=== PATIENT | female | born 1960 | race Two or more races ===

== ENCOUNTER 2020-10-09 09:27 | Outpatient (REF) | payer OTHER, SELFPAY ==
--- NOTE | 2020-10-09 09:33 | MM_ITS ---
EXAMINATION: MM SCREENING DIGITAL BREAST TOMOSYNTHESIS, BILATERAL CLINICAL INFORMATION: Screening. Asymptomatic. The lifetime risk of breast cancer based on the Tyrer-Cuzick Model is 6%. COMPARISON: Mammography: 09/08/2019, 08/16/2018 TECHNIQUE: Digital breast tomosynthesis is performed in both the craniocaudal and mediolateral oblique views along with computer-aided detection (CAD). Synthesized 2D images are generated from the tomosynthesis. FINDINGS: There are scattered areas of fibroglandular density (ACR BI-RADS breast composition Category b). There is no developing density or interval mass or architectural abnormality. There are scattered bilateral benign round and rim calcifications. No suspicious calcifications. The axilla and skin contours are unremarkable. MM/MM tomosynthesis screening BI IMPRESSION: No mammographic evidence of malignancy. ASSESSMENT: BI-RADS 2: Benign RECOMMENDATION: Routine annual mammography screening. This patient's information was entered into a reminder system with a target due date for their next mammogram.
[2020-10-09 11:44] LABS: Estimated Average Glucose 186 mg/dL; Hemoglobin A1c % 8.1 %
[2020-10-09 12:02] LABS: Anion Gap 13 (12-20); Blood Urea Nitrogen 19 mg/dL (9-16); Calcium 10.3 mg/dL (8.4-10.2); Carbon Dioxide 31 mmol/L (22-29); Chloride 102 mmol/L (96-108); Estimated Glomerular Filt Rate > 60; Potassium 4.9 mmol/l (3.3-5.1); Sodium 141 mmol/L (135-145); Uric Acid 3.6 mg/dL (2.4-5.7)
[2020-10-09 12:05] LABS: Glucose Urine UA 500 MG/DL (NEG); Leukocyte Esterase Urine NEG (NEG); Nitrite Urine NEG (NEG); Urine Blood NEG (NEG); Urine Ketones NEG (NEG); Urine Protein NEG (NEG-TRACE)
[2020-10-09 12:08] LABS: Appearance Urine CLEAR; Color Urine YELLOW
[2020-10-09 12:25] LABS: Vitamin D 25-OH Total 26.8 ng/mL (>30)
[2020-10-09 12:32] LABS: Creatinine Urine 71.45 mg/dL; Protein/Creatinine Ratio, Ur 0.13 (<0.2); Total Protein Urine Random 9 mg/dL (<12)
[2020-10-09 12:57] LABS: Bacteria Urine TRACE /LPF; RBC Urine 0 /HPF (0); Squamous Epithelial Cell Urine 1+ /LPF; WBC Urine 0 /HPF (0-4)
[2020-10-09 12:58] LABS: Amorphous Sediment Urine 1+ /LPF
[2020-10-13 15:01] LABS: Renin 12.24 ng/mL/h (0.25-5.82)
== END 2020-10-09 09:28 | disposition home or self-care (01) ==
LOC: HO.MAMMO 09:27
PROVIDERS: Absent Provider Internal Medicine Nephrology; PCP Nurse Practitioner Family; Visit Provider Nurse Practitioner Family
DX: Z12.31 Encounter for screening mammogram for malignant neoplasm of breast (principal); E11.22 Type 2 diabetes mellitus with diabetic chronic kidney disease; N18.9 Chronic kidney disease, unspecified
CPT/HCPCS: 77063; 77067; 80051; 81001; 82088; 82306; 82310; 82565; 83036; 84156; 84244; 84520; 84550

== ENCOUNTER 2020-11-12 09:08 | Outpatient (REF) | payer OTHER, SELFPAY ==
[2020-11-15 11:18] LABS: HPV mRNA E6/E7 rflx Not Detected (Not Detected)
== END 2020-11-12 09:09 | disposition home or self-care (01) ==
LOC: HO.LAB 09:08
PROVIDERS: PCP Nurse Practitioner Family; Visit Provider Obstetrics & Gynecology
DX: Z12.4 Encounter for screening for malignant neoplasm of cervix (principal); R32 Unspecified urinary incontinence
CPT/HCPCS: 87624; 87625; 88142

== ENCOUNTER 2020-12-14 07:05 | Day surgery (SDC) | payer OTHER, SELFPAY ==
[2020-12-10 13:56] VITALS: BMI 28.9
--- NOTE | 2020-12-13 08:38 | HO.ANESPROP2 ---
Documented by User: Jemima Henderson 12/13/20 08:39 HPI - Anesthesia Eval Consult details Narrative: 60yo F for Colonoscopy PMFSH Past Medical History Medical History Arthritis Diabetes Dyslipidemia HTN (hypertension) Renal cyst Surgical History Surgical History H/O cervical polypectomy H/O colonoscopy History of bilateral tubal ligation History of History of carpal tunnel release History of esophagogastroduodenoscopy (EGD) Social History Social History Alcohol intake: never Smoking Status: Never smoker Second Hand Smoke Exposure: No Use of substances other than those prescribed or required for medical reasons: No Advance Directives: No Advance Directives Information Provided: No Advance Directives on File: No Sexual orientation: Straight/Heterosexual Gender identity: female Meds Allergies Allergy/AdvReac Type Severity Reaction Status Date / Time No Known Allergies Allergy Verified 12/14/20 07:13 Home Medications Medication Instructions Recorded Confirmed Type alcohol swabs pad TOPICAL BID 11/12/20 11/12/20 History blood sugar diagnostic #10 ea 11/12/20 11/12/20 History cetirizine 10 mg tablet 10 mg PO DAILY 11/12/20 11/12/20 History cholecalciferol (vitamin D3) 25 25 mcg PO QAM 11/12/20 12/10/20 History mcg (1,000 unit) tablet glipizide 5 mg tablet, extended 5 mg PO BID 11/12/20 12/10/20 History release 24 hr irbesartan 75 mg tablet 75 mg PO DAILY 11/12/20 12/10/20 History lancets 33 gauge #100 ea 11/12/20 11/12/20 History metformin 1,000 mg tablet 1,000 mg PO BID 11/12/20 12/10/20 History simvastatin 40 mg tablet 40 mg PO BEDTIME 11/12/20 12/10/20 History sitagliptin 100 mg tablet 100 mg PO DAILY 11/12/20 12/10/20 History sulindac 200 mg tablet mg PO 11/12/20 11/12/20 History venlafaxine 37.5 mg 37.5 mg PO QAM 11/12/20 12/10/20 History capsule,extended release 24 hr Exam Exam Date and Time: December 13, 2020 0838 Height,Weight and Vital Signs: Height 5 ft 1 in Weight 69.4 kg Pertinent Lab Results Pertinent Lab Results: Laboratory Tests 07/18/20 10/09/20 09:17 10:35 WBC 6.0 Hgb 12.0 Hct 38.5 Plt Count 162 Sodium 141 Potassium 4.9 Chloride 102 Carbon Dioxide 31 H BUN 19 H Creatinine 0.78 Assessment and Plan Assessment Anesthesia Assessment: Chart Reviewed Documented by User: Elsy García 12/14/20 07:48 PMFSH Past Medical History Medical History Arthritis Diabetes Dyslipidemia HTN (hypertension) Renal cyst Family History Family history of problems with anesthesia: No Surgical History Surgical History H/O cervical polypectomy H/O colonoscopy History of bilateral tubal ligation History of History of carpal tunnel release History of esophagogastroduodenoscopy (EGD) History of Problems with Anesthesia: No Social History Social History Alcohol intake: never Smoking Status: Never smoker Second Hand Smoke Exposure: No Use of substances other than those prescribed or required for medical reasons: No Advance Directives: No Advance Directives Information Provided: No Advance Directives on File: No Sexual orientation: Straight/Heterosexual Gender identity: female Meds Allergies Allergy/AdvReac Type Severity Reaction Status Date / Time No Known Allergies Allergy Verified 12/14/20 07:13 Home Medications Medication Instructions Recorded Confirmed Type alcohol swabs pad TOPICAL BID 11/12/20 11/12/20 History blood sugar diagnostic #10 ea 11/12/20 11/12/20 History cetirizine 10 mg tablet 10 mg PO DAILY 11/12/20 11/12/20 History cholecalciferol (vitamin D3) 25 25 mcg PO QAM 11/12/20 12/10/20 History mcg (1,000 unit) tablet glipizide 5 mg tablet, extended 5 mg PO BID 11/12/20 12/10/20 History release 24 hr irbesartan 75 mg tablet 75 mg PO DAILY 11/12/20 12/10/20 History lancets 33 gauge #100 ea 11/12/20 11/12/20 History metformin 1,000 mg tablet 1,000 mg PO BID 11/12/20 12/10/20 History simvastatin 40 mg tablet 40 mg PO BEDTIME 11/12/20 12/10/20 History sitagliptin 100 mg tablet 100 mg PO DAILY 11/12/20 12/10/20 History sulindac 200 mg tablet mg PO 11/12/20 11/12/20 History venlafaxine 37.5 mg 37.5 mg PO QAM 11/12/20 12/10/20 History capsule,extended release 24 hr Exam Height,Weight and Vital Signs: Vital Signs Temp Pulse Resp BP Pulse Ox 12/14/20 07:36 97.9 F 108 H 16 149/81 H 97 Pertinent Lab Results Pertinent Lab Results: POC 232mg/dl Airway Mallampati Class: II TM Dist: >3cm Neck ROM: Full Denture: Upper and Lower Heart: RRR Lungs: CTAB Assessment and Plan Assessment Anesthesia Assessment: Anesthesia Plan Discussed and Chart Reviewed Final Anesthetic Review NPO: Yes ASA Class: II Final Preanesthetic Review: No Changes in Pt Med Stat, Meds/Allgs Chart Reviewed, Consent Obtained/Reviewed and Anes Risks/Benef Reviewed Patient Risk: Low Procedure Risk: Low Assessment/Block/Sedation in SS: Assess/Block/Sedation-SS Anesthetic Plan Anesthetic Plan: MAC: Disposition: Standard PACU
[2020-12-14 07:36] VITALS: BP 149/81; PULSE 108; RESP 16; TEMP 36.6; O2SAT 97
[2020-12-14] MEDS: Lactated Ringers 1,000 ML 100 ML IVCONT (07:44)
[2020-12-14 07:50] LABS: Glucose, Whole Blood 232 mg/dL (60-115)
--- NOTE | 2020-12-14 08:00 | MHC.SHP ---
Pre-Procedural Eval Section B Chief Complaint: Screening Details of Present Illness: screening Relevant Family History (Specify if Yes): No Relevant Social History: None Present Medications: see Short Stay Collaborative assessment Medical History: No relevant PMH History of Previous Operations: No relevant previous surgery Allergies: Allergies Allergy/AdvReac Type Severity Reaction Status Date / Time No Known Allergies Allergy Verified 12/14/20 07:13 Review of Systems Sugical H&P ROS: Negative: Constitution, Cardiovascular, Respiratory, Neurological, Psychiatric, Hem-Onc, Allergic/Immunologic, Gastrointestinal, Genitourinary, Musculoskeletal, Integumentary, Endocrine and Eyes/Ears/Nose/Throat Exam Surgical H&P Exam: Normal: HEENT, Normal: Heart, Normal: Lungs, Normal: Extremities, Normal: Abdomen, Normal: Skin and Normal: Neurological Plan Diagnosis/Plan: Unchanged I have reviewed the history and physical and performed a pertinent physical examination on my patient. No changes have occurred unless specified.
[2020-12-14 08:30] VITALS: BP 100/61; PULSE 97; RESP 16; TEMP 36.1; O2SAT 99
--- NOTE | 2020-12-14 08:30 | PM.OP ---
Brief Operative Note Date of Service: 12/14/20 Pre-op diagnosis: screenihng Post-op diagnosis: same (colon polyp) Procedure: colonoscopy Surgeon: Barron Hdz Anesthesia: MAC Estimated blood loss (mL): 0 Pathology: other (polyp) Condition: stable Disposition: PACU
[2020-12-14 08:45] VITALS: BP 113/41; PULSE 95; RESP 16; TEMP 36.1; O2SAT 98
--- NOTE | 2020-12-14 09:03 | HO.POSTANES ---
Post Anesthesia Evaluation Post Anesthesia Evaluation Vital Signs: Vital Signs Temp Pulse Resp BP Pulse Ox 12/14/20 08:45 97 F 95 16 113/41 L 98 12/14/20 08:30 97 F 97 16 100/61 99 12/14/20 07:36 97.9 F 108 H 16 149/81 H 97 Anesthesia: General (tiva) Mental Status: Awake Pain Control: Satisfactory Nausea/Vomiting: None Hydration: Adequate Anesthesia-Related Issues: No Anes. Related Issues
--- NOTE | 2020-12-14 09:07 | OP_ITS ---
SURGEON: Barron Hdz MD INDICATIONS: Colon cancer screening. PREOPERATIVE DIAGNOSIS: POSTOPERATIVE DIAGNOSIS: PROCEDURE PERFORMED: Colonoscopy to the terminal ileum with snare polypectomy. ESTIMATED BLOOD LOSS: COMPLICATIONS: ANESTHESIA: Medications, monitored anesthesia care. ASSISTANTS: SPECIMENS: DESCRIPTION OF PROCEDURE: History and physical was performed. The risks and benefits of the procedure were explained to the patient. Informed consent was obtained. The patient was placed in the left lateral decubitus position. A digital rectal exam was performed and was found to be normal. The Olympus pediatric video colonoscope was introduced into the rectum and advanced to the cecum without difficulty. The cecum was identified by transillumination, palpation, and identification of ileocecal valve. Examination was performed. The scope was removed. She tolerated the procedure well and was returned to the recovery area in stable condition. FINDINGS: The terminal ileum was normal. Visualized colonic mucosa was normal. There was some liquid stool coating the mucosa, which was washed and suctioned. A single polyp in the rectum measuring approximately 7 mm was removed with a snare and recovered via suction. No other polyps were identified. Retroflexed examination was normal. IMPRESSION: Colon polyp. RECOMMENDATION: Follow up the biopsy results. MD AFRICA Garcia/AMADEO / [id number]
== END 2020-12-14 09:10 | disposition home or self-care (01) ==
PROVIDERS: PCP Nurse Practitioner Family; Visit Provider Internal Medicine Gastroenterology
PROC: 0DJD8ZZ Inspection of Lower Intestinal Tract, Via Natural or Artificial Opening Endoscopic (ICD-10-PCS; CPT 45378; principal; 2020-12-14 08:20)
DX: Z12.11 Encounter for screening for malignant neoplasm of colon (principal); Z80.0 Family history of malignant neoplasm of digestive organs; D12.8 Benign neoplasm of rectum; I10 Essential (primary) hypertension; E11.9 Type 2 diabetes mellitus without complications; Z79.84 Long term (current) use of oral hypoglycemic drugs; Z79.899 Other long term (current) drug therapy
CPT/HCPCS: 45385; 82947; 88305; J2370

== ENCOUNTER 2021-04-24 13:46 | Outpatient (REF) | payer OTHER, SELFPAY ==
--- NOTE | ~2021-04-24 | XR_ITS ---
EXAMINATION: XR SHOULDER, RIGHT CLINICAL INFORMATION: Right shoulder pain. COMPARISON: 12/18/2016 right shoulder radiographs. TECHNIQUE: AP external rotation, Grashey, scapular Y, and axillary views of the right shoulder. FINDINGS: Mild right acromioclavicular degenerative joint changes are seen. There is no acute fracture or dislocation. The soft tissues are unremarkable. XR/XR shoulder RT min 2V IMPRESSION: Mild right acromioclavicular degenerative joint changes without significant change. No acute abnormality.
[2021-04-24 15:46] LABS: Alanine Aminotransferase 28 U/L (0-31); Albumin Level 4.6 g/dL (3.5-5.0); Alkaline Phosphatase 73 U/L (39-117); Anion Gap 16 (12-20); Aspartate Amino Transferase 21 U/L (5-31); Bilirubin Total 0.4 mg/dL (0.0-1.0); Blood Urea Nitrogen 19 mg/dL (9-16); Calcium 10.2 mg/dL (8.4-10.2); Carbon Dioxide 26 mmol/L (22-29); Chloride 100 mmol/L (96-108); Estimated Glomerular Filt Rate > 60; Glucose Random 253 mg/dL (60-115); Potassium 4.5 mmol/L (3.3-5.1); Sodium 137 mmol/L (135-145); Total Protein 7.5 g/dL (6.5-8.0)
== END 2021-04-24 13:47 | disposition home or self-care (01) ==
LOC: HO.LAB 13:46
PROVIDERS: PCP Nurse Practitioner Family; Visit Provider Student in an Organized Health Care Education/Training Program
DX: M89.49 Other hypertrophic osteoarthropathy, multiple sites (principal)
CPT/HCPCS: 36415; 73030; 80053; 99212

== ENCOUNTER 2021-09-16 10:10 | Outpatient (REF) | payer OTHER, SELFPAY ==
[2021-09-16 11:26] LABS: Thyroid Stimulating Hormone 1.76 uIU/mL (0.32-4.0)
[2021-09-17 08:41] LABS: Lyme Abs Screen <0.90 index
[2021-09-17 21:51] LABS: Prolactin 3.7 ng/mL
== END 2021-09-16 10:11 | disposition home or self-care (01) ==
LOC: HO.LAB 10:10
PROVIDERS: PCP Nurse Practitioner Family; Visit Provider Psychiatry & Neurology Neurology
DX: E23.6 Other disorders of pituitary gland (principal); I67.9 Cerebrovascular disease, unspecified
CPT/HCPCS: 36415; 84146; 84443; 86617; 86618

== ENCOUNTER 2021-10-14 10:07 | Outpatient (REF) | payer OTHER, SELFPAY ==
--- NOTE | ~2021-10-14 | MM_ITS ---
EXAMINATION: MM SCREENING DIGITAL BREAST TOMOSYNTHESIS, BILATERAL CLINICAL INFORMATION: Screening. Asymptomatic. The lifetime risk of breast cancer based on the Tyrer-Cuzick Model is 6%. COMPARISON: Mammography: 10/09/2020, 09/08/2019, 08/16/2018 TECHNIQUE: Digital breast tomosynthesis is performed in both the craniocaudal and mediolateral oblique views along with computer-aided detection (CAD). Synthesized 2D images are generated from the tomosynthesis. Additional right MLO view is provided. FINDINGS: There are scattered areas of fibroglandular density (ACR BI-RADS breast composition Category b). There are no significant masses, abnormal calcifications, or other abnormalities. Parenchymal pattern is similar to prior studies. No significant changes. MM/MM tomosynthesis screening BI IMPRESSION: No mammographic evidence of malignancy. ASSESSMENT: BI-RADS 1: Negative RECOMMENDATION: Routine annual mammography screening. This patient's information was entered into a reminder system with a target due date for their next mammogram.
== END 2021-10-14 10:08 | disposition home or self-care (01) ==
LOC: HO.MAMMO 10:07
PROVIDERS: PCP Nurse Practitioner Family; Visit Provider Nurse Practitioner Family
DX: Z12.31 Encounter for screening mammogram for malignant neoplasm of breast (principal)
CPT/HCPCS: 77063; 77067

== ENCOUNTER → 2021-11-14 14:06 | Outpatient (BNVA) | payer OTHER, SELFPAY | PROVIDERS: PCP Nurse Practitioner Family; Visit Provider Obstetrics & Gynecology ==

== ENCOUNTER 2021-11-25 10:39 | Outpatient (REF) | payer OTHER, SELFPAY ==
--- NOTE | ~2021-11-25 | MR_ITS ---
MRI OF THE BRAIN WITHOUT IV CONTRAST INDICATION: Empty sella syndrome. New onset loss of balance. COMPARISON: Brain MRI 12/18/2015. TECHNIQUE: Multiplanar multisequence MR imaging of the brain was obtained without IV contrast. FINDINGS: There is an expanded empty sella which is unchanged. There is no hydrocephalus, extra-axial surface collection, or herniation. Stable mild T2 signal changes throughout the supratentorial white matter, possibly mild chronic microangiopathy though nonspecific. The major flow voids at the skull base are preserved. There is no acute infarct on diffusion-weighted imaging. There is no intracranial hemorrhage on the gradient recalled echo acquisition. The cerebellar tonsils are normally positioned. The cerebellum and brainstem are normal. The craniocervical junction is normal. Osseous marrow signal intensity is homogenous. Possible partially imaged disc protrusion at C5-C6 resulting in mass effect on the cervical cord that would be better assessed with a dedicated cervical spine MRI if there is cervical myelopathy clinically. MR/MR head/brain wo con IMPRESSION: - Stable expanded empty sella. - Stable mild T2 signal changes throughout the supratentorial white matter, possibly mild chronic microangiopathy though nonspecific. - Possible partially imaged disc protrusion at C5-C6 resulting in mass effect on the cervical cord that would be better assessed with a dedicated cervical spine MRI if there is cervical myelopathy clinically.
== END 2021-11-25 10:40 | disposition home or self-care (01) ==
LOC: HO.MRI 10:39
PROVIDERS: PCP Nurse Practitioner Family; Visit Provider Nurse Practitioner Family
DX: E23.0 Hypopituitarism (principal); R26.89 Other abnormalities of gait and mobility
CPT/HCPCS: 70551

== ENCOUNTER 2021-12-13 10:40 | Outpatient (REF) | payer OTHER, SELFPAY ==
--- NOTE | ~2021-12-13 | MR_ITS ---
EXAMINATION: MR CERVICAL SPINE WITHOUT CONTRAST CLINICAL INFORMATION: Possible partially imaged disc protrusion C5-C6. COMPARISON: Brain MRI 11/25/2021. TECHNIQUE: MRI of the cervical spine was performed using routine sequences without contrast. FINDINGS: The cervical vertebral bodies maintain normal heights and alignment. There is moderate disc height loss at C5-C6 with the remaining disc heights fairly well preserved. A minimal amount of marrow edema is seen at the opposing endplates of C5-C6. Mild intramedullary T2 hyperintensity seen at the C5-C6 level, presumably representing myelomalacia. The cord signal otherwise appears normal. There is redemonstration of an enlarged smoothly expanded the left. Intracranial contents are otherwise unremarkable. No significant extraspinal abnormality is seen. SPINAL LEVELS: C2-C3: No posterior disc abnormality. No spinal canal or neural foraminal stenosis. C3-C4: No posterior disc abnormality. No spinal canal or neural foraminal stenosis. C4-C5: Disc osteophyte complex without spinal canal stenosis. Left uncovertebral hypertrophy narrows left neural foramen. C5-C6: Disc osteophyte complex with uncovertebral hypertrophy and ligamentum flavum infolding result in ventral and dorsal cord deformation with severe spinal canal stenosis. Moderate to severe right and moderate left neural foraminal stenosis. C6-C7: Mild disc bulging. Right-sided perineural cyst. No spinal canal stenosis. Mild uncovertebral hypertrophy. Mild right neural foraminal stenosis. C7-T1: No posterior disc abnormality. No spinal canal or neural foraminal stenosis. MR/MR cervical spine wo con IMPRESSION: At C5-C6 level there is disc osteophyte complex with ligamentum flavum infolding and uncovertebral hypertrophy resulting in severe spinal canal stenosis with deformation of the cord and T2 hyperintense intramedullary signal change likely reflecting myelomalacia. Moderate to severe right and moderate left neural foraminal stenosis. Disc height loss with endplate edema. No significant abnormality is seen at the remaining cervical levels.
== END 2021-12-13 10:41 | disposition home or self-care (01) ==
LOC: HO.MRI 10:40
PROVIDERS: Visit Provider Nurse Practitioner Family
DX: R26.89 Other abnormalities of gait and mobility (principal); R51.9 Headache, unspecified
CPT/HCPCS: 72141

== ENCOUNTER 2022-02-07 13:00 | Outpatient (RCR) | payer OTHER, SELFPAY | END 2022-03-25 13:19 | disposition home or self-care (01) | LOC: HO.PT 13:00 | PROVIDERS: PCP Nurse Practitioner Family; Visit Provider Physician Assistant | DX: M54.2 Cervicalgia (principal) | CPT/HCPCS: 97110; 97140; 97161; 97530 ==

== ENCOUNTER → 2022-04-25 12:22 | Outpatient (BNVA) | payer OTHER, SELFPAY | PROVIDERS: Visit Provider Nurse Practitioner Family | DX: M89.49 Other hypertrophic osteoarthropathy, multiple sites (principal); M25.512 Pain in left shoulder | CPT/HCPCS: 99212 ==

== ENCOUNTER 2022-05-03 08:22 | Outpatient (REF) | payer OTHER, SELFPAY ==
[2022-05-03 09:46] LABS: Alanine Aminotransferase 19 U/L (0-31); Albumin Level 4.6 g/dL (3.5-5.0); Alkaline Phosphatase 73 U/L (39-117); Anion Gap 12 (12-20); Aspartate Amino Transferase 16 U/L (5-31); Bilirubin Total 0.6 mg/dL (0.0-1.0); Blood Urea Nitrogen 17 mg/dL (9-16); Calcium 9.5 mg/dL (8.4-10.2); Carbon Dioxide 27 mmol/L (22-29); Chloride 106 mmol/L (96-108); Estimated Glomerular Filt Rate > 60; Glucose Random 94 mg/dL (60-115); Potassium 4.9 mmol/L (3.3-5.1); Sodium 140 mmol/L (135-145); Total Protein 7.6 g/dL (6.5-8.0)
== END 2022-05-03 08:23 | disposition home or self-care (01) ==
LOC: HO.LAB 08:22
PROVIDERS: PCP Nurse Practitioner Family; Visit Provider Nurse Practitioner Family
DX: M89.49 Other hypertrophic osteoarthropathy, multiple sites (principal)
CPT/HCPCS: 36415; 80053

== ENCOUNTER 2022-05-12 10:07 | Outpatient (REF) | payer OTHER, SELFPAY ==
--- NOTE | ~2022-05-12 | XR_ITS ---
EXAMINATION: XR SHOULDER, LEFT CLINICAL INFORMATION: Pain COMPARISON: None TECHNIQUE: Four views of the left shoulder. FINDINGS: No acute visible fracture or dislocation. Mild degenerative changes of the glenohumeral and acromioclavicular joint with joint space narrowing and periarticular osteophyte formation. Joint spaces and alignment are otherwise maintained. Soft tissues are unremarkable. Visualized portions of the left chest are unremarkable. XR/XR shoulder LT min 2V IMPRESSION: 1. No acute visible fracture or dislocation. 2. Mild degenerative changes of the glenohumeral and acromioclavicular joint.
== END 2022-05-12 10:08 | disposition home or self-care (01) ==
LOC: HO.XRAY 10:07
PROVIDERS: PCP Nurse Practitioner Family; Visit Provider Nurse Practitioner Family
DX: M25.512 Pain in left shoulder (principal)
CPT/HCPCS: 73030

== ENCOUNTER 2022-06-16 09:32 | Outpatient (REF) | payer OTHER, SELFPAY ==
[2022-06-16 10:01] LABS: MANUAL DIFF FLAG NO
[2022-06-16 10:20] LABS: Basophils Percent Auto 0.6 % (0-2); Eosinophils Absolute Auto 0.1 X10*3/uL (0.0-0.4); Eosinophils Percent Auto 2.1 % (0-4); Hematocrit 37.7 % (37.0-47.0); Hemoglobin 11.8 g/dl (12.0-16.0); Imm Gran Abs Auto 0.01 X10*3/uL (0.00-0.03); Imm Gran Pct Auto 0.2 % (0.0-0.4); Lymphocytes Absolute Auto 1.8 X10*3/uL (1.2-4.9); Lymphocytes Percent Auto 34.5 % (20-40); Mean Corpuscular HGB Conc 31.3 g/dl (31.0-35.0); Mean Corpuscular Hemoglobin 26.5 pg (27.0-33.0); Mean Corpuscular Volume 84.7 fL (80.0-98.0); Mean Platelet Volume 12.8 fL (9.4-12.3); Monocytes Absolute Auto 0.5 X10*3/uL (0.1-1.2); Monocytes Percent Auto 8.8 % (2-11); Neutrophils Absolute Auto 2.8 x10*3/uL (2.0-8.3); Neutrophils Percent Auto 53.8 % (45-73); Platelet Count 175 X10*3/uL (160-400); Red Blood Count 4.45 X10*6/uL (4.20-5.50); Red Cell Distribution Width 14.4 % (11.0-16.0); White Blood Count 5.2 X10*3/uL (4.8-10.8)
[2022-06-16 10:27] LABS: Appearance Urine CLEAR; Color Urine YELLOW; Glucose Urine UA >=1000 MG/DL (NEG); Leukocyte Esterase Urine NEG (NEG); Nitrite Urine NEG (NEG); PH 5.5 (5.0-8.0); Specific Gravity - Urine >= 1.030 (1.005-1.025); Urine Blood NEG (NEG); Urine Ketones NEG (NEG); Urine Protein NEG (NEG-TRACE)
[2022-06-16 10:46] LABS: Squamous Epithelial Cell Urine 1+ /LPF
[2022-06-16 10:51] LABS: Anion Gap 11 (12-20); Blood Urea Nitrogen 18 mg/dL (9-16); Calcium 9.6 mg/dL (8.4-10.2); Carbon Dioxide 28 mmol/L (22-29); Chloride 106 mmol/L (96-108); Estimated Glomerular Filt Rate > 60; Iron 52 mcg/dL (30-160); Percent Iron Saturation 13 % (15-50); Potassium 4.8 mmol/L (3.3-5.1); Sodium 140 mmol/L (135-145); Total Iron Binding Capacity 403 mcg/dL (228-428); Unsaturated Iron Binding 351 ug/dL
[2022-06-16 11:08] LABS: Estimated Average Glucose 151 mg/dL; Hemoglobin A1c % 6.9 %
[2022-06-16 11:14] LABS: Vitamin D 25-OH Total 30.3 ng/mL (>30)
[2022-06-16 11:53] LABS: Creatinine Urine 108.63 mg/dL; Protein/Creatinine Ratio, Ur 0.09 (<0.2); Total Protein Urine Random 10 mg/dL (<12)
[2022-06-17 11:22] LABS: PTHI 49 pg/mL (16-77)
== END 2022-06-16 09:33 | disposition home or self-care (01) ==
LOC: HO.LAB 09:32
PROVIDERS: PCP Nurse Practitioner Family; Visit Provider Internal Medicine Nephrology
DX: Q61.9 Cystic kidney disease, unspecified (principal); N18.2 Chronic kidney disease, stage 2 (mild); E11.22 Type 2 diabetes mellitus with diabetic chronic kidney disease
CPT/HCPCS: 36415; 80051; 81001; 82306; 82310; 82565; 83036; 83540; 83970; 84156; 84520; 85025

== ENCOUNTER 2022-09-25 13:09 | Outpatient (REF) | payer OTHER, SELFPAY | END 2022-09-25 13:10 | disposition home or self-care (01) | LOC: HO.LNP 13:09 | PROVIDERS: PCP Nurse Practitioner Family; Visit Provider Obstetrics & Gynecology | DX: N90.89 Other specified noninflammatory disorders of vulva and perineum (principal) | CPT/HCPCS: 56605; 56606; 88305; 88312; 99212 ==

== ENCOUNTER 2022-10-15 11:36 | Outpatient (REF) | payer OTHER, SELFPAY ==
--- NOTE | ~2022-10-15 | MM_ITS ---
EXAMINATION: MM SCREENING DIGITAL BREAST TOMOSYNTHESIS, BILATERAL CLINICAL INFORMATION: Screening. Asymptomatic. The lifetime risk of breast cancer based on the Tyrer-Cuzick Model is 5%. COMPARISON: Mammography: 10/14/2021, 10/09/2020, 09/08/2019 TECHNIQUE: Digital breast tomosynthesis is performed in both the craniocaudal and mediolateral oblique views along with computer-aided detection (CAD). Synthesized 2D images are generated from the tomosynthesis. FINDINGS: There are scattered areas of fibroglandular density (ACR BI-RADS breast composition Category b). There is no developing density or interval mass or architectural abnormality. The bilateral axilla and skin contours are unremarkable. There are scattered bilateral benign round calcifications. The left breast also has tightly grouped increased calcifications mid central 3:00 position. Patient will be recalled for additional magnification views to fully characterize. MM/MM tomosynthesis screening BI IMPRESSION: Left: -Tightly grouped calcifications mid central 3:00. Right: -No mammographic evidence of malignancy. ASSESSMENT: BI-RADS 0: Incomplete - Need Additional Imaging Evaluation RECOMMENDATION: 1. Additional views of the left breast (magnification CC, magnification ML). 2. Radiology department staff will contact the patient for additional imaging. This patient's information was entered into a reminder system with a target due date for their next mammogram.
== END 2022-10-15 11:37 | disposition home or self-care (01) ==
LOC: HO.MAMMO 11:36
PROVIDERS: PCP Registered Nurse; Visit Provider Registered Nurse
DX: Z12.31 Encounter for screening mammogram for malignant neoplasm of breast (principal)
CPT/HCPCS: 77063; 77067

== ENCOUNTER → 2022-10-21 12:38 | Outpatient (BNVA) | payer OTHER, SELFPAY | PROVIDERS: PCP Registered Nurse; Visit Provider Obstetrics & Gynecology | DX: N90.89 Other specified noninflammatory disorders of vulva and perineum (principal) | CPT/HCPCS: 99212 ==

== ENCOUNTER 2022-10-29 13:22 | Outpatient (REF) | payer OTHER, SELFPAY ==
--- NOTE | ~2022-10-29 | MM_ITS ---
EXAMINATION: MM DIAGNOSTIC DIGITAL MAMMOGRAPHY, LEFT CLINICAL INFORMATION: Recall from screening for question of increased tightly grouped calcifications mid central left breast 3:00. TC score 5%. COMPARISON: Mammography: 10/15/2022, 10/14/2021, 10/09/2020 TECHNIQUE: Digital mammography is performed in the following views: Magnification left CC, magnification left ML x3. FINDINGS: There are scattered areas of fibroglandular density (ACR BI-RADS breast composition Category b). The additional magnification views show vague tightly grouped calcifications for additional evaluation appear coarse and benign. No suspicious findings. No suspicious changes. There are other scattered benign round calcifications in the breast similar to prior exams. Results are discussed with the patient at time of visit, using an thermal surfacing machine operator. MM/MM added views LT IMPRESSION: Additional magnification views show tightly grouped benign coarse calcifications central left breast. ASSESSMENT: BI-RADS 2: Benign RECOMMENDATION: Routine annual mammography screening. This patient's information was entered into a reminder system with a target due date for their next mammogram.
== END 2022-10-29 13:23 | disposition home or self-care (01) ==
LOC: HO.MAMMO 13:22
PROVIDERS: PCP Registered Nurse; Visit Provider Registered Nurse
DX: R92.1 Mammographic calcification found on diagnostic imaging of breast (principal)
CPT/HCPCS: 77065

== ENCOUNTER 2022-11-21 10:35 | Outpatient (REF) | payer OTHER, SELFPAY ==
[2022-11-21 10:57] LABS: MANUAL DIFF FLAG NO
[2022-11-21 11:24] LABS: Basophils Percent Auto 0.5 % (0-2); Eosinophils Absolute Auto 0.1 X10*3/uL (0.0-0.4); Eosinophils Percent Auto 2.1 % (0-4); Hematocrit 42.2 % (37.0-47.0); Hemoglobin 13.2 g/dl (12.0-16.0); Imm Gran Abs Auto 0.02 X10*3/uL (0.00-0.03); Imm Gran Pct Auto 0.4 % (0.0-0.4); Lymphocytes Absolute Auto 1.5 X10*3/uL (1.2-4.9); Lymphocytes Percent Auto 26.7 % (20-40); Mean Corpuscular HGB Conc 31.3 g/dl (31.0-35.0); Mean Corpuscular Hemoglobin 25.6 pg (27.0-33.0); Mean Corpuscular Volume 81.9 fL (80.0-98.0); Monocytes Absolute Auto 0.5 X10*3/uL (0.1-1.2); Monocytes Percent Auto 7.9 % (2-11); Neutrophils Absolute Auto 3.6 x10*3/uL (2.0-8.3); Neutrophils Percent Auto 62.4 % (45-73); Platelet Count 171 X10*3/uL (160-400); Red Blood Count 5.15 X10*6/uL (4.20-5.50); White Blood Count 5.7 X10*3/uL (4.8-10.8)
[2022-11-21 11:57] LABS: Estimated Average Glucose 140 mg/dL; Hemoglobin A1c % 6.5 %
[2022-11-21 12:58] LABS: Creatinine Urine 32.35 mg/dL; Total Protein Urine Random < 7 mg/dL (<12)
[2022-11-21 15:29] LABS: Anion Gap 12 (12-20); Blood Urea Nitrogen 18 mg/dL (9-16); Calcium 10.4 mg/dL (8.4-10.2); Carbon Dioxide 30 mmol/L (22-29); Chloride 104 mmol/L (96-108); Estimated Glomerular Filt Rate > 60; Iron 99 mcg/dL (30-160); Percent Iron Saturation 26 % (15-50); Potassium 5.2 mmol/L (3.3-5.1); Sodium 141 mmol/L (135-145); Total Iron Binding Capacity 380 mcg/dL (228-428); Unsaturated Iron Binding 281 ug/dL
[2022-11-21 15:44] LABS: Vitamin D 25-OH Total 27.5 ng/mL (>30)
[2022-11-23 13:09] LABS: Calcium (PTHI) 10.4 mg/dL (8.6-10.4); PTHI 25 pg/mL (16-77)
== END 2022-11-21 10:36 | disposition home or self-care (01) ==
LOC: HO.LAB 10:35
PROVIDERS: PCP Physician Assistant; Visit Provider Internal Medicine Nephrology
DX: Q61.9 Cystic kidney disease, unspecified (principal); N18.2 Chronic kidney disease, stage 2 (mild)
CPT/HCPCS: 36415; 80051; 82306; 82310; 82565; 83036; 83540; 83970; 84156; 84520; 85025

== ENCOUNTER → 2022-12-30 10:49 | Outpatient (BNVA) | payer OTHER, SELFPAY | PROVIDERS: PCP Physician Assistant; Visit Provider Obstetrics & Gynecology | DX: N90.89 Other specified noninflammatory disorders of vulva and perineum (principal) | CPT/HCPCS: 99212 ==

== ENCOUNTER 2023-01-06 14:20 | Outpatient (REF) | payer OTHER, SELFPAY | END 2023-01-06 14:21 | disposition home or self-care (01) | LOC: HO.LAB 14:20 | PROVIDERS: PCP Physician Assistant; Visit Provider Obstetrics & Gynecology | DX: L98.499 Non-pressure chronic ulcer of skin of other sites with unspecified severity (principal) | CPT/HCPCS: 99212 ==

== ENCOUNTER 2023-01-06 15:01 | Outpatient (REF) | payer OTHER, SELFPAY | END 2023-01-06 15:02 | disposition home or self-care (01) | LOC: HO.LNP 15:01 | PROVIDERS: Visit Provider Obstetrics & Gynecology | DX: N90.89 Other specified noninflammatory disorders of vulva and perineum (principal) | CPT/HCPCS: 87255 ==

== ENCOUNTER 2023-01-21 13:04 | Outpatient (REF) | payer OTHER, SELFPAY | END 2023-01-21 13:05 | disposition home or self-care (01) | LOC: HO.LNP 13:04 | PROVIDERS: PCP Physician Assistant; Visit Provider Obstetrics & Gynecology | DX: N89.8 Other specified noninflammatory disorders of vagina (principal); A60.00 Herpesviral infection of urogenital system, unspecified | CPT/HCPCS: 99212 ==

== ENCOUNTER 2023-01-21 13:29 | Outpatient (REF) | payer OTHER, SELFPAY ==
[2023-01-21 18:32] LABS: CT PCR NOT DETECTED (Not Detect.); NG PCR NOT DETECTED (Not Detect.)
[2023-01-22 09:01] LABS: BV Int Neg Control Negative (Negative); BV Int Pos Control Positive (Positive)
[2023-01-23 08:59] LABS: HBsAGNum1 0.37 S/CO (0.00-0.99); HIV AB/AG Nonreactive (Nonreactive); HIV Num 1 0.06 S/CO (0.00-0.99); Hepatitis B Surface Antigen Negative (Negative); ~HepC Num1 0.11 S/CO (0.00-0.79); ~Hepatitis C Antibody Nonreactive (Nonreactive)
[2023-01-23 09:15] LABS: Syphilis Screen Nonreactive (Nonreactive)
== END 2023-01-21 13:30 | disposition home or self-care (01) ==
LOC: HO.LAB 13:29
PROVIDERS: PCP Registered Nurse; Visit Provider Obstetrics & Gynecology
DX: A60.00 Herpesviral infection of urogenital system, unspecified (principal)
CPT/HCPCS: 0353U; 86780; 86803; 87340; 87389; 87480; 87510; 87660

== ENCOUNTER 2023-02-06 08:33 | Outpatient (REF) | payer OTHER, SELFPAY ==
[2023-02-06 08:52] LABS: MANUAL DIFF FLAG NO
[2023-02-06 09:53] LABS: Basophils Percent Auto 0.6 % (0-2); Eosinophils Absolute Auto 0.1 X10*3/uL (0.0-0.4); Eosinophils Percent Auto 1.7 % (0-4); Estimated Average Glucose 163 mg/dL; Hematocrit 42.7 % (37.0-47.0); Hemoglobin 13.4 g/dl (12.0-16.0); Hemoglobin A1c % 7.3 %; Imm Gran Abs Auto 0.01 X10*3/uL (0.00-0.03); Imm Gran Pct Auto 0.2 % (0.0-0.4); Lymphocytes Absolute Auto 1.5 X10*3/uL (1.2-4.9); Lymphocytes Percent Auto 30.7 % (20-40); Mean Corpuscular HGB Conc 31.4 g/dl (31.0-35.0); Mean Corpuscular Hemoglobin 26.2 pg (27.0-33.0); Mean Corpuscular Volume 83.6 fL (80.0-98.0); Monocytes Absolute Auto 0.4 X10*3/uL (0.1-1.2); Monocytes Percent Auto 8.5 % (2-11); Neutrophils Absolute Auto 2.8 x10*3/uL (2.0-8.3); Neutrophils Percent Auto 58.3 % (45-73); Platelet Count 149 X10*3/uL (160-400); Red Blood Count 5.11 X10*6/uL (4.20-5.50); Red Cell Distribution Width 16.1 % (11.0-16.0); White Blood Count 4.7 X10*3/uL (4.8-10.8)
[2023-02-06 10:31] LABS: Anion Gap 12 (12-20); Blood Urea Nitrogen 21 mg/dL (9-16); Calcium 9.7 mg/dL (8.4-10.2); Carbon Dioxide 29 mmol/L (22-29); Chloride 104 mmol/L (96-108); Estimated Glomerular Filt Rate > 60; Iron 86 mcg/dL (30-160); Percent Iron Saturation 23 % (15-50); Potassium 5.1 mmol/L (3.3-5.1); Sodium 140 mmol/L (135-145); Total Iron Binding Capacity 379 mcg/dL (228-428); Unsaturated Iron Binding 293 ug/dL
[2023-02-06 11:08] LABS: Creatinine Urine 83.67 mg/dL; Protein/Creatinine Ratio, Ur 0.11 (<0.2); Total Protein Urine Random 9 mg/dL (<12)
[2023-02-13 11:34] LABS: Calcium (PTHI) 10.2 mg/dL (8.6-10.4)
== END 2023-02-06 08:34 | disposition home or self-care (01) ==
LOC: HO.LAB 08:33
PROVIDERS: PCP Registered Nurse; Visit Provider Internal Medicine Nephrology
DX: Q61.9 Cystic kidney disease, unspecified (principal); N18.2 Chronic kidney disease, stage 2 (mild)
CPT/HCPCS: 36415; 80051; 82306; 82310; 82565; 83036; 83540; 83970; 84156; 84520; 85025

== ENCOUNTER → 2023-03-18 10:44 | Outpatient (BNVA) | payer OTHER, SELFPAY | PROVIDERS: PCP Registered Nurse; Visit Provider Nurse Practitioner Family | DX: N28.1 Cyst of kidney, acquired (principal) | CPT/HCPCS: 99202 ==

== ENCOUNTER → 2023-04-21 13:33 | Outpatient (BNVA) | payer OTHER, SELFPAY | PROVIDERS: PCP Internal Medicine; Visit Provider Nurse Practitioner Family | DX: M89.49 Other hypertrophic osteoarthropathy, multiple sites (principal); M19.011 Primary osteoarthritis, right shoulder; M19.012 Primary osteoarthritis, left shoulder | CPT/HCPCS: 99212 ==

== ENCOUNTER 2023-04-24 10:52 | Outpatient (REF) | payer OTHER, SELFPAY ==
--- NOTE | ~2023-04-24 | MR_ITS ---
EXAMINATION: MR kidney with and without contrast CLINICAL INFORMATION: Kidney cysts COMPARISON: Abdominal ultrasound and CT of the abdomen and pelvis from 2016 and abdominal ultrasound from 2018 TECHNIQUE: Sagittal axial and coronal sequences through the kidneys with and without contrast. Patient received 6.5 mL IV Gadavist contrast. FINDINGS: The lung bases are clear. The liver is normal in size and shape. There is signal loss in the liver on out of phase CT suggestive of fatty infiltration. No focal liver lesion. Small 3 mm low signal lesion against the gallbladder wall is appreciated axial T2 sequence only image 19 series 4. This is not definitely seen on other sequences and difficult to characterize. This may correspond to previously identified gallbladder wall polyp. The gallbladder is otherwise normal. There is no intra or extrahepatic biliary duct dilatation. The pancreas is normal. The main pancreatic duct does not appear dilated. The spleen is normal. The adrenal glands are normal. There is a 5.5 x 5.5 x 7 cm cyst in the upper pole of the right kidney. This has several thin septations. No abnormal enhancement or solid component is seen. Compatible with a Bosniak type II cyst. There is a small 1 cm cyst in the lower pole of the left kidney. This is suggestive of a simple cyst, Bosniak type I. The kidneys are otherwise normal. Visualized bowel is normal. No ascites or adenopathy is seen. No aneurysm is seen. No hernia. Degenerative changes of the spine. MR/MR kidney wo/w con IMPRESSION: 5.5 x 5.5 x 7 cm cyst in the upper pole of the right kidney with several thin nonenhancing septations or Bosniak type II cyst. 1 cm simple Bosniak type I cyst in the lower pole of the left kidney. Gallbladder lesion is not seen on all sequences and difficult to characterize. This could be further evaluated with ultrasound if clinically indicated.
== END 2023-04-24 10:53 | disposition home or self-care (01) ==
LOC: HO.MRI 10:52
PROVIDERS: PCP Registered Nurse; Visit Provider Nurse Practitioner Family
DX: N28.1 Cyst of kidney, acquired (principal)
CPT/HCPCS: 74181; A9585

== ENCOUNTER 2023-06-15 10:30 | Outpatient (AMB) | payer OTHER, SELFPAY ==
--- NOTE | 2023-06-15 10:35 | MHC.OFFVIS ---
Intake Intake Visit Reasons: Complex cyst- MRI follow up(SET) Intake Note: Patient presents for follow up MRI/complex cyst (imaging 04/24) Urology Medications: none Blood Thinner: none Cognos Developer Required: Yes Cognos Developer Name: britney Valentin [id number] Accompanied by: Self / Same As Patient Allergies No Known Allergies Allergy (Verified 06/15/23 10:53) Medication List - Last Reconciled 06/15/23 by TISH Jerez- alcohol swabs pad topical BID blood sugar diagnostic As directed cetirizine 10 mg PO DAILY cholecalciferol (vitamin D3) 25 mcg PO QAM empagliflozin (Jardiance) 10 mg PO DAILY gabapentin 100 mg PO BEDTIME ketotifen fumarate 0.025%(0.035%) (Eye Itch Relief) 1 drp ophthalmic (eye) BID PRN lancets As directed losartan 25 mg PO DAILY metformin 1,000 mg PO BID simvastatin 40 mg PO BEDTIME sulindac 200 mg PO DAILY PRN venlafaxine ER 37.5 mg PO QAM HPI HPI Comments History of Present Illness Details Lauryn is a pleasant 62-year-old [place]er-speaking female patient of Dr. Chowdary. She has a past medical history of arthritis, diabetes, dyslipidemia, hypertension, and renal cyst. She presents to the office today for a follow up. Of note, patient was seen approxitametly 3 months as a new patient for complex renal cyst at which time a MRI renal mass protocol was ordered and completed. These results were reviewed with the patient today. There is a 5.5 x 5.5 x 7 cm cyst in the upper pole of the right kidney. This has several thin septations. No abnormal enhancement or solid component is seen. Compatible with a Bosniak type II cyst. There is a small 1 cm cyst in the lower pole of the left kidney. This is suggestive of a simple cyst, Bosniak type I. The kidneys are otherwise normal. In discussion with the patient today she reports to be doing and feeling well. When asked patient denies any urological issues or concerns at this time. She denies urinary urgency, urinary frequency, incontinence, nocturia, hematuria, dysuria, foul smelling urine, changes to urinary stream, flank pain, fever, and or chills. She is happy with her current voiding parameters. [facility] Medical History Arthritis Diabetes Dyslipidemia HTN (hypertension) Renal cyst Surgical History H/O cervical biopsy H/O cervical polypectomy H/O colonoscopy History of bilateral tubal ligation History of History of carpal tunnel release History of esophagogastroduodenoscopy (EGD) Family History Mother Diabetes Hypertension CVD (cardiovascular disease) Father Hypertension Prostate cancer Sister Lupus Skin cancer Social History Alcohol intake: never Patient Tobacco Use Status: Never used Tobacco Second Hand Smoke Exposure: No Sexual orientation: Straight/Heterosexual Gender identity: Female Female Reproductive History Menstrual Age of Menarche: 12 Review of Systems Const All systems reviewed & are unremarkable except as noted in HPI and below Eyes Reports no additional complaints ENT Reports no additional complaints Card Reports as per HPI Resp Reports no additional complaints GI Reports no additional complaints Reports as per HPI Musc Reports as per HPI Neuro Reports no additional complaints Psych Reports no additional complaints Endo Reports as per HPI Rodriguez/Lymph Reports no additional complaints Aller/Immun Reports no additional complaints Physical Exam Const General: cooperative, healthy appearing, comfortable, no acute distress, well developed, alert and awake Orientation/consciousness: patient oriented x3 Limitations: no limitations HEENT Head: Yes normal to inspection, Yes normocephalic and Yes atraumatic Ears: hearing grossly normal bilaterally Eyes General: appearance normal, both eyes and all related structures Neck Neck: Yes normal visual inspection and Yes trachea midline Chest Chest palpation & inspection: normal inspection of the chest Resp Effort & Inspection: normal respiratory effort and able to speak in complete sentences Cardio Rate: regular rate GI Inspection: Yes normal to inspection General: Yes no CVA tenderness Back/Spine/Pelvis Back: no CVA tenderness Skin General skin exam: no rashes or lesions noted Neuro General: patient oriented x3 Extrem General: Yes normal to inspection Psych Appearance: grossly normal and well kempt Mental Status: mental status grossly normal Speech and movement: Normal speech and movement present and Clear speech present Affect: normal affect Attitude: cooperative Thought process: Normal thought process present Thought content: Normal thought content present Insight: Good insight present (Psych) Judgement: Good judgement present (Psych) Results Reviewed Results Reviewed: Date of Service: 04/24/23 EXAMINATION: MR kidney with and without contrast FINDINGS: The liver is normal in size and shape. There is signal loss in the liver on out of phase CT suggestive of fatty infiltration. No focal liver lesion. Small 3 mm low signal lesion against the gallbladder wall is appreciated axial T2 sequence only image 19 series 4. This is not definitely seen on other sequences and difficult to characterize. This may correspond to previously identified gallbladder wall polyp. The gallbladder is otherwise normal. There is no intra or extrahepatic biliary duct dilatation. The pancreas is normal. The main pancreatic duct does not appear dilated. The spleen is normal. The adrenal glands are normal. There is a 5.5 x 5.5 x 7 cm cyst in the upper pole of the right kidney. This has several thin septations. No abnormal enhancement or solid component is seen. Compatible with a Bosniak type II cyst. There is a small 1 cm cyst in the lower pole of the left kidney. This is suggestive of a simple cyst, Bosniak type I. The kidneys are otherwise normal. Visualized bowel is normal. No ascites or adenopathy is seen. No aneurysm is seen. No hernia. Degenerative changes of the spine.? IMPRESSION: 5.5 x 5.5 x 7 cm cyst in the upper pole of the right kidney with several thin nonenhancing septations or Bosniak type II cyst. 1 cm simple Bosniak type I cyst in the lower pole of the left kidney. Gallbladder lesion is not seen on all sequences and difficult to characterize. This could be further evaluated with ultrasound if clinically indicated. Assessment & Plan Assessment & Plan (1) Complex renal cyst: Code(s): N28.1 - Cyst of kidney, acquired Plan In office urinalysis results reviewed with the patient today; as noted above. Recent MRI renal mass protocol results reviewed with the patient today; as noted above. Discussed at length renal cysts, classifications, and management. Patient denies any urological issues or concerns at this time. She reports be happy with current voiding parameters. Renal ultrasound in 1 year. Follow-up in 1 year with imaging to be completed prior; or sooner with any issues, concerns, and or questions. Orders: Orders US renal BI 364 Days N28.1 - Cyst of kidney, acquired AMB Urinalysis Automated Today Z13.9 - Encounter for screening, unspecified Patient Instructions: The patient had an opportunity to ask questions regarding the treatment plan. All questions were answered. Physical exam, labs, and imaging were discussed and reviewed in detail. As well as risks, benefits, and discussion of treatment choices. No major barriers to understanding were identified. The patient expressed understanding and agreement with the above treatment plan. The patient was made aware they should contact our office by phone for worsening of their current condition, the appearance of new symptoms, or with any questions or concerns. Compliance is encouraged with any medications and follow up testing that is ordered. It is a privilege to be allowed the opportunity to participate in? your urological care.? Again, if you have any questions or concerns If you have any questions or concerns please do not hesitate to contact me. The office is [phone]. This note is constructed using voice recognition software. While every effort has been made to ensure accuracy green prize packer errors may have been included. Yours sincerely, IVAN Jerez Coding Level of Care Code Est Pt Level 3 (91475) Diagnoses Complex renal cyst N28.1
== END 2023-06-15 11:06 | disposition home or self-care (01) ==
PROVIDERS: Visit Provider Nurse Practitioner Family
DX: N28.1 Cyst of kidney, acquired (principal)
CPT/HCPCS: 99213

== ENCOUNTER → 2023-06-15 10:30 | Outpatient (BNVA) | payer OTHER, SELFPAY | PROVIDERS: Visit Provider Nurse Practitioner Family | DX: N28.1 Cyst of kidney, acquired (principal) | CPT/HCPCS: 99212 ==

== ENCOUNTER 2023-08-04 08:11 | Outpatient (REF) | payer OTHER, SELFPAY ==
--- NOTE | ~2023-08-04 | CT_ITS ---
EXAMINATION: CT ABDOMEN WITHOUT AND WITH CONTRAST CLINICAL INFORMATION: Renal cysts. COMPARISON: MR abdomen 04/24/2023: A 5.5 x 5.5 x 7 cm cyst in the upper pole of the right kidney with several thin nonenhancing septations or Bosniak type II cyst. 1 cm simple Bosniak type I cyst in the lower pole of the left kidney. Abdominal ultrasound 06/08/2018. CT abdomen/pelvis 06/18/2016. TECHNIQUE: Contiguous axial thin section helical images of the abdomen were performed before and after the administration of oral contrast and 85 mL of Omnipaque 350 intravenous contrast. The data set was reformatted in the coronal and sagittal planes and reviewed on an independent workstation. This CT examination was performed using dose optimization techniques as appropriate, variously including the following: *Automated exposure control *Adjustment of mA and/or kV according to patient size (this includes techniques or standardized protocols for targeted exams where dose is matched to indication/reason for exam; i.e. extremities or head) *Use of iterative reconstruction technique DLP: 412.22 mGy-cm LUNG BASES: Heart size normal. Coronary calcium is present. No suspicious lung masses, infiltrates or effusions are seen. LIVER, GALLBLADDER, AND BILIARY TREE: The liver is enlarged at 21 cm in cephalocaudad dimension. On non-contrast imaging it is higher in attenuation than the spleen which is not suggestive of hepatic steatosis. No focal hepatic lesion or biliary ductal dilatation is present. The gallbladder is unremarkable with no evidence of radiopaque gallstones, gallbladder wall thickening, or obvious pericholecystic inflammatory changes. PANCREAS: Unremarkable. SPLEEN: Unremarkable. ADRENAL GLANDS: Unremarkable. KIDNEYS AND URETERS: The kidneys are normal in size, shape, and attenuation. A benign Bosniak class I cyst is seen in the upper pole of the right kidney measuring 7.4 cm in maximal transverse dimension. At the time of the recent MRI maximal measurement was 7.0 cm. On the 2016 CT scan, maximal measurement was 5.0 cm. No solid component. The septations seen on the prior ultrasound as well as on the MRI exam cannot be appreciated on the CT study. Some tiny benign cysts are again noted in the left kidney. No worrisome solid renal masses.. No hydronephrosis, hydroureter, or calculi seen. No perinephric stranding. GASTROINTESTINAL TRACT: The small and large bowel are unremarkable. The partially visualized appendix is unremarkable. ABDOMINAL WALL: No significant hernia is appreciated. LYMPH NODES: Normal. VASCULAR: Unremarkable. OSSEOUS STRUCTURES: Mild degenerative changes present in the spine. No bony destruction. CT/CT abdomen wo/w IV con IMPRESSION: 1. Benign Bosniak class 1 right renal cyst has increased in size now measuring 7.4 cm. Septations which were seen at MRI and ultrasound are not visualized on the CT scan. No additional imaging or followup is needed. No worrisome solid renal masses are seen. 2. Incidental note made of hepatomegaly. Fleischner guidelines were followed.
[2023-08-04] MEDS: iohexoL 350 MG/ML 100 ML INFUS..BTL IV (09:18)
[2023-08-05 08:01] LABS: Creatinine POC 0.5 mg/dL (0.5-1.4); GFR POC 60
== END 2023-08-04 08:12 | disposition home or self-care (01) ==
LOC: HO.CT 08:11
PROVIDERS: PCP Internal Medicine; Visit Provider Internal Medicine Nephrology
DX: Q61.9 Cystic kidney disease, unspecified (principal)
CPT/HCPCS: 74170; 82565; Q9967

== ENCOUNTER 2023-08-28 10:14 | Outpatient (REF) | payer OTHER, SELFPAY ==
[2023-08-28 10:35] LABS: MANUAL DIFF FLAG NO
[2023-08-28 11:05] LABS: Basophils Percent Auto 0.5 % (0-2); Eosinophils Absolute Auto 0.1 X10*3/uL (0.0-0.4); Eosinophils Percent Auto 1.2 % (0-4); Hematocrit 43.2 % (37.0-47.0); Hemoglobin 13.9 g/dl (12.0-16.0); Imm Gran Abs Auto 0.02 X10*3/uL (0.00-0.03); Imm Gran Pct Auto 0.3 % (0.0-0.4); Lymphocytes Absolute Auto 1.5 X10*3/uL (1.2-4.9); Lymphocytes Percent Auto 25.6 % (20-40); Mean Corpuscular HGB Conc 32.2 g/dl (31.0-35.0); Mean Corpuscular Hemoglobin 26.7 pg (27.0-33.0); Mean Corpuscular Volume 83.1 fL (80.0-98.0); Mean Platelet Volume 12.7 fL (9.4-12.3); Monocytes Absolute Auto 0.5 X10*3/uL (0.1-1.2); Monocytes Percent Auto 8.5 % (2-11); Neutrophils Absolute Auto 3.9 x10*3/uL (2.0-8.3); Neutrophils Percent Auto 63.9 % (45-73); Platelet Count 157 X10*3/uL (160-400); Red Cell Distribution Width 14.5 % (11.0-16.0)
== END 2023-08-28 10:15 | disposition home or self-care (01) ==
LOC: HO.LAB 10:14
PROVIDERS: PCP Registered Nurse; Visit Provider Internal Medicine Nephrology
DX: N18.2 Chronic kidney disease, stage 2 (mild) (principal); E55.9 Vitamin D deficiency, unspecified; D80.9 Immunodeficiency with predominantly antibody defects, unspecified
CPT/HCPCS: 36415; 80051; 81001; 82306; 82310; 82565; 82570; 82728; 83036; 83540; 84156; 84520; 84550; 85025

== ENCOUNTER 2023-11-24 11:20 | Outpatient (REF) | payer OTHER, SELFPAY ==
--- NOTE | ~2023-11-24 | MM_ITS ---
EXAMINATION: MM SCREENING DIGITAL BREAST TOMOSYNTHESIS, BILATERAL CLINICAL INFORMATION: Screening. Asymptomatic. COMPARISON: Mammography: 10/29/2022, 10/15/2022, 10/14/2021, 10/09/2020, 09/08/2019 TECHNIQUE: Digital breast tomosynthesis is performed in both the craniocaudal and mediolateral oblique views along with computer-aided detection (CAD). Synthesized 2D images are generated from the tomosynthesis. FINDINGS: There are scattered areas of fibroglandular density (ACR BI-RADS breast composition Category b). There are scattered benign calcifications bilaterally. There are no suspicious masses, suspicious grouped calcifications, or areas of architectural distortion in either breast. The parenchymal pattern is stable from prior exams. No skin or axillary abnormality. MM/MM tomosynthesis screening BI IMPRESSION: No mammographic evidence of malignancy. ASSESSMENT: BI-RADS BI-RADS 2 - Benign Findings RECOMMENDATION: Routine annual mammography screening. 1 year F/U This examination should not preclude the clinical evaluation of a suspicious palpable abnormality. This patient's information was entered into a reminder system with a target due date for their next mammogram.
== END 2023-11-24 11:21 | disposition home or self-care (01) ==
LOC: HO.MAMMO 11:20
PROVIDERS: PCP Registered Nurse; Visit Provider Registered Nurse
DX: Z12.31 Encounter for screening mammogram for malignant neoplasm of breast (principal)
CPT/HCPCS: 77063; 77067

== ENCOUNTER → 2023-11-24 12:00 | Outpatient (BNV) | payer OTHER, SELFPAY | PROVIDERS: PCP Registered Nurse; Visit Provider Radiology Diagnostic Radiology | DX: Z12.31 Encounter for screening mammogram for malignant neoplasm of breast (principal) | CPT/HCPCS: 77063; 77067 ==

== ENCOUNTER 2024-01-26 13:16 | Outpatient (AMB) | payer OTHER, SELFPAY ==
--- NOTE | 2024-01-26 13:24 | A.OFFVIS_ITS ---
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 No complaints. Last Pap/HPV was negative in 11/11 Last Mammogram was BI-RADS 2 in 12/16 Last Colonoscopy was done in 12/13, the recommendation was to repeat in 5 years [facility] Medical History Arthritis Renal cyst Dyslipidemia HTN (hypertension) Diabetes Surgical History H/O cervical biopsy History of esophagogastroduodenoscopy (EGD) H/O colonoscopy History of carpal tunnel release H/O cervical polypectomy History of History of bilateral tubal ligation Family History Mother Diabetes Hypertension CVD (cardiovascular disease) Father Hypertension Prostate cancer Sister Lupus Skin cancer Sister Colon cancer Social History Alcohol intake: never Patient Tobacco Use Status: Never used Tobacco Second Hand Smoke Exposure: No Patient : No Sexual orientation: Straight/Heterosexual Gender identity: Female Female Reproductive History Menstrual Age of Menarche: 12 control method: permanent sterilization Total pregnancies: 3 Full term: 1 Number of Living Children: 1 Ab induced: 1 Ab spontaneous: 1 Date of last pap smear: 11/13/20 (negative) Date of Mammogram: 11/24/23 Review of Systems Const All systems reviewed & are unremarkable except as noted in HPI and below Card Reports as per HPI Resp Reports as per HPI GI Reports as per HPI and Reports no additional complaints Reports as per HPI Physical Exam Vital Signs: Last Vital Signs BP 106/66 01/26/24 13:28 BMI result Body Mass Index 26.8 Const General: cooperative, healthy appearing and comfortable Chest Chest palpation & inspection: normal inspection of the chest and normal palpation of entire chest wall Breast/axilla inspection: normal inspection of the breasts and normal inspection of the axillae Breast/axilla palpation: normal palpation of the breasts, normal palpation of the axillae and no axillary lymphadenopathy Resp Effort & Inspection: normal respiratory effort Auscultation: clear to auscultation bilaterally Percussion: percussion normal Cardio Palpation: normal PMI Rate: regular rate Rhythm: regular rhythm Heart sounds: no murmurs and no rubs Peripheral pulses: Peripheral pulses 2+ throughout GI Inspection: Yes normal to inspection Palpation (GI): Soft to palpation, nontender, no guarding, not rigid and No hepatosplenomegaly present Percussion: Yes normal to percussion Auscultation: normal bowel sounds Rectal Exam - Female: deferred General: Yes bladder normal to palpation External Female Exam: No lesion Speculum Exam - Vagina: normal appearance of the vagina, normal palpation, normal vaginal discharge and not erythematous Speculum Exam - Cervix: normal appearance of the cervix and normal palpation Bimanual exam- vagina & uterus: normal bimanual exam, normal palpation, bladder normal to palpation, consistency normal, normal palpation and enlarged Bimanual Exam- Adnexa, other: normal adnexae, no masses and no tenderness Assessment & Plan Assessment & Plan (1) Well woman exam: Code(s): Z01.419 - Encounter for gynecological examination (general) (routine) without abnormal findings Plan: Co testing not indicated this year. Counseled the patient about the recommended dietary allowance of 1200 mg of Calcium & 600 IU of vitamin D. Instructions given the patient to schedule her next screening Mammogram in 12/17. The patient was instructed to perform monthly self-breast exams and schedule annual exam in a year. All questions answered and the patient verbalized understanding. (2) Enlarged uterus: Code(s): N85.2 - Hypertrophy of uterus Plan: Discussed with the patient the finding on pelvic exam, enlarged uterus. Will order pelvic ultrasound. Instructions given the patient to schedule ultrasound follow-up appointment. All questions answered, the patient verbalized understan robert Coding Level of Care Code Est Pt Prev Care 40-64y(86675) Diagnoses Well woman exam Z01.419 Enlarged uterus N85.2
[2024-01-26 13:28] VITALS: BP 106/66; BMI 26.8
== END 2024-01-26 13:54 | disposition home or self-care (01) ==
LOC: HO.HWS 13:16
PROVIDERS: PCP Registered Nurse; Visit Provider Obstetrics & Gynecology
DX: Z01.419 Encounter for gynecological examination (general) (routine) without abnormal findings (principal); N85.2 Hypertrophy of uterus
CPT/HCPCS: 99396

== ENCOUNTER → 2024-01-26 13:16 | Outpatient (BNVA) | payer OTHER, SELFPAY | PROVIDERS: PCP Registered Nurse; Visit Provider Obstetrics & Gynecology | DX: Z01.419 Encounter for gynecological examination (general) (routine) without abnormal findings (principal); N85.2 Hypertrophy of uterus | CPT/HCPCS: 99396 ==

== ENCOUNTER 2024-02-11 10:28 | Outpatient (REF) | payer OTHER, SELFPAY ==
--- NOTE | ~2024-02-11 | US_ITS ---
EXAMINATION: US PELVIS CLINICAL INFORMATION: Uterine hypertrophy; postmenopausal patient. COMPARISON: Pelvic ultrasound dated 11/08/2019. TECHNIQUE: Ultrasound of the pelvis is performed using both transabdominal and transvaginal transducers along with Doppler. Transvaginal imaging is performed due to inadequate visualization transabdominally. FINDINGS: Uterus: The uterus is anteverted and measures 6.3 x 3.6 x 3.6 cm. The double wall endometrial thickness is 5 mm. The uterus is smooth in contour and has normal myometrial echogenicity. Within the posterior upper body, a 1.3 x 1.0 x 1.3 cm heterogeneously hypoechoic fibroid is seen. Previously, this measured 1.4 x 1.2 x 1.2 cm. Adnexa: Both ovaries are visualized. There is normal color flow to the adnexa. There is no ovarian torsion. There is no pelvic ascites or fluid collection. Right ovary measures 1.6 x 1.2 x 2.0 cm, volume 2.0 mL. Left ovary measures 1.9 x 1.2 x 1.9 cm, volume 2.3 mL. US/US pelvic and transvaginal IMPRESSION: A small uterine fibroid is redemonstrated, as detailed. The examination is otherwise unremarkable.
== END 2024-02-11 10:29 | disposition home or self-care (01) ==
LOC: HO.US 10:28
PROVIDERS: PCP Registered Nurse; Visit Provider Obstetrics & Gynecology
DX: N85.2 Hypertrophy of uterus (principal)
CPT/HCPCS: 76830; 76856

== ENCOUNTER 2024-02-26 08:02 | Outpatient (REF) | payer OTHER, SELFPAY ==
[2024-02-26 11:25] LABS: Basophils Absolute Auto 0.1 X10*3/uL (0.0-0.2); Basophils Percent Auto 1.1 % (0-2); Eosinophils Absolute Auto 1.3 X10*3/uL (0.0-0.4); Eosinophils Percent Auto 20.1 % (0-4); Hemoglobin 14.2 g/dl (12.0-16.0); Imm Gran Abs Auto 0.01 X10*3/uL (0.00-0.03); Imm Gran Pct Auto 0.2 % (0.0-0.4); Lymphocytes Absolute Auto 2.1 X10*3/uL (1.2-4.9); Lymphocytes Percent Auto 31.6 % (20-40); MANUAL DIFF FLAG SCAN; Mean Corpuscular HGB Conc 31.6 g/dl (31.0-35.0); Mean Corpuscular Hemoglobin 26.8 pg (27.0-33.0); Mean Corpuscular Volume 85.1 fL (80.0-98.0); Monocytes Absolute Auto 0.5 X10*3/uL (0.1-1.2); Monocytes Percent Auto 7.3 % (2-11); Neutrophils Absolute Auto 2.6 x10*3/uL (2.0-8.3); Neutrophils Percent Auto 39.7 % (45-73); Platelet Count 141 X10*3/uL (160-400); Red Blood Count 5.29 X10*6/uL (4.20-5.50); Red Cell Distribution Width 14.7 % (11.0-16.0); SCAN SMEAR FLAG 1; White Blood Count 6.5 X10*3/uL (4.8-10.8)
[2024-02-26 11:43] LABS: Alanine Aminotransferase 18 U/L (0-31); Albumin Level 4.6 g/dL (3.5-5.0); Alkaline Phosphatase 68 U/L (39-117); Anion Gap 13 (12-20); Aspartate Amino Transferase 20 U/L (5-31); Bilirubin Total 0.4 mg/dL (0.0-1.0); Blood Urea Nitrogen 20 mg/dL (9-16); Calcium 9.8 mg/dL (8.4-10.2); Carbon Dioxide 28 mmol/L (22-29); Chloride 105 mmol/L (96-108); Cholesterol 152 mg/dL (<200); Estimated Glomerular Filt Rate > 60; Glucose Random 130 mg/dL (60-115); HDL Cholesterol 58 mg/dL (>40); LDL Cholesterol Calculated 81 mg/dL (<100); Potassium 4.9 mmol/L (3.3-5.1); Sodium 141 mmol/L (135-145); Triglycerides 68 mg/dL (<150)
[2024-02-26 11:55] LABS: HIV AB/AG Nonreactive (Nonreactive); HIV Num 1 0.05 S/CO (0.00-0.99)
[2024-02-26 11:57] LABS: SLIDE REVIEW VERIFIED
[2024-02-26 11:59] LABS: TSH reflex Free T4 2.89 uIU/mL (0.32-4.0)
[2024-02-26 13:09] LABS: Microalbum/Creatinine Ratio Ur 16.6 ug/mg cr (<30)
[2024-02-29 12:54] LABS: RPR Rapid Plasma Reagin NON-REACTIVE (NON-REACTIVE)
[2024-02-29 14:48] LABS: HCV Log PCR <1.18 NOT DETECTED Log IU/mL (NOT DETECTED); HepC Viral Load <15 NOT DETECTED IU/mL (NOT DETECTED)
== END 2024-02-26 08:03 | disposition home or self-care (01) ==
LOC: HO.HHCL 08:02
PROVIDERS: Visit Provider Registered Nurse
DX: Z00.00 Encounter for general adult medical examination without abnormal findings (principal); Z11.3 Encounter for screening for infections with a predominantly sexual mode of transmission; Z11.59 Encounter for screening for other viral diseases; Z13.220 Encounter for screening for lipoid disorders; Z13.29 Encounter for screening for other suspected endocrine disorder
CPT/HCPCS: 36415; 80053; 80061; 82043; 82570; 84443; 85025; 86592; 87389; 87522

== ENCOUNTER 2024-03-02 10:01 | Outpatient (REF) | payer OTHER, SELFPAY ==
--- NOTE | ~2024-03-02 | MM_ITS ---
EXAMINATION: BONE DENSITOMETRY CLINICAL INDICATION: Screening. COMPARISON: Baseline BD dated 10/02/2009. TECHNIQUE: Using a [employer] DXA System (software version: 13.1) manufactured by [employer], dual-energy x-ray absorptiometry was performed of the lumbar spine and left hip. The images are of good technical quality. Summary results are attached. FINDINGS: LEFT FEMUR, NECK: Current: BMD 0.841 g/cm2, Z-score 0.0, T-score -1.4, osteopenia. Baseline: BMD 0.937 g/cm2. LEFT FEMUR, TOTAL: Current: BMD 1.015 g/cm2, Z-score 1.3, T-score 0.1, normal, 7.7% decrease from baseline (<5% change is not significant). Baseline: BMD 1.100 g/cm2. AP SPINE L1-L4: Current: BMD 1.272 g/cm2, Z-score 2.4, T-score 0.8, normal, 3.1% decrease from baseline (<5% change is not significant). Baseline: BMD 1.313 g/cm2. IDENTIFIED RISK FACTORS: Early menopause, renal, secondary osteoporosis. HISTORY OF FRACTURE: None listed. MEDICATIONS: Calcium, vitamin D. MM/XR DEXA axial skeleton IMPRESSION: 1. DIAGNOSIS: Osteopenia based on the lowest T-score value of -1.4 in the femoral neck applying World Health Organization criteria. 2. 10-YEAR FRACTURE RISK PREDICTION, FRAX: Major osteoporotic fracture (clinical spine, forearm, hip or shoulder) 4.8%. Hip fracture 0.5%. 3. Treatment Recommendations: NOF guidelines recommend consideration for treatment in postmenopausal women and men age 50 and older presenting with the following: -A hip or vertebral (clinical or morphometric) fracture. -T-score less than or equal to -2.5 at the femoral neck or spine after appropriate evaluation to exclude secondary causes. -Low bone mass at the hip or spine and a 10-year fracture probability by FRAX of greater than or equal to 3% for hip fracture or greater than or equal to 20% for major osteoporotic fracture based on the [place] adapted WHO algorithm. 4. Other Recommendations: All treatment decisions require clinical judgment and consideration of individual patient factors, including patient preferences, comorbidities, previous drug use, risk factors not captured in the FRAX model (e.g. frailty, falls, vitamin D deficiency, increased bone turnover, interval significant decline in bone density) and possible under or overestimation of fracture risk by FRAX. Additional medical evaluation for secondary cause of low bone mineral density may be appropriate. FUTURE SCAN RECOMMENDATION: People with diagnosed cases of osteoporosis or at high risk for fracture should have regular bone mineral density tests. For patients eligible for Medicare, routine testing is allowed once every 2 years. The testing frequency can be increased to one year for patients who have rapidly progressing disease, those who are receiving or discontinuing medical therapy to restore bone mass, or have additional risk factors.
== END 2024-03-02 10:02 | disposition home or self-care (01) ==
LOC: HO.MAMMO 10:01
PROVIDERS: PCP Registered Nurse; Visit Provider Registered Nurse
DX: Z13.820 Encounter for screening for osteoporosis (principal); Z78.0 Asymptomatic menopausal state
CPT/HCPCS: 77080

== ENCOUNTER 2024-03-09 08:36 | Outpatient (AMB) | payer OTHER, SELFPAY ==
--- NOTE | 2024-03-09 09:01 | MHC.OFFVIS ---
Intake Vital Signs 03/09/24 09:03 Height 5 ft 1 in Weight 141 lb 1.533 oz BMI 26.7 BP 110/74 Intake Visit Reasons: ultra sound follow up Community Chest Officer Required: Yes Community Chest Officer Language: Mold Yard Supervisor Name: Elizabeth SANCHEZ Accompanied by: Self / Same As Patient Allergies No Known Allergies Allergy (Verified 03/09/24 09:03) HPI HPI Comments History of Present Illness Details Presenting for ultrasound follow-up with no complaints, no pelvic pain/pressure or vaginal bleeding . Pelvic ultrasound showed the following: Uterus: The uterus is anteverted and measures 6.3 x 3.6 x 3.6 cm. The double wall endometrial thickness is 5 mm. The uterus is smooth in contour and has normal myometrial echogenicity. Within the posterior upper body, a 1.3 x 1.0 x 1.3 cm heterogeneously hypoechoic fibroid is seen. Previously, this measured 1.4 x 1.2 x 1.2 cm. Adnexa: Both ovaries are visualized. There is normal color flow to the adnexa. There is no ovarian torsion. There is no pelvic ascites or fluid collection. Right ovary measures 1.6 x 1.2 x 2.0 cm, volume 2.0 mL. Left ovary measures 1.9 x 1.2 x 1.9 cm, volume 2.3 mL. [facility] Medical History Arthritis Renal cyst Dyslipidemia HTN (hypertension) Diabetes Surgical History H/O cervical biopsy History of esophagogastroduodenoscopy (EGD) H/O colonoscopy History of carpal tunnel release H/O cervical polypectomy History of History of bilateral tubal ligation Family History Mother Diabetes Hypertension CVD (cardiovascular disease) Father Hypertension Prostate cancer Sister Lupus Skin cancer Sister Colon cancer Social History Alcohol intake: never Patient Tobacco Use Status: Never used Tobacco Second Hand Smoke Exposure: No Sexual orientation: Straight/Heterosexual Gender identity: Female Female Reproductive History Menstrual Age of Menarche: 12 Review of Systems Const All systems reviewed & are unremarkable except as noted in HPI and below Reports as per HPI and Reports no additional complaints GI Reports no additional complaints Reports no additional complaints Physical Exam Vital Signs: Last Vital Signs BP 110/74 03/09/24 09:03 BMI result Body Mass Index 26.7 Assessment & Plan Assessment & Plan (1) Myoma: Code(s): D21.9 - Benign neoplasm of connective and other soft tissue, unspecified Plan: Discussed with the patient the findings on pelvic ultrasound & the risk of myosarcoma; discussed with the patient the options of treatment including expectant management versus hysterectomy; the pros and cons, risks benefits of each approach were discussed with the patient including the fact that in cases of myosarcoma, surgical treatment can lead to early diagnosis and positively affects the prognosis; after further discussion, the patient decided to proceed with expectant management. Will repeat pelvic ultrasound periodically. Instructions given to patient to call in case any of the following occurs: pressure symptoms, abnormal uterine bleeding, pelvic pain; and to schedule a future office follow-up appointment for reassessment and to order a repeat ultrasound . All questions answered, the patient verbalized understanding and agreed with the plan . Coding Level of Care Code Est Pt Level 3 (03959) Diagnoses Myoma D21.9
[2024-03-09 09:03] VITALS: BP 110/74; BMI 26.7
== END 2024-03-09 11:04 | disposition home or self-care (01) ==
LOC: HO.HWS 08:36
PROVIDERS: PCP Registered Nurse; Visit Provider Obstetrics & Gynecology
DX: D21.9 Benign neoplasm of connective and other soft tissue, unspecified (principal)
CPT/HCPCS: 99213

== ENCOUNTER → 2024-03-09 08:36 | Outpatient (BNVA) | payer OTHER, SELFPAY | PROVIDERS: PCP Registered Nurse; Visit Provider Obstetrics & Gynecology | DX: D21.9 Benign neoplasm of connective and other soft tissue, unspecified (principal) | CPT/HCPCS: 99212 ==

== ENCOUNTER 2024-03-10 10:42 | Outpatient (REF) | payer OTHER, SELFPAY ==
[2024-03-10 11:44] LABS: INTERNATIONAL NORM RATIO 0.9 (0.9-1.1); Prothrombin Time 11.4 SEC (11.1-13.3)
[2024-03-10 11:46] LABS: Basophils Absolute Auto 0.1 X10*3/uL (0.0-0.2); Eosinophils Absolute Auto 0.5 X10*3/uL (0.0-0.4); Eosinophils Percent Auto 8.1 % (0-4); Hematocrit 44.2 % (37.0-47.0); Imm Gran Abs Auto 0.01 X10*3/uL (0.00-0.03); Imm Gran Pct Auto 0.2 % (0.0-0.4); Lymphocytes Absolute Auto 1.6 X10*3/uL (1.2-4.9); Lymphocytes Percent Auto 27.9 % (20-40); MANUAL DIFF FLAG SCAN; Mean Corpuscular HGB Conc 31.7 g/dl (31.0-35.0); Mean Corpuscular Hemoglobin 26.8 pg (27.0-33.0); Mean Corpuscular Volume 84.5 fL (80.0-98.0); Monocytes Absolute Auto 0.5 X10*3/uL (0.1-1.2); Monocytes Percent Auto 8.3 % (2-11); Neutrophils Absolute Auto 3.2 x10*3/uL (2.0-8.3); Neutrophils Percent Auto 54.5 % (45-73); PLT CLUMP 1; Red Blood Count 5.23 X10*6/uL (4.20-5.50); Red Cell Distribution Width 14.6 % (11.0-16.0); SCAN SMEAR FLAG 1
[2024-03-10 11:47] LABS: White Blood Count 5.8 X10*3/uL (4.8-10.8)
[2024-03-10 12:39] LABS: Mean Platelet Volume 13.8 fL (9.4-12.3); Platelet Count 160 X10*3/uL (160-400)
[2024-03-10 12:40] LABS: SLIDE REVIEW VERIFIED
== END 2024-03-10 10:43 | disposition home or self-care (01) ==
LOC: HO.HHCL 10:42
PROVIDERS: Visit Provider Registered Nurse
DX: D69.6 Thrombocytopenia, unspecified (principal)
CPT/HCPCS: 36415; 85025; 85610

== ENCOUNTER 2024-04-14 13:57 | Outpatient (AMB) | payer MEDICARE, SELFPAY ==
--- NOTE | 2024-04-14 14:20 | MHC.OFFVIS ---
Vital Signs 04/14/24 14:25 Height 5 ft 1 in Weight 143 lb 11.862 oz BMI 27.2 BP 138/62 Blood Pressure Location Rt brachial Position Sitting Pulse 111 H Pulse Oximetry (%) 97 Intake Visit Reasons: osteoarthritis Intake Note: Patient last seen by Nathalie Smith 04/21/23 presents today for 1 year follow up. Patient reports worsening joint pains, mainly at the elbows. She would like to discuss the use of Sulindac today. Logger Required: Yes Logger Language: Enterprise Architect Manager Name: Georgie [id number] Information Interpreted: clinical only Allergies No Known Allergies Allergy (Verified 04/14/24 14:21) Medication List - Last Reconciled 04/14/24 by Luis Vargas MD alcohol swabs pad topical BID blood sugar diagnostic As directed cetirizine 10 mg PO DAILY cholecalciferol (vitamin D3) 25 mcg PO QAM empagliflozin (Jardiance) 10 mg PO DAILY gabapentin 100 mg PO BEDTIME ketotifen fumarate 0.025%(0.035%) (Eye Itch Relief) 1 drp ophthalmic (eye) BID PRN lancets As directed losartan 25 mg PO DAILY metformin 1,000 mg PO BID simvastatin 40 mg PO BEDTIME sulindac 200 mg PO DAILY PRN venlafaxine ER 37.5 mg PO QAM HPI Comments Details: 63-year-old female with generalized osteoarthritis returns for follow-up. She was last seen by Paula Smith 03/2023. She states that recently she has been having bilateral elbow pain. She does not recall any increased activity except for doing the regular housework. She takes sulindac daily. Was told by another provider that swelling that can have long-term side effects and she would like to reduce or stop it PFSH Medical History Arthritis Renal cyst Dyslipidemia HTN (hypertension) Diabetes Surgical History H/O cervical biopsy History of esophagogastroduodenoscopy (EGD) H/O colonoscopy History of carpal tunnel release H/O cervical polypectomy History of History of bilateral tubal ligation Family History Mother Diabetes Hypertension CVD (cardiovascular disease) Father Hypertension Prostate cancer Sister Lupus Skin cancer Sister Colon cancer Social History Alcohol intake: never Patient Tobacco Use Status: Never used Tobacco Second Hand Smoke Exposure: No Sexual orientation: Straight/Heterosexual Gender identity: Female Female Reproductive History Menstrual Age of Menarche: 12 Review of [place] [facility] [place]gias Physical Exam Vital Signs: Last Vital Signs Pulse 111 H 04/14/24 14:25 BP 138/62 04/14/24 14:25 Pulse Ox 97 04/14/24 14:25 BMI result Body Mass Index 27.2 Const General: cooperative, healthy appearing and comfortable Nutritional Appearance: overweight Orientation/consciousness: patient oriented x3 Limitations: no limitations HEENT Head: Yes normocephalic and Yes atraumatic Mouth: moist mucous membranes Resp Effort & Inspection: normal respiratory effort and able to speak in complete sentences Auscultation: clear to auscultation bilaterally Cardio Rate: regular rate Rhythm: regular rhythm Skin General skin exam: no rashes or lesions noted Neuro General: patient oriented x3 Extrem Other: Osteoarthritic changes of both hands with no active synovitis Significant deformity and degeneration of bilateral 5th DIP joints. Some shortening of left 5th finger. (I reviewed patient's hand x-ray from 2019, there is no osteolysis) Mild tenderness upon palpation of the common flexor origin at the medial epicondyle bilaterally with positive resisted wrist flexion test bilaterally Assessment & Plan Assessment & Plan (1) Primary osteoarthritis involving multiple joints: Code(s): M89.49 - Other hypertrophic osteoarthropathy, multiple sites Category: Medical Plan: This is a 63-year-old female who presents for evaluation of generalized osteoarthritis. I do not see any active synovitis on exam. Patient takes sulindac regularly. Patient is aware of risks of long-term side effects of NSAIDs and would like to reduce her sulindac dose. Advised patient to try to substitute sulindac with Tylenol as much as possible. Apply OTC Voltaren gel on affected joints. Use sulindac only as needed. Follow-up with PCP (2) Medial epicondylitis of both elbows: Code(s): M77.01 - Medial epicondylitis, right elbow; M77.02 - Medial epicondylitis, left elbow Category: Medical Plan: Referred to occupational therapy Plan I spent 30 minutes reviewing patient's chart, evaluating patient, placing orders, counseling patient and documenting in the chart Orders: Orders OT Evaluation and Treatment Today M77.01 - Medial epicondylitis, right elbow, M77.02 - Medial epicondylitis, left elbow Coding Level of Care Code Est Pt Level 4 (58100) Diagnoses Primary osteoarthritis involving multiple joints M89.49 Medial epicondylitis of both elbows M77.01; M77.02
[2024-04-14 14:25] VITALS: BP 138/62; PULSE 111; O2SAT 97; BMI 27.2
== END 2024-04-14 15:26 | disposition home or self-care (01) ==
LOC: HO.RHE 13:57
PROVIDERS: PCP Registered Nurse; Visit Provider Student in an Organized Health Care Education/Training Program
DX: M89.49 Other hypertrophic osteoarthropathy, multiple sites (principal); M77.01 Medial epicondylitis, right elbow; M77.02 Medial epicondylitis, left elbow
CPT/HCPCS: 99214

== ENCOUNTER → 2024-04-14 13:57 | Outpatient (BNVA) | payer OTHER, SELFPAY | PROVIDERS: PCP Registered Nurse; Visit Provider Student in an Organized Health Care Education/Training Program | DX: M89.49 Other hypertrophic osteoarthropathy, multiple sites (principal); M77.01 Medial epicondylitis, right elbow; M77.02 Medial epicondylitis, left elbow | CPT/HCPCS: 99212 ==

== ENCOUNTER 2024-05-30 11:21 | Outpatient (REF) | payer OTHER, SELFPAY ==
--- NOTE | ~2024-05-30 | US_ITS ---
EXAMINATION: US RETROPERITONEAL LIMITED (RENAL ONLY) CLINICAL INFORMATION: Cyst of kidney, acquired. COMPARISON: CT abdomen 08/04/2023. MR kidney 04/24/2023. Ultrasound abdomen 06/08/2018. Ultrasound kidneys 09/23/2017. TECHNIQUE: Real-time imaging of the kidneys. Limited visualization due to bowel gas. FINDINGS: RIGHT KIDNEY: 12.6 x 5.4 x 5.6 cm (SAG x AP x TRV). No hydronephrosis. No renal calculi. Renal cortical thickness is normal. Limited visualization. A 7.5 x 7.2 x 7.4 cm right renal upper pole cyst with thin septations; measured 7 x 5.5 x 5.5 cm on MR of 04/24/2023 and was classified as Bosniak II. Ultrasound of 06/08/2017 demonstrated a 4.8 x 4.9 x 4.6 cm cyst. LEFT KIDNEY: 10.9 x 6.1 x 5.1 cm (SAG x AP x TRV). No hydronephrosis. No renal calculi. Renal cortical thickness is normal. Limited visualization. A 1.4 x 1.0 x 1.3 cm left renal lower pole cyst with possible mural echogenic foci characteristic of calcification is stable in size compared with ultrasound of 06/08/2018. 04/24/2023 MR demonstrated a 1 cm left lower pole Bosniak I cyst. US/US renal BI IMPRESSION: 1. A 7.5 x 7.2 x 7.4 cm right renal upper pole cyst with septations measured 7 x 5.5 x 5.5 cm on MR of 04/24/2023 and was classified as Bosniak II. Ultrasound of 06/08/2017 demonstrated a 4.8 x 4.9 x 4.6 cm cyst. 2. A 1.4 cm left renal lower pole cyst with possible mural echogenic foci characteristic of calcification is stable in size compared with ultrasound of 06/08/2018. 04/24/2023 MR demonstrated a 1 cm left lower pole Bosniak I cyst. This study was presented today June 14, 2024 for interpretation. Stat results provided at this time as requested by referring provider.
== END 2024-05-30 11:22 | disposition home or self-care (01) ==
LOC: HO.US 11:21
PROVIDERS: PCP Registered Nurse; Visit Provider Nurse Practitioner Family
DX: N28.1 Cyst of kidney, acquired (principal)
CPT/HCPCS: 76775

== ENCOUNTER 2024-06-14 09:35 | Outpatient (AMB) | payer OTHER, SELFPAY ==
--- NOTE | 2024-06-14 09:35 | A.OFFVIS_ITS ---
Intake Visit Reasons: 1y/US(set) Intake Note: Patient presents today for follow up on: Renal Cyst and Ultrasound Results Imaging Completed: 05/30/24 Urology Medications: none Blood Thinner: none Tube Sorter Required: Yes Tube Sorter Name: [id number] Accompanied by: Self / Same As Patient Allergies No Known Allergies Allergy (Verified 06/14/24 10:03) Medication List - Last Reconciled 06/14/24 by TISH Jerez-AFRICA alcohol swabs pad topical BID blood sugar diagnostic As directed cetirizine 10 mg PO DAILY cholecalciferol (vitamin D3) 25 mcg PO QAM empagliflozin (Jardiance) 10 mg PO DAILY fluticasone propionate 50 mcg/actuation sprays intranasal gabapentin 100 mg PO BEDTIME ketotifen fumarate 0.025%(0.035%) (Eye Itch Relief) 1 drp ophthalmic (eye) BID PRN lancets As directed losartan 25 mg PO DAILY metformin 1,000 mg PO BID simvastatin 40 mg PO BEDTIME sulindac 200 mg PO DAILY PRN venlafaxine ER 37.5 mg PO QAM HPI Comments Details: Lauryn is a pleasant 62-year-old [place] Islander-speaking female patient of Dr. Chowdary. She has a past medical history of arthritis, diabetes, dyslipidemia, hypertension, and renal cyst. She presents to the office today for a follow up of her renal cysts. Recent renal imaging results reviewed with the patient today. Bilateral kidneys with no calculi or hydronephrosis noted. Right kidney with a 7.5 x 7.2 x 7.4 cm right renal upper pole cyst with thin septations; measured 7 x 5.5 x 5.5 cm on MR of 04/24/2023 and was classified as Bosniak II. Ultrasound of 06/08/2017 demonstrated a 4.8 x 4.9 x 4.6 cm cyst. Left kidney with a 1.4 x 1.0 x 1.3 cm left renal lower pole cyst with possible mural echogenic foci characteristic of calcification is stable in size compared with ultrasound of 06/08/2018. 04/24/2023 MR demonstrated a 1 cm left lower pole Bosniak I cyst. In discussion with the patient today she reports to be doing and feeling well. When asked patient denies any urological issues or concerns at th is time. She denies urinary urgency, urinary frequency, incontinence, nocturia, hematuria, dysuria, foul smelling urine, changes to urinary stream, flank pain, fever, and or chills. In office urianlysis results reviewed with the patient today. She is happy with her current voiding parameters. [facility] Medical History Arthritis Renal cyst Dyslipidemia HTN (hypertension) Diabetes Surgical History H/O cervical biopsy History of esophagogastroduodenoscopy (EGD) H/O colonoscopy History of carpal tunnel release H/O cervical polypectomy History of History of bilateral tubal ligation Family History Mother Diabetes Hypertension CVD (cardiovascular disease) Father Hypertension Prostate cancer Sister Lupus Skin cancer Sister Colon cancer Social History Alcohol intake: never Patient Tobacco Use Status: Never used Tobacco Second Hand Smoke Exposure: No Sexual orientation: Straight/Heterosexual Gender identity: Female Female Reproductive History Menstrual Age of Menarche: 12 Review of Systems Const All systems reviewed & are unremarkable except as noted in HPI and below Eyes Reports no additional complaints ENT Reports no additional complaints Card Reports as per HPI Resp Reports no additional complaints GI Reports no additional complaints Reports as per HPI Musc Reports as per HPI Neuro Reports no additional complaints Psych Reports no additional complaints Endo Reports as per HPI Rodriguez/Lymph Reports no additional complaints Aller/Immun Reports no additional complaints Physical Exam Const General: cooperative, healthy appearing, comfortable, no acute distress, well developed, alert and awake Orientation/consciousness: patient oriented x3 Limitations: no limitations HEENT Head: Yes normal to inspection, Yes normocephalic and Yes atraumatic Ears: hearing grossly normal bilaterally Eyes General: appearance normal, both eyes and all related structures Neck Neck: Yes normal visual inspection and Yes trachea midline Chest Chest palpation & inspection: normal inspection of the chest Resp Effort & Inspection: normal respiratory effort and able to speak in complete sentences Cardio Rate: regular rate GI Inspection: Yes normal to inspection General: Yes no CVA tenderness Back/Spine/Pelvis Back: no CVA tenderness Skin General skin exam: no rashes or lesions noted Neuro General: patient oriented x3 Extrem General: Yes normal to inspection Psych Appearance: grossly normal and well kempt Mental Status: mental status grossly normal Speech and movement: Normal speech and movement present and Clear speech present Affect: normal affect Attitude: cooperative Thought process: Normal thought process present Thought content: Normal thought content present Insight: Good insight present (Psych) Judgement: Good judgement present (Psych) Results AMB Urinalysis, Automated UA Leukoctes 0 Marleny/uL Last Edit by Sqordefren Cheney on 06/14/24 09:47 UA Nitrite Negative Last Edit by Sqor[employer]ren [employer] on 06/14/24 09:47 UA Urobilinogen 0.2 mg/dL Last Edit by [employer] on 06/14/24 09:47 UA Protein 0 mg/dL Last Edit by [employer] on 06/14/24 09:47 UA pH 6.0 Last Edit by Sqordefren [employer] on 06/14/24 09:47 UA Blood 0 Azael/uL Last Edit by [employer] on 06/14/24 09:47 UA Specific [place] 1.010 Last Edit by Sqordefren [employer] on 06/14/24 09:47 UA Ketone Negative Last Edit by [employer] on 06/14/24 09:47 UA Bilirubin 0 mg/dL Last Edit by [employer] on 06/14/24 09:47 UA Glucose 1000 mg/dL Last Edit by Sqordefren [employer] on 06/14/24 09:47 Results Reviewed Results Reviewed: Laboratory Last Values Urine pH (Auto) 6.0 06/14/24 09:46 Specific [place] (Auto) 1.010 06/14/24 09:46 Urine Protein (Auto) 0 mg/dL 06/14/24 09:46 Glucose (UA)(Auto) 1000 mg/dL 06/14/24 09:46 Urine Ketones (Auto) Negative 06/14/24 09:46 Urine Blood (Auto) 0 Azael/uL 06/14/24 09:46 Urine Nitrite (Auto) Negative 06/14/24 09:46 Urine Bilirubin (Auto) 0 mg/dL 06/14/24 09:46 Urine Urobilinogen (Auto) 0.2 mg/dL 06/14/24 09:46 Leukocyte Esterase (Auto) 0 Marleny/uL 06/14/24 09:46 Date of Service: 07/08/24 EXAMINATION: US RETROPERITONEAL LIMITED (RENAL ONLY) FINDINGS: RIGHT KIDNEY: 12.6 x 5.4 x 5.6 cm (SAG x AP x TRV). No hydronephrosis. No renal calculi. Renal cortical thickness is normal. Limited visualization. A 7.5 x 7.2 x 7.4 cm right renal upper pole cyst with thin septations; measured 7 x 5.5 x 5.5 cm on MR of 04/24/2023 and was classified as Bosniak II. Ultrasound of 06/08/2017 demonstrated a 4.8 x 4.9 x 4.6 cm cyst. LEFT KIDNEY: 10.9 x 6.1 x 5.1 cm (SAG x AP x TRV). No hydronephrosis. No renal calculi. Renal cortical thickness is normal. Limited visualization. A 1.4 x 1.0 x 1.3 cm left renal lower pole cyst with possible mural echogenic foci characteristic of calcification is stable in size compared with ultrasound of 06/08/2018. 04/24/2023 MR demonstrated a 1 cm left lower pole Bosniak I cyst. IMPRESSION: 1. A 7.5 x 7.2 x 7.4 cm right renal upper pole cyst with septations measured 7 x 5.5 x 5.5 cm on MR of 04/24/2023 and was classified as Bosniak II. Ultrasound of 06/08/2017 demonstrated a 4.8 x 4.9 x 4.6 cm cyst. 2. A 1.4 cm left renal lower pole cyst with possible mural echogenic foci characteristic of calcification is stable in size compared with ultrasound of 06/08/2018. 04/24/2023 MR demonstrated a 1 cm left lower pole Bosniak I cyst. This study was presented today June 14, 2024 for interpretation. Stat results provided at this time as requested by referring provider. Assessment & Plan Assessment & Plan (1) Complex renal cyst: Code(s): N28.1 - Cyst of kidney, acquired Category: Medical Plan In office urinalysis results reviewed with the patient today; as noted above. Recent renal ultrasound results reviewed with the patient today. Discussed at length renal cysts, classifications, and management. Patient denies any urological issues or concerns at this time. She reports be happy with current voiding parameters. Renal ultrasound in 1 year. Follow-up in 1 year with imaging to be completed prior; or sooner with any issues, concerns, and or questions. Orders: Orders US renal BI 1 Year N28.1 - Cyst of kidney, acquired AMB Urinalysis Automated Today Z13.9 - Encounter for screening, unspecified Patient Instructions: The patient had an opportunity to ask questions regarding the treatment plan. All questions were answered. Physical exam, labs, and imaging were discussed and reviewed in detail. As well as risks, benefits, and discussion of treatment choices. No major barriers to understanding were identified. The patient expressed understanding and agreement with the above treatment plan. The patient was made aware they should contact our office by phone for worsening of their current condition, the appearance of new symptoms, or with any questions or concerns. Compliance is encouraged with any medications and follow up testing that is ordered. It is a privilege to be allowed the opportunity to participate in? your urological care.? Again, if you have any questions or concerns If you have any questions or concerns please do not hesitate to contact me. The office is [phone]. This note is constructed using voice recognition software. While every effort has been made to ensure accuracy visual arts teacher errors may have been included. Yours sincerely, IVAN Jerez Coding Level of Care Code Est Pt Level 3 (07066) Diagnoses Complex renal cyst N28.1
== END 2024-06-14 10:04 | disposition home or self-care (01) ==
PROVIDERS: PCP Internal Medicine; Visit Provider Nurse Practitioner Family
DX: Z13.9 Encounter for screening, unspecified (principal); N28.1 Cyst of kidney, acquired
CPT/HCPCS: 99213

== ENCOUNTER → 2024-06-14 09:35 | Outpatient (BNVA) | payer OTHER, SELFPAY | PROVIDERS: PCP Internal Medicine; Visit Provider Nurse Practitioner Family | DX: N28.1 Cyst of kidney, acquired (principal) | CPT/HCPCS: 81003; 99212 ==

== ENCOUNTER 2024-08-29 14:54 | Outpatient (AMB) | payer OTHER, SELFPAY ==
--- NOTE | 2024-08-29 15:16 | A.OFFVIS_ITS ---
Vital Signs 08/29/24 15:21 Height 5 ft 1 in Weight 141 lb 15.643 oz BMI 26.8 BP 115/62 Blood Pressure Location Rt brachial Position Sitting Pulse 96 Pulse Source Pulse Oximeter Pulse Oximetry (%) 97 Oxygen Delivery Method Room Air Intake Visit Reasons: Osteoporosis/CM Intake Note: Patient presents for Osteoporosis. Intense pain in left elbow and there is bump. Senior Cytogenetic Technologist Required: Yes Senior Cytogenetic Technologist Language: Retirement Benefits Specialist Services: Senior Cytogenetic Technologist Present Senior Cytogenetic Technologist Name: jaquelin Bower Information Interpreted: non-clinical & clinical Allergies No Known Allergies Allergy (Verified 08/29/24 15:21) Medication List - Last Reconciled 08/29/24 by Luis Vargas MD alcohol swabs pad topical BID blood sugar diagnostic As directed cetirizine 10 mg PO DAILY cholecalciferol (vitamin D3) 25 mcg PO QAM empagliflozin (Jardiance) 10 mg PO DAILY fluticasone propionate 50 mcg/actuation sprays intranasal gabapentin 100 mg PO BEDTIME ketotifen fumarate 0.025%(0.035%) (Eye Itch Relief) 1 drp ophthalmic (eye) BID PRN lancets As directed losartan 25 mg PO DAILY metformin 1,000 mg PO BID simvastatin 40 mg PO BEDTIME sulindac 200 mg PO DAILY PRN venlafaxine ER 37.5 mg PO QAM HPI Comments Details: 64-year-old female with generalized osteoarthritis returns for follow-up. Last visit I referred her to occupational therapy for bilateral tennis elbow. She states that she did not have the time to go. Today she is complaining of pain in the inside of her left elbow associated with a palpable lump. [facility] Medical History Arthritis Renal cyst Dyslipidemia HTN (hypertension) Diabetes Surgical History H/O cervical biopsy History of esophagogastroduodenoscopy (EGD) H/O colonoscopy History of carpal tunnel release H/O cervical polypectomy History of History of bilateral tubal ligation Family History Mother Diabetes Hypertension CVD (cardiovascular disease) Father Hypertension Prostate cancer Sister Lupus Skin cancer Sister Colon cancer Social History Alcohol intake: never Patient Tobacco Use Status: Never used Tobacco Second Hand Smoke Exposure: No Sexual orientation: Straight/Heterosexual Gender identity: Female Female Reproductive History Menstrual Age of Menarche: 12 Review of Systems [facility] [place] Reports arthralgias Physical Exam Vital Signs: Last Vital Signs Pulse 96 08/29/24 15:21 BP 115/62 08/29/24 15:21 Pulse Ox 97 08/29/24 15:21 Oxygen Delivery Method Room Air 08/29/24 15:21 BMI result Body Mass Index 26.8 Const General: cooperative, healthy appearing and comfortable Nutritional Appearance: overweight Orientation/consciousness: patient oriented x3 Limitations: no limitations HEENT Head: Yes normocephalic and Yes atraumatic Mouth: moist mucous membranes Resp Effort & Inspection: normal respiratory effort and able to speak in complete sentences Skin General skin exam: no rashes or lesions noted Neuro General: patient oriented x3 Extrem Other: Osteoarthritic changes of both hands with no active synovitis Significant deformity and degeneration of bilateral 5th DIP joints. Some shortening of left 5th finger. (I reviewed patient's hand x-ray from 2019, there is no osteolysis) Left elbow: Mild tenderness upon palpation of the common flexor origin at the medial epicondyle Assessment & Plan Assessment & Plan (1) Left tennis elbow: Code(s): M77.12 - Lateral epicondylitis, left elbow Category: Medical Plan: Referred to OT. Follow-up with PCP Plan I spent 15 minutes reviewing patient's chart, evaluating patient, placing orders, counseling patient and documenting in the chart Coding Level of Care Code Est Pt Level 3 (74604) Diagnoses Left tennis elbow M77.12
[2024-08-29 15:21] VITALS: BP 115/62; PULSE 96; O2SAT 97; BMI 26.8
== END 2024-08-29 15:50 ==
PROVIDERS: PCP Internal Medicine; Visit Provider Student in an Organized Health Care Education/Training Program
DX: M77.12 Lateral epicondylitis, left elbow (principal)
CPT/HCPCS: 99213

== ENCOUNTER → 2024-08-29 14:54 | Outpatient (BNVA) | payer OTHER, SELFPAY | PROVIDERS: PCP Internal Medicine; Visit Provider Student in an Organized Health Care Education/Training Program | DX: M77.12 Lateral epicondylitis, left elbow (principal); M81.0 Age-related osteoporosis without current pathological fracture | CPT/HCPCS: 99212 ==

== ENCOUNTER 2024-09-12 08:09 | Outpatient (REF) | payer OTHER, SELFPAY ==
[2024-09-12 08:29] LABS: MANUAL DIFF FLAG NO
[2024-09-12 08:38] LABS: Basophils Percent Auto 0.7 % (0-2); Eosinophils Absolute Auto 0.1 X10*3/uL (0.0-0.4); Eosinophils Percent Auto 2.9 % (0-4); Hematocrit 42.7 % (37.0-47.0); Hemoglobin 13.4 g/dl (12.0-16.0); Imm Gran Abs Auto 0.01 X10*3/uL (0.00-0.03); Imm Gran Pct Auto 0.2 % (0.0-0.4); Lymphocytes Absolute Auto 1.5 X10*3/uL (1.2-4.9); Mean Corpuscular HGB Conc 31.4 g/dl (31.0-35.0); Mean Corpuscular Hemoglobin 26.3 pg (27.0-33.0); Mean Corpuscular Volume 83.7 fL (80.0-98.0); Mean Platelet Volume 12.6 fL (9.4-12.3); Monocytes Absolute Auto 0.4 X10*3/uL (0.1-1.2); Monocytes Percent Auto 8.8 % (2-11); Neutrophils Absolute Auto 2.5 x10*3/uL (2.0-8.3); Neutrophils Percent Auto 55.4 % (45-73); Platelet Count 151 X10*3/uL (160-400); Red Cell Distribution Width 14.4 % (11.0-16.0); White Blood Count 4.5 X10*3/uL (4.8-10.8)
[2024-09-12 09:29] LABS: Anion Gap 12 (12-20); Blood Urea Nitrogen 18 mg/dL (9-16); Calcium 9.8 mg/dL (8.4-10.2); Carbon Dioxide 29 mmol/L (22-29); Chloride 106 mmol/L (96-108); Estimated Glomerular Filt Rate > 60; Iron 72 mcg/dL (30-160); Percent Iron Saturation 20 % (15-50); Potassium 5.3 mmol/L (3.3-5.1); Sodium 142 mmol/L (135-145); Total Iron Binding Capacity 360 mcg/dL (228-428); Unsaturated Iron Binding 288 ug/dL; Uric Acid 2.9 mg/dL (2.4-5.7)
[2024-09-12 09:33] LABS: Estimated Average Glucose 177 mg/dL; Hemoglobin A1C 204.1728 umol/L; Hemoglobin A1c % 7.8 % (<6.0); Total Hemoglobin (HGBA1C) 3332.7086 umol/L
[2024-09-12 09:46] LABS: Vitamin D 25-OH Total 31.3 ng/mL (>30)
[2024-09-12 09:59] LABS: Parathyroid Hormone Intact 59.9 pg/mL (8.7-77.1)
[2024-09-12 10:17] LABS: Appearance Urine Clear; Color Urine Yellow; Glucose Urine UA >=1000 mg/dL (Negative); Leukocyte Esterase Urine Small (1+) (Negative); Nitrite Urine Negative (Negative); PH 5.5 (5.0-9.0); Specific Gravity - Urine >= 1.030 (1.005-1.025); UMIC TRIGGER UA YES; Urine Blood Negative (Negative); Urine Ketones Negative (Negative); Urine Protein Negative (Neg-Trace)
[2024-09-12 10:26] LABS: Bacteria Urine None Seen (None Seen); Hyaline Casts Urine 0-2 /LPF (0-2); RBC Urine 0-2 /HPF (0-2); Squamous Epithelial Cell Urine 0-2 /HPF (0-2); WBC Urine 21-50 /HPF (0-5)
[2024-09-12 10:55] LABS: Creatinine Urine 56.77 mg/dL; Total Protein Urine Random < 7 mg/dL (<12)
== END 2024-09-12 08:10 | disposition home or self-care (01) ==
LOC: HO.LAB 08:09
PROVIDERS: PCP Registered Nurse; Visit Provider Physician Assistant
DX: N18.2 Chronic kidney disease, stage 2 (mild) (principal); E55.9 Vitamin D deficiency, unspecified; D50.9 Iron deficiency anemia, unspecified; E11.9 Type 2 diabetes mellitus without complications
CPT/HCPCS: 36415; 80051; 81001; 81003; 82306; 82310; 82565; 82570; 83036; 83540; 83970; 84156; 84520; 84550; 85025

== ENCOUNTER 2024-10-31 09:02 | Outpatient (REF) | payer OTHER, SELFPAY | END 2024-10-31 09:03 | disposition home or self-care (01) | LOC: HO.US 09:02 | PROVIDERS: PCP Registered Nurse; Visit Provider Registered Nurse | DX: D69.6 Thrombocytopenia, unspecified (principal); M25.522 Pain in left elbow | CPT/HCPCS: 76700; 76882; 76981 ==

== ENCOUNTER → 2024-10-31 09:10 | Outpatient (BNV) | payer OTHER, SELFPAY | PROVIDERS: PCP Registered Nurse; Visit Provider Radiology Diagnostic Radiology | DX: R22.32 Localized swelling, mass and lump, left upper limb (principal) | CPT/HCPCS: 76700 ==

== ENCOUNTER 2024-11-25 11:43 | Outpatient (REF) | payer MEDICARE, SELFPAY ==
--- NOTE | ~2024-11-25 | MM_ITS ---
EXAMINATION: MM SCREENING DIGITAL BREAST TOMOSYNTHESIS, BILATERAL CLINICAL INFORMATION: Screening. Asymptomatic. COMPARISON: Mammography: Comparison is made with available priors TECHNIQUE: Digital breast mammography with tomosynthesis is performed in both the craniocaudal and mediolateral oblique views along with computer-aided detection (CAD). FINDINGS: There are scattered areas of fibroglandular density (ACR BI-RADS breast composition Category b). There are no significant masses, abnormal calcifications, or other abnormalities. MM/MM tomosynthesis screening BI IMPRESSION: No mammographic evidence of malignancy. ASSESSMENT: BI-RADS BI-RADS 1 - Negative RECOMMENDATION: Routine annual mammography screening. 1 year F/U This examination should not preclude the clinical evaluation of a suspicious palpable abnormality. This patient's information was entered into a reminder system with a target due date for their next mammogram. Electronically signed by: Steph Liang DO 12/04/2024 09:08 AM [place]
== END 2024-11-25 11:44 | disposition home or self-care (01) ==
LOC: HO.MAMMO 11:43
PROVIDERS: PCP Registered Nurse; Visit Provider Registered Nurse
DX: Z12.31 Encounter for screening mammogram for malignant neoplasm of breast (principal)
CPT/HCPCS: 77063; 77067

== ENCOUNTER → 2024-11-25 12:00 | Outpatient (BNV) | payer MEDICARE, SELFPAY | PROVIDERS: PCP Registered Nurse; Visit Provider Internal Medicine | DX: Z12.31 Encounter for screening mammogram for malignant neoplasm of breast (principal) | CPT/HCPCS: 77063; 77067 ==

== ENCOUNTER 2025-03-20 07:17 | Outpatient (REF) | payer MEDICARE, SELFPAY ==
--- OUTSIDE RECORDS SUMMARY | 2025-03-20 07:21 | XMS_ITS | Encounter Summary ---
Author Organization [facility] Address [address] [place] [address] Phone Care Team Providers Care Professional Services Consultant Name Role Phone Jodi Chowdary Primary Care Provider [phone] Encounter Details Date Type Department Care Team (Late Contact Info) Description 09/01/2023 Documentation Only [facility] - Ida SANCHEZ [address] [place] [phone] Christian Anthony MD [address] [place] [address] [place] [address] Social History Tobacco Use Types Packs/Day Years Used Date Smoking Tobacco: Never Alcohol Use Standard Drinks/Week Comments No 0 (1 standard drink = 0.6 oz pur e alcohol) Comments Unknown Sex and Gender Information Value Date Recorded Sex Assigned at Not on file Legal Sex Female 4:34 PM EST Gender Identity Not on file Sexual Orientation Not on file documented as of this encounter Plan of Treatment Upcoming Encounters Date Type Department Care Team (Late Contact Info) Description 03/28/2025 2:00 PM EDT Office Visit [facility] [address] [place] [address] Christian Anthony MD [address] [place] [address] [place] [address] documented as of this encounter Visit Diagnoses Not on filedocumented in this encounter Care Teams Professional Services Consultant Relationship Specialty Start Date End Date Jodi Chowdary FNP [address] [facility] [place] [address] PCP - General 09/27/24 documented as of this encounter
--- OUTSIDE RECORDS SUMMARY | 2025-03-20 07:21 | XMS_ITS | Encounter Summary ---
Author Organization [facility] Address [address] [place] [address] Phone Care Team Providers Care Surgical Supplies Sterilizer Name Role Phone Jodi Chowdary Primary Care Provider [phone] Encounter Details Date Type Department Care Team (Late Contact Info) Description 03/02/2023 Documentation Only [facility] [address] [place] [address] Christian Anthony MD [address] [place] [address] [place] [address] Social History Tobacco Use Types [...] Visit [facility] [address] [place] [address] Christian Anthony MD [address] [place] [address] [place] [address] documented as of this encounter Visit Diagnoses Not on filedocumented in this encounter Care Teams Surgical Supplies Sterilizer Relationship Specialty Start Date End Date Jodi Chowdary FNP [address] [facility] [place], [place] [phone] PCP - General 09/27/24 documented as of this encounter
--- OUTSIDE RECORDS SUMMARY | 2025-03-20 07:21 | XMS_ITS | Encounter Summary ---
Author Organization [facility] [place], Address [address] [place] [address] Phone Care Team Providers Care Department Of Mathematics Chair Name Role Phone Jodi Chowdary Primary Care Provider [phone] Encounter Details Date Type Department Care Team (Late Contact Info) Description 09/14/2024 Documentation Only [facility] - Ida Madrigal [address] [place] [address] Anuradha Montemayor [address] [place] [address] Social History Tobacco Use Types Packs/Day Years [...] Visit [facility] [place], [address] [facility] [facility] [facility] [place] [address] Christian Anthony MD [address] [facility] [place] [address] documented as of this encounter Visit Diagnoses Not on filedocumented in this encounter Care Teams Department Of Mathematics Chair Relationship Specialty Start Date End Date Jodi Chowdary FNP 230 [place], [place] [phone] PCP - General 09/27/24 documented as of this encounter
--- OUTSIDE RECORDS SUMMARY | 2025-03-20 07:21 | XMS_ITS | Encounter Summary ---
Author Organization [employer] Address [address] [facility] 7[address] [place] [address] Care Team Providers Care Clerical Aide Teacher Name Role Phone Leeanne Vargas MD Unavailable Luci Theodore NP Unavailable Bin Scanlon MD Unavailable Tylor Mathew MD Unavailable [phone] Jodi Chowdary Primary Care Provider [phone] Christian Anthony Unavailable Remington Chairez MD Unavailable Reason for Visit * Reason Comments Med Refill Encounter Details Date Type Department Care Team ([facility] st Contact Info) Description 12/21/2024 Refill [facility] CHC MED & PEDS 505 [place], [place] [phone] Jodi Chowdary FNP 505 [place], [place] [phone] Social History Tobacco Use Types Packs/Day Years Used Date Smoking Tobacco: Never Smokeless Tobacco: Never Alcohol Answer Date Recorded Frequency of Alcohol Consumption Not on file 02/17/2024 Average Number of Drinks Not on file 024 Frequency of Binge Drinking Not on file 01/22 Score 0 02/17/2024 Depression Answer Date Recorded Patient Health Questionnaire-9 Score 4 02/17/2024 Patient Health Questionnaire-9 Score 4 02/17/2024 Last PHQ-9: Questionnaire Data Not on file 0 02/17/2024 Housing Stability Answer Date Recorded What is your housing situation today? I have colin marcano 09/07/[address] you li ve. Do you have problems with any of the following? None of the above 09/07/2023 Food Insecurity Answer Date Recorded Within the past 12 months, y ou worried that your food would run out before you got money to buy more: Never True 09/07/2023 Within the past 12 months,th e food you bought just didn't last and you didn't have enough money to get more: Never True Transportation Answer Date Recorded In the past 12 months, has l ack of transportation kept you from medical appts, meetings, work or from getting things needed for daily living? No 09/07/2023 Utilities Answer Date Recorded In the past 12 months, has t he electric, gas, oil or water company threatened to shut off services in your home? No 09/07/2023 Depression Answer Date Recorded Patient Health Questionnaire-2 Score 2 02/17/2024 Comments Unknown Sex and Gender Information Value Date Recorded Sex Assigned at Female 09/22/2022 10:19 AM EDT Legal Sex Female 10:19 AM EDT Gender Identity Female 09/22/2022 10:19 AM EDT Sexual Orientation Straight 09/22/2022 10 :19 AM EDT documented as of this encounter Plan of Treatment Upcoming Encounters Date Type Department Care Team (Late st Contact Info) Description 04/19/2025 10:00 AM EDT Office Visit [facility] MEDICINE [address] [place] [address] Jodi Chowdary FNP [address] [place] [address] documented as of this encounter Visit Diagnoses Not on filedocumented in this encounter Additional Health Concerns Assessment Noted Time PHQ-9 Depression Total Score: 4 02/17/20 24 10:37 AM EDT documented as of this encounter Care Teams Clerical Aide Teacher Relationship Specialty Start Date End Date Jodi Chowdary FNP 230 [place] [address] PCP - General Family Medicine 09/28/24 Leeanne Vargas MD [address] [place] [address], [place] [address] Rheumatology 09/28/24 Luci Theodore NP [address] [place] [address] Urology 09/28/24 Bin Scanlon MD [address] [place] [address] [address] [place] [address] Obstetrics and Gynecology 09/28/24 Tylor Mathew MD [address] [place] [address] Ophthalmology 09/28/24 Christian Anthony [address] [place] [address] Nephrology 09/28/24 Remington Chairez MD [address] [place] [address] Dr [address] [place] [address] Neurology 09/28/24 Erwin Cortes Software Business AnalystSuperintendent Ammunition Storage 02/10/24 documented as of this encounter
--- OUTSIDE RECORDS SUMMARY | 2025-03-20 07:21 | XMS_ITS | Clinical Summary ---
Author Organization [facility] [place], Address [address] [place] [address] [place] [address] Phone Care Team Providers Care Fuel Buyer Name Role Phone Jodi Chowdary CREATIVE ENGAGEMENT DIRECTOR Primary Care Provider [phone] Allergies No known active allergies Medications acetaminophen (TYLENOL) 500 MG tablet Take by mouth every 6 (six) hours if needed for mild pain Active gabapentin (NEURONTIN) 100 MG capsule Take 100 mg by mouth 3 (three) times a day Active metFORMIN (GLUCOPHAGE) 1000 MG tablet Take 1,000 mg by mouth 2 (two) times a day with meals Active raNITIdine (ZANTAC) 300 MG tablet Take 300 mg by mouth every night Active simethicone (MYLICON) 80 MG chewable tablet Chew 80 mg every 6 (six) hours if needed for flatulence Active venlafaxine XR (EFFEXOR-XR) 37.5 MG 24 hr capsule Take 37.5 mg by mouth 1 (one) time each day Do not crush or chew. Active cetirizine (ZyrTEC) 10 MG tablet Take 10 mg by mouth 1 (one) time each day Active cholecalciferol (VITAMIN D-3) 25 MCG (1000 UT) tablet Take 1,000 Units by mouth 0 Active simvastatin (ZOCOR) 40 MG tablet Take 40 mg by mouth at bed time 0 Active Jardiance 10 MG tablet Take 1 tablet by mouth 2 Active losartan (COZAAR) 25 MG tablet 2 Active TRUEplus Lancets 33G misc TEST BLOOD SUGAR 3 TIMES A DAY 2 Active FREESTYLE LITE test strip TEST BLOOD SUGAR TWICE DAILY 2 Active Alcohol Swabs (SM Alcohol Prep) 70 % pads USE DIRECTED TWICE DAILY 2 Active Active Problems Problem Noted Date Diagnosed Date Simple renal cyst 09/29/2023 Renal disorder due to type 2 diabetes mellitus 0 02/10/2023 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 Benign essential hypertension 03/25/2021 Rheumatoid arthritis 03/25/2021 Hyperkalemia 10/08/2020 Chronic kidney disease stage 2 10/05/2020 Hyperlipidemia 10/05/2020 Type 2 diabetes mellitus 10/05/2020 Resolved Problems Problem Noted Date Diagnosed Date Resolved Date Multiple renal cysts 10/05/2020 021 Immunizations Immunization Administration Dates Next Due Hepatitis B 02/28/2016,02/20/2014,04/05/2008 Influenza Split 08/08/2013,10/07/2012 Influenza, Quadrivalent, Pre servative Free 09/10/2022,08/28/2021,08/06/2020,08/04,08/26/2019,07/30/2016 Influenza, Quadrivalent, Wit h Preservative 10/05/2018,08/13/2017,08/10/2015 Influenza, Unspecified 09/13/2014,2010,09/18/2010,08/06,09/08/2008 MMR 04/05/2008 Moderna SARS-COV-2 07/01/2022,,02/15/2021,01/18 Pneumococcal Conjugate Pcv 20 11/10/2022 Pneumococcal Polysaccharide 01/08/2011 SARS-CoV-2, Unspecified 09/12/2022 Td 01/08/2011,02/22/2008 Tdap 08/08/2013 Family History Medical History Relation Comments Cancer Father prostate Heart disease Father Kidney disease Father ESRD Dementia Mother Alzheimer's Diabetes Mother Cancer Sibling sister-ovarian Diabetes Sibling brothers and sis ters Hypertension Sibling brothers Relation Status Comments Father Mother Sibling Social History Tobacco Use Types Packs/Day Years Used Date Smoking Tobacco: Never Alcohol Use Standard Drinks/Week Comments No 0 (1 standard drink = 0.6 oz pur e alcohol) Comments Unknown Sex and Gender Information Value Date Recorded Sex Assigned at Not on file Legal Sex Female 4:34 PM EST Gender Identity Not on file Sexual Orientation Not on file Last Filed Vital Signs Vital Sign Reading Time Taken Comments Blood Pressure 118/65 05/09/2019 12:00 PM EDT Pulse 72 05/09/2019 12:00 PM EDT Temperature - - Respiratory Rate 16 05/09/2019 12:00 PM EDT Oxygen Saturation - - Inhaled Oxygen Concentration - - Weight 70.3 kg (155 lb) 05/09/2019 12:00 PM EDT Height 154.9 cm (5' 1 ) 05/09/2019 12:00 PM EDT Body Mass Index 29.29 05/09/2019 12:00 PM EDT Plan of Treatment Upcoming Encounters Date Type Department Care Team (Late st Contact Info) Description 03/28/2025 2:00 PM EDT Office Visit [facility] [place], [address] [facility] [place] [address] Christian Anthony MD [address] [facility] [place] [address] Health Maintenance Due Date Last Done Comments Breast Cancer Screening 1959 Colorectal Cancer Screening: Annual FOBT 2008 Colorectal Cancer Screening: Colonoscopy 2008 Colorectal Cancer Screening: Sigmoidoscopy 2008 Diabetes: Ophthalmology Exam 02/13/2020 Diabetes: Pedal Pulse Checked 02/13/2020 Diabetes: Sensory Foot Exam 02/13/2020 Diabetes: Visual Foot Exam 02/13/2020 Diabetes: Hemoglobin A1C 05/19/2024 02/17/2024, 01/21 Hepatitis B Vaccine Aged Out 02/28/2016, 02/20/2014, 04/05/2008 No longer eligible based on patient's age to complete this topic Pneumococcal Vaccine: 50+ Years Completed 11/10/2022, 01/08/2011 Pneumococcal Vaccine: Peds (0 to 5 Years) and At-Risk Patients (6 to 49 Years) Discontinued 11/10/2022, 01/08/2011 Influenza Vaccine Completed 08/18/2024, , 09/10/2022, Additional history exists Insurance [facility] ([id number]) [place] [id number] Care Teams Fuel Buyer Relationship Specialty Start Date End Date Jodi Chowdary FNP [address] [place] [address] PCP - General 09/27/24
--- OUTSIDE RECORDS SUMMARY | 2025-03-20 07:21 | XMS_ITS | Encounter Summary ---
Author Organization [facility] Address [address] [place] [address] Phone Care Team Providers Care Psychiatric Arnp Name Role Phone Jodi Chowdary Primary Care Provider [phone] Encounter Details Date Type Department Care Team (Late Contact Info) Description 02/10/2023 Documentation Only [facility] [address] [place] [address] Christian Anthony MD [address] [place] [address] [place] [address] Social History Tobacco Use Types [...] Visit [facility] [address] [place] [address] Christian Anthony MD [address] [place] [address] [place] [address] documented as of this encounter Visit Diagnoses Not on filedocumented in this encounter Care Teams Psychiatric Arnp Relationship Specialty Start Date End Date Jodi Chowdary FNP [address] [facility] [place], [place] [phone] PCP - General 09/27/24 documented as of this encounter
--- OUTSIDE RECORDS SUMMARY | 2025-03-20 07:21 | XMS_ITS | Encounter Summary ---
Author Organization [employer] Address [address] [place] [address] [address] Care Team Providers Care Splicing Technician Name Role Phone Jodi Chowdary Primary Care Provider Leeanne Vargas MD Unavailable Luci Theodore NP Unavailable Bin Scanlon MD Unavailable Tylor Mathew MD Unavailable [phone] Jodi Chowdary Primary Care Provider [phone] Christian Anthony Unavailable Remington Chairez MD Unavailable Encounter Details Date Type Department Care Team (Late st Contact Info) Description 12/22/2022 Orders Only [facility] CHC MED & PEDS 505 [place], [place] [phone] Jane Jansen LPN Social History Tobacco Use Types Packs/Day Years Used Date Smoking Tobacco: Never Assessed Comments Unknown Sex and Gender Information Value [...] Description 04/19/2025 10:00 AM EDT Office Visit [facility] MEDICINE 230 [place] [address] Jodi Chowdary FNP 505 [place], [place] [phone] documented as of this encounter Visit Diagnoses Not on filedocumented in this encounter Care Teams Splicing Technician Relationship Specialty Start Date End Date Jodi Chowdary FNP 230 [place] [address] PCP - General Family Medicine 07/19/22 09/27/24 Jodi Chowdary FNP [address] [place] [address] PCP - General Family Medicine 09/28/24 Leeanne Vargas MD [address] [facility] [address] [address] [place] [address] Rheumatology 09/28/24 Luci Theodore NP [address] [place] [address] Urology 09/28/24 Bin Scanlon MD [address] [facility] [address] [place] [address] Obstetrics and Gynecology 09/28/24 Tylor Mathew MD [address] [place] [address] Ophthalmology 09/28/24 Christian Anthony [address] [place] [address] Nephrology 09/28/24 Remnigton Chairez MD [address] [place] [address] [place] [address] Neurology 09/28/24 Erwin Cortes Pot FirerPatients Transporter 02/10/24 documented as of this encounter
--- OUTSIDE RECORDS SUMMARY | 2025-03-20 07:21 | XMS_ITS | Encounter Summary ---
Author Organization [facility] Address [address] [place] [address] Phone Care Team Providers Care Cloth Folder Machine Name Role Phone Jodi Chowdary Primary Care Provider [phone] Encounter Details Date Type Department Care Team (Late Contact Info) Description 02/06/2023 Documentation Only [facility] [address] [place] [address] Christian Anthony MD [address] [place] [address] [place] [address] Social History Tobacco Use Types [...] Visit [facility] [address] [place] [address] Christian Anthony MD [address] [place] [address] [place] [address] documented as of this encounter Visit Diagnoses Not on filedocumented in this encounter Care Teams Cloth Folder Machine Relationship Specialty Start Date End Date Jodi Chowdary FNP [address] [facility] [place], [place] [phone] PCP - General 09/27/24 documented as of this encounter
--- OUTSIDE RECORDS SUMMARY | 2025-03-20 07:21 | XMS_ITS | Encounter Summary ---
Author Organization [employer] Address [address] [facility] 7t [place] [address] Care Team Providers Care Volunteer Assistant Name Role Phone Leeanne Vargas MD Unavailable Luci Theodore NP Unavailable Bin Scanlon MD Unavailable Tylor Mathew MD Unavailable [phone] Jodi Chowdary Primary Care Provider Christian Anthony Unavailable Remington Chairez MD Unavailable Reason for Visit * Reason Comments Med Refill Encounter Details Date Type Department Care Team ([facility] st Contact Info) Description 10/24/2024 Refill [facility] MED & PEDS 505 [place] [address] Jodi Chowdary FNP 505 [place], [place] [phone] Social History Tobacco Use Types Packs/Day Years [...] Description 04/19/2025 10:00 AM EDT Office Visit [facility] MEDICINE 230 [place] [address] Jodi Chowdary FNP 505 [place] [address] documented as of this encounter Visit Diagnoses Not on filedocumented in this encounter Additional Health Concerns Assessment Noted Time PHQ-9 Depression Total Score: 4 02/17/20 24 10:37 AM EDT documented as of this encounter Care Teams Volunteer Assistant Relationship Specialty Start Date End Date Jodi Chowdary FNP 230 [place] [address] PCP - General Family Medicine 09/28/24 Leeanne Vargas MD [address] [place] [address], [place] [address] Rheumatology 09/28/24 Luci Theodore NP [address] [place] [address] Urology 09/28/24 Bin Scanlon MD [address] [place] [address] [address] [place] [address] Obstetrics and Gynecology 09/28/24 Tylor Mathew MD [address] [place] [address] Ophthalmology 09/28/24 Christian Anthony [address] [place] [phone] Nephrology 09/28/24 Remington Chairez MD [address] [place] [address] Dr [address] [place] [address] Neurology 09/28/24 Erwin Cortes Hide Cooking OperatorTelevision Producer 02/10/24 documented as of this encounter
--- OUTSIDE RECORDS SUMMARY | 2025-03-20 07:21 | XMS_ITS | Encounter Summary ---
Author Organization [employer] Address [address] [facility] 7t [place] [address] Care Team Providers Care Health Unit Supervisor Name Role Phone Leeanne Vargas MD Unavailable Luci Theodore NP Unavailable Bin Scanlon MD Unavailable Tylor Mathew MD Unavailable [phone] Jodi Chowdary Primary Care Provider Christian Anthony Unavailable Remington Chairez MD Unavailable Reason for Visit * Reason Comments Med Refill Encounter Details Date Type Department Care Team (Late st Contact Info) Description 03/15/2025 Refill [facility] MEDICINE 230 [place] [address] Jodi Chowdary FNP 505 [place] [address] Vitamin D deficiency Social History Tobacco Use Types Packs/Day Years Used Date Smoking Tobacco: Never Smokeless Tobacco: Never Alcohol Answer Date Recorded Frequency of Alcohol Consumption Not on file 02/17/2024 Average Number of Drinks Not on file 024 Frequency of Binge Drinking Not on file 01/22 Score 0 02/17/2024 Depression Answer Date Recorded Patient Health Questionnaire-9 Score 1 02/22/2025 Patient Health Questionnaire-9 Score 1 02/22/2025 Last PHQ-9: Questionnaire Data Not on file 0 02/22/2025 Housing Stability Answer Date Recorded What is [...] Answer Date Recorded Patient Health Questionnaire-2 Score 0 02/22/2025 Internet Access Answer Date Recorded Internet Access Q1 Yes 02/13/2025 Internet Access Q2 Not on file 02/13/2025 Comments Unknown Sex and Gender Information Value [...] Description 04/19/2025 10:00 AM EDT Office Visit [facility] MEDICINE 230 [place] [address] Jodi Chowdary FNP 505 [place] [address] documented as of this encounter Visit Diagnoses Diagnosis Vitamin D deficiency documented in this encounter Additional Health Concerns Assessment Noted Time PHQ-9 Depression Total Score: 1 02/23/20 25 9:35 AM EDT documented as of this encounter Care Teams Health Unit Supervisor Relationship Specialty Start Date End Date Jodi Chowdary FNP 230 [place] [address] PCP - General Family Medicine 09/28/24 Leeanne Vargas MD [address] [facility] [address] [place] [address] Rheumatology 09/28/24 Luci Theodore NP [address] [place] [address] Urology 09/28/24 Bin Scanlon MD [address] [place] [address] [address] [place] [address] Obstetrics and Gynecology 09/28/24 Tylor Mathew MD 2 [facility] [address] [place] [address] Ophthalmology 09/28/24 Christian Anthony [address] [place] [phone] Nephrology 09/28/24 Remington Chairez MD [address] [place] [address] Dr [address] [place] [address] Neurology 09/28/24 Erwin Cortes Hide And Skin Fleshing Machine OperatorRail Engineer 02/10/24 documented as of this encounter
--- OUTSIDE RECORDS SUMMARY | 2025-03-20 07:21 | XMS_ITS | Encounter Summary ---
Author Organization [employer] Address [address] [facility] [address] [place] [address] Care Team Providers Care Control Room Operator Name Role Phone Leeanne Vargas MD Unavailable Luci Theodore NP Unavailable Bin Scanlon MD Unavailable Tylor Mathew MD Unavailable [phone] Jodi Chowdary Primary Care Provider [phone] Christian Anthony Unavailable Remington Chairez MD Unavailable Reason for Visit * Reason Comments Med Refill Encounter Details Date Type Department Care Team (Late st Contact Info) Description 01/06/2025 Refill [facility] [address] [place] [address] Jodi Chowdary FNP [address] [place] [address] Social History Tobacco Use Types Packs/Day Years [...] Description 04/19/2025 10:00 AM EDT Office Visit [facility] [address] [place] [address] Jodi Chowdary FNP [address] [place] [address] documented as of this encounter Visit Diagnoses Not on filedocumented in this encounter Additional Health Concerns Assessment Noted Time PHQ-9 Depression Total Score: 4 02/17/20 24 10:37 AM EDT documented as of this encounter Care Teams Control Room Operator Relationship Specialty Start Date End Date Jodi Chowdary FNP [address] [place] [address] PCP - General Family Medicine 09/28/24 Leeanne Vargas MD [address] [place] [id number] Rheumatology 09/28/24 Luci Theodore NP [address] [place] [address] Urology 09/28/24 Bin Scanlon MD [address] [place] [address] [address] [place] [address] Obstetrics and Gynecology 09/28/24 Tylor Mathew MD [address] [place] [address] Ophthalmology 09/28/24 Christian Anthony [address] [place] [phone] Nephrology 09/28/24 Remington Chairez MD [address] [place] [address] Neurology 09/28/24 Erwin Cortes Tunnel Kiln OperatorServer Administrator 02/10/24 documented as of this encounter
--- OUTSIDE RECORDS SUMMARY | 2025-03-20 07:21 | XMS_ITS | Encounter Summary ---
Author Organization [employer] Address [address] [facility] [address] [place] [address] Care Team Providers Care Medical Office Manager Name Role Phone Jodi Chowdary Primary Care Provider [phone] Leeanne Vargas MD Unavailable Luci Theodore NP Unavailable Bin Scanlon MD Unavailable Tylor Mathew MD Unavailable [phone] Jodi ChowdaryP Primary Care Provider [phone] Christian Anthony Unavailable Remington Chairez MD Unavailable [phone] Encounter Details Date Type Department Care Team (Late st Contact Info) Description 10/09/2023 Abstract [facility] [address] [place], [place] [id number] Melanie George Social History Tobacco Use Types Packs/Day Years Used Date Smoking Tobacco: Never Smokeless Tobacco: Never Depression Answer Date Recorded Patient Health Questionnaire-9 Score 4 03/19/2023 Housing Stability Answer Date Recorded What is [...] Date Recorded Patient Health Questionnaire-2 Score 2 03/19/2023 Comments Unknown Sex and Gender Information Value Date Recorded Sex Assigned at Female 09/22/2022 10:19 AM EDT Legal Sex Female 10:19 AM EDT Gender Identity Female 09/22/2022 10:19 AM EDT Sexual Orientation Straight 09/22/2022 10 :19 AM EDT documented as of this encounter Plan of Treatment Upcoming Encounters Date Type Department Care Team ([facility] st Contact Info) Description 04/19/2025 10:00 AM EDT Office Visit [facility] [address] [place] [address] Jodi Chowdary FNP [address] [place] [address] documented as of this encounter Procedures Procedure Name Priority Date/Time Associated Diagnosis Comments COLONOSCOPY Routine 12/14/2020 documented in this encounter Results * Colonoscopy (12/14/2020) Colonoscopy Normal Normal Narrative Melanie George - 12/14/2020 Repeat in 5 years due to tubular adenoma us Historical Provider HEALTH MAINTENANCE Final Result documented in this encounter Visit Diagnoses Not on filedocumented in this encounter Additional Health Concerns Assessment Noted Time PHQ-9 Depression Total Score: 4 03/19/20 23 2:41 PM EDT documented as of this encounter Care Teams Medical Office Manager Relationship Specialty Start Date End Date Jodi Chowdary FNP [address] [place] [address] PCP - General Family Medicine 07/19/22 09/27/24 Jodi Chowdary FNP [address] [place] [address] PCP - General Family Medicine 09/28/24 Leeanne Vargas MD [address] [place] [address] [facility] [address] [place] [address] Rheumatology 09/28/24 Luci Theodore NP [address] [place] [address] Urology 09/28/24 Bin Scanlon MD [address] [place] [address] [address] [place] [address] Obstetrics and Gynecology 09/28/24 Tylor Mathew MD [address] [place] [address] Ophthalmology 09/28/24 Christian Anthony [address] [place] [phone] Nephrology 09/28/24 Remington Chairez MD [address] [place] [address] [address] [place] [address] Neurology 09/28/24 Erwin Cortes Admin AssistantUi Software Developer 02/10/24 documented as of this encounter
--- OUTSIDE RECORDS SUMMARY | 2025-03-20 07:21 | XMS_ITS | Clinical Summary ---
Author Organization [employer] Address [address] [place] [address] Care Team Providers Care Check Inspector Name Role Phone Leeanne Vargas MD Unavailable Luci Theodore NP Unavailable Bin Scanlon MD Unavailable Tylor Mathew MD Unavailable [phone] Jodi Chowdary DIRECTOR CONSUMER AFFAIRS Primary Care Provider [phone] Christian Anthony Unavailable Remington Chairez MD Unavailable Allergies No known active allergies Medications * This document contains information received from the source organization and may not represent a complete record from that organization. Alcohol Swabs (Alcohol Prep) 70 % pads USE DIRECTED TWICE DAILY 100 each 11 10/02/20 23 Active simvastatin (Zocor) 40 MG tabletIndicatio ns:Type 2 diabetes mellitus without complication, without long-term current use of insulin (CMS/[facility]) TAKE 1 TABLET BY MOUTH EVERY EVENING 90 tablet 3 07/21/20 24 Active TRUEplus Lancets 33G misc TEST BLOOD SUGAR 3 TIMES A DAY 100 each 11 08/30/20 24 Active FREESTYLE LITE test stripIndication s:Type 2 diabetes mellitus without complication, without long-term current use of insulin (CMS/HCC) TEST BLOOD SUGAR TWICE DAILY 100 strip 11 11/22/20 24 Active gabapentin (Neurontin) 100 MG capsule TAKE 1 CAPSULE BY MOUTH AT BEDTIME 90 capsule 1 12/23/19 25 Active ketoconazole (NIZOral) 2 % shampooIndicati ons:Androgenic alopecia APPLY TO SCALP AND LEAVE ON FOR 5 MINUTES THEN RINSE OFF TWICE A WEEK 120 mL 1 12/30/19 25 Active fluticasone (Flonase) 50 MCG/ACT nasal sprayIndication s:Seasonal allergies INHALE 1 TO 2 SPRAYS IN EACH NOSTRIL EVERY MORNING DIRECTED 16 g 5 02/11/20 25 Active empagliflozin (Jardiance) 25 MG Take 1 tablet (25 mg) by mouth in the morning. 90 tablet 3 02/23/20 25 Active cetirizine (ZyrTEC) 10 MG tabletIndicatio ns:Seasonal allergies TAKE 1 TABLET BY MOUTH ONCE DAILY NEEDED FOR ALLERGIES 90 tablet 3 02/23/20 25 Active Ketotifen Fumarate 0.035 % solutionIndicat ions:Seasonal allergies Administer 1 drop into affected eye(s) if needed in the morning and at bedtime (allergies). 10 mL 02/23/20 25 Active lidocaine (Xylocaine) 5 % ointmentIndicat ions:Arthropath y apply by topical route 1 - 3 times every day to affected area(s) as needed 50 g 1 02/23/20 25 Active losartan (Cozaar) 25 MG tabletIndicatio ns:Primary hypertension TAKE 1 TABLET BY MOUTH EVERY MORNING 90 tablet 3 02/23/20 25 Active minoxidil (Loniten) 2.5 MG tabletIndicatio ns:Androgenic alopecia Take 1 tablet (2.5 mg) by mouth Once per day. 90 tablet 1 02/23/20 25 026 Active metFORMIN (Glucophage) 1000 MG tablet TAKE 1 TABLET BY MOUTH TWICE DAILY IN THE MORNING AND IN THE EVENING 180 tablet 02/23/20 25 Active venlafaxine XR (Effexor XR) 37.5 MG 24 hr capsule TAKE 1 CAPSULE BY MOUTH EVERY MORNING WITH FOOD 90 capsule 1 02/23/20 25 Active cholecalciferol (Vitamin D-3) 25 MCG tabletIndicatio ns:Vitamin D deficiency TAKE 1 TABLET BY MOUTH EVERY MORNING 90 tablet 3 03/15/20 25 Active ketotifen (Zaditor) 0.025 % ophthalmic solutionIndicat ions:Seasonal allergies ketotifen 0.025 % (0.035 %) eye drops INSTILL 1 DROP INTO THE AFFECTED EYE(S) TWICE DAILY NEEDED FOR ALLERGIES 5 mL 3 02/17/20 24 025 Discontinued(R eorder (will not trigger notification to Pharmacy)) lidocaine (Xylocaine) 5 % ointmentIndicat ions:Arthropath y apply by topical route 1 - 3 times every day to affected area(s) as needed 50 g 1 02/17/20 24 025 Discontinued(R eorder (will not trigger notification to Pharmacy)) cholecalciferol (Vitamin D-3) 25 MCG tabletIndicatio ns:Vitamin D deficiency TAKE 1 TABLET BY MOUTH EVERY MORNING 90 tablet 3 03/23/20 24 025 Discontinued minoxidil (Loniten) 2.5 MG tabletIndicatio ns:Androgenic alopecia Take 1 tablet (2.5 mg) by mouth Once per day. 90 tablet 3 06/24/20 24 025 Discontinued(R eorder (will not trigger notification to Pharmacy)) losartan (Cozaar) 25 MG tabletIndicatio ns:Primary hypertension TAKE 1 TABLET BY MOUTH EVERY MORNING 90 tablet 3 07/21/20 24 025 Discontinued(R eorder (will not trigger notification to Pharmacy)) metFORMIN (Glucophage) 1000 MG tablet TAKE 1 TABLET BY MOUTH TWICE DAILY IN THE MORNING AND IN THE EVENING 180 tablet 3 08/16/20 24 025 Discontinued(R eorder (will not trigger notification to Pharmacy)) venlafaxine XR (Effexor XR) 37.5 MG 24 hr capsule TAKE 1 CAPSULE BY MOUTH EVERY MORNING WITH FOOD 90 capsule 3 09/19/20 24 025 Discontinued(R eorder (will not trigger notification to Pharmacy)) Jardiance 25 MG TAKE 1 TABLET BY MOUTH EVERY MORNING 90 tablet 3 10/19/20 24 025 Discontinued(R eorder (will not trigger notification to Pharmacy)) cetirizine (ZyrTEC) 10 MG tabletIndicatio ns:Seasonal allergies TAKE 1 TABLET BY MOUTH ONCE DAILY NEEDED FOR ALLERGIES 90 tablet 3 11/21/20 24 025 Discontinued(R eorder (will not trigger notification to Pharmacy)) sulindac (Clinoril) 200 MG tablet Take 200 mg by mouth once a day as Needed for pain 60 tablet 2 01/12/20 25 025 Discontinued(T herapy completed) Active Problems Problem Noted Date Diagnosed Date Hepatic steatosis 02/23/2025 Overview (02/23/2025): Lab Results Component Value Date AST 20 02/26/2024 ALT 18 02/26/2024 TOTPROTEIN 8.0 02/26/2024 ALB 4.6 02/26/2024 ALP 68 02/26/2024 TOTALBILIRUB 0.4 02/26/2024: Ultrasound abdomen with elastography demonstrated mildly increased hepatic echogenicity suggestive of steatosis. Stiffness 1.71M/S. Assessment & Plan (02/23/2025 5:29 PM EDT): -Denies history of excess alcohol consumption -Reviewed lifestyle interventions including routine physical activity, diet rich in fruits, vegetables, and healthy fats. Limited/no alcohol use. May consider coffee intake (3 cups per day) Endometrial thickening on ultrasound 09/28/2024 Overview (09/28/2024): February 2024 consult note: [facility] [employer] - Dr. Scanlon. US follow up - double wall endometrial thickness 5mm. Fibroid noted. Plan to monitor. Will plan to repeat the pelvic US periodically. Assessment & Plan (02/23/2025 5:28 PM EDT): Reports upcoming appt scheduled with [employer] Healthcare maintenance 07/02/2023 Overview (02/23/2025): Pap: October 2020 w/ Dr. Scanlon, pap/HPV neg Colonoscopy: Nov 2020, due Nov 2025 Mammo: BIRADS 1 on 11/25/24 Dental: UTD Eye exam: CEE 01/27/24 (Dr. Mathew) w/o retinopathy Podiatry: established DEXA: Osteopenia (T-score value of -1.4 in the femoral neck). February 2024. Last comprehensive medical review: 02/22/25 Essential hypertension 03/22/2023 Overview (03/22/2023): ?? Continue losartan 25mg daily ?? Goal <130/80 mmHg; Well controlled with current regimen ?? Continue with low salt diet and routine exercise Assessment & Plan (02/23/2025 5:26 PM EDT): Well-controlled, continue as above Other specified anxiety disorders 03/20/2023 Overview (02/18/2024): Continues following with therapist Continue venlafaxine 37.5mg daily Diabetic nephropathy associa robinson with type 2 diabetes mellitus 02/10/2023 Stage 2 chronic kidney disease 10/05/2018 Overview (02/22/2025): Following with [facility] - Dr. Christian Anthony. 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 Chairez. Plan to follow-up as needed. Asymptomatic. Type 2 diabetes mellitus 11/28/2015 Overview (02/23/2025): Lab Results Component Value Date HGBA1C 8.2 (A) 02/22/2025 HGBA1C 8.2 (A) 09/28/2024 HGBA1C 8.2 (A) 02/17/2024 HGBA1C 7.3 02/06/2023 HGBA1C 8.8 (H) 03/08/2021 Education provided re: therapeutic lifestyle changes. Encouraged patient to exercise/walk as much as possible, avoid soda/sugary beverages, drink water, eat high fiber/whole grains, fresh or frozen fruits and veg, try to avoid greasy and/or sugary foods. A1c: above goal, plan to increase lifestyle interventions Microalbumin/Cr:Alb: wnl February 2024. Also established w/ renal Eye exam: CEE 01/27/24 (Dr. Mathew) w/o retinopathy Dental: established w/ dental home Foot exam/peripheral pulses: monofilament WNL 02/17/24 SINGH/ARB: yes Statin: yes Medication regimen: metformin 1000mg BID Jardiance 25mg daily Assessment & Plan (02/23/2025 5:34 PM EDT): A1c goal less than 8%. Shared decision making to proceed with nutrition interventions. If not sufficient, consider med adjustments. Assessment & Plan (09/28/2024 4:06 PM EST): A1c goal less than 8%. Shared decision making to proceed with nutrition interventions. If not sufficient, consider med adjustments. Assessment & Plan (10/11/2023 8:49 AM EST): With A1c above goal and upcoming holiday season, plan to increase Jardiance to 25mg daily. Reviewed med safety and SE. Encouraged frequent, small meals to help prevent low BG. Return precautions reviewed Assessment & Plan (03/22/2023 1:27 PM EDT): Lab Results Component Value Date HGBA1C 7.3 02/06/2023 Previously on Trulicity, although A1c controlled with current regimen. Consider re-start if appropriate in future, but will cont will current regimen for now. Allergic rhinitis 11/28/2015 Overview (03/22/2023): ?? Continue cetirizine PRN ?? 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 Vargas) Continues gabapentin 100mg nightly. APAP PRN. Previous tx: Sulindac (herminia worthingtont. renal concerns) Assessment & Plan (09/28/2024 8:43 AM EST): Following with [facility] (Paula Smith APRN & Dr. Vargas) Continues on Sulindac 200mg daily PRN (goal to taper down) and gabapentin 100mg nightly. APAP PRN. Assessment & Plan (02/18/2024 1:32 PM EDT): Following with [facility] (Paula Sarah, BALER) Continues on Sulindac 200mg daily PRN (goal to taper down) and gabapentin 100mg nightly Kidney cyst, acquired 11/28/2015 Overview (09/28/2024): Renal US in May 2024: IMPRESSION: 1. A 7.5 x 7.2 x 7.4 cm right renal upper pole cyst with septations measured 7 x 5.5 x 5.5 cm on MR of 04/24/2023 and was classified as Bosniak II. Ultrasound of 06/08/2017 demonstrated a 4.8 x 4.9 x 4.6 cm cyst. 2. A 1.4 cm left renal lower pole cyst with possible mural echogenic foci characteristic of calcification is stable in size compared with ultrasound of 06/08/2018. 04/24/2023 MR demonstrated a 1 cm left lower pole Bosniak I cyst. Assessment & Plan (02/23/2025 5:26 PM EDT): Continue to follow with Nephrology (Dr. Anthony - [facility]) and [facility] (FABIAN Theodore) Sep 2023: Per consult note - Most recent CT scan reviewed showed a benign looking right side right side Bosniak 1 of 7.4 cm No further imaging per radiology. Per last Nephrology consult Sep 2024: hx of simple renal cyst. Very stable with no concerns of progression of CKD. Assessment & Plan (09/28/2024 3:57 PM EST): Continue to follow with Nephrology (Dr. Anthony - [facility]) and [facility] (FABIAN Theodore) Sep 2023: Per consult note - Most recent CT scan reviewed showed a benign looking right side right side Bosniak 1 of 7.4 cm No further imaging per radiology. Per last Nephrology consult Sep 2024: hx of simple renal cyst. Very stable with no concerns of progression of CKD. Assessment & Plan (02/18/2024 1:28 PM EDT): Continue to follow with Nephrology (Dr. Anthony - [facility] [place] and urology Sep 2023: Per consult note - Most recent CT scan reviewed showed a benign looking right side right side Bosniak 1 of 7.4 cm No further imaging per radiology. Plan to follow up in 1 year. Assessment & Plan (03/22/2023 1:30 PM EDT): ?? Continue to follow with nephrology and urology Encounters Date Type Department Care Team Description 03/15/2025 Refill [facility] [address] [place] [address] Jodi Chowdary FNP Vitamin D deficiency 02/22/2025 9:15 AM EDT Office Visit [facility] [address] [place] [phone] Jodi Chowdary FNP Essential hypertension (Primary Dx); Kidney cyst, acquired; Stage 2 chronic kidney disease; Type 2 diabetes mellitus without complication, without long-term current use of insulin (CMS/HCC); Other specified anxiety disorders; Seasonal allergic rhinitis due to other allergic trigger; Healthcare maintenance; Seasonal allergies; Arthropathy; Primary hypertension; Androgenic alopecia; Pituitary dwarfism with small sella turcica (CMS/HCC); Endometrial thickening on ultrasound; Hepatic steatosis; Dietary counseling; Exercise counseling 02/22/2025 Travel 02/21/2025 Telephone [facility] [address] [place] [address] Jodi Chowdary FNP Chart Prep 02/13/2025 Patient Outreach [facility] [address], [place] [phone] Jodi Chowdary FNP Pre-visit Planning (SDOH Screening negative and Tobacco screening negative) 02/10/2025 Refill [facility] [address] [place] [address] Jodi Chowdary FNP Seasonal allergies 01/12/2025 Telephone [facility] [address] [place] [address] Jodi Chowdary FNP Medication Question 01/12/2025 Telephone [facility] [address], [place] [phone] Karen Contreras, RN Results 01/06/2025 Refill [facility] [address] [place] [address] Jodi Chowdary FNP 12/29/2024 Refill [facility] [address] [place] [address] Jodi Chowdary FNP Androgenic alopecia 12/21/2024 Refill [facility] [address], [place] [phone] Jodi Chowdary FNP 12/20/2024 Refill [facility] [address], [place] [phone] Jodi Chowdary FNP from Last 3 Months Immunizations Name Administration Dates Next Due Hep B, adult 02/28/2016,02/20/2014,04/05/2008 Influenza injectable quadriv alent IIV4 with preservative 10/05/2018,08/13/2017,08/10/2015 Influenza injectable quadriv alent preservative free 08/21/2023,09/10/2022,08/28/2021,08/06,08/26/2019,07/30/2016 Influenza, High Dose Seasona l, Preservative Free 08/18/2024 Influenza, IIV3, injectable 07/24/2020,1 ,07/25/2011,09/18,08/06/2009,09/08/2008 Influenza, Split (incl. nurys fied surface antigen) 08/08/2013,10/07/2012 Influenza, Unspecified 09/13/2014,2010,09/18/2010,08/06,09/08/2008 MMR 04/05/2008 Moderna Covid-19 Vaccine 12+ 07/01/2022, 10/24/2021,02/15/2021,01/18 Pfizer Covid-19 Vaccine 12+ 08/18/2024 Pfizer Covid-19 Vaccine 12+ Bivalent 09/12/2022 Pneumococcal Conjugate PCV 20 11/10/2022 Pneumococcal Polysaccharide PPSV23 01/08/2011 RSV Bivalent 10/12/2024 SARS-CoV-2, Unspecified 09/12/2022 TD (adult), 2 Lf tetanus tox oid, preservative free, adsorbed 01/08/2011,02/22/2008 Tdap 10/09/2023,08/08/2013 Social History Tobacco Use Types Packs/Day Years Used Date Smoking Tobacco: Never Smokeless Tobacco: Never Tobacco Cessation:Counseling Given: Not Answered Alcohol Answer Date Recorded Frequency of Alcohol [...] your housing situation today? I have colin krys 09/07/[address] you li [...] Orientation Straight 09/22/2022 10 :19 AM EDT Last Filed Vital Signs Vital Sign Reading Time Taken Comments Blood Pressure 127/71 02/22/2025 9:21 AM EDT Pulse 98 02/22/2025 9:21 AM EDT Temperature 36.1 ??C (97 ??F) 02/22/2025 9:21 AM EDT Respiratory Rate 18 02/22/2025 9:21 AM EDT Oxygen Saturation 98% 02/22/2025 9:21 AM EDT Inhaled Oxygen Concentration - - Weight 64.9 kg (143 lb) 02/22/2025 9:21 AM EDT Height 154.9 cm (5' 1 ) 02/22/2025 9:21 AM EDT Body Mass Index 27.02 02/22/2025 9:21 AM EDT Plan of Treatment Upcoming Encounters Date Type Department Care Team (Late st Contact Info) Description 04/19/2025 10:00 AM EDT Office Visit [facility] [address], [place] [phone] Jodi Chowdary FNP [address] [place] [address] Health Maintenance Due Date Last Done Comments CT Colonography 1959 FIT DNA/Cologuard 1959 FIT 1959 FOBT 1960 Sigmoidoscopy 1959 Alcohol/Substance Use Screening 1971 Hepatitis A Vaccines (1 of 2 - Risk 2-dose series) 1978 Zoster Vaccines (1 of 2) 2009 Pap Smear 11/12/2023 11/12/2020 Diabetes: Foot Exam 02/16/2025 02/17/2024, 02/17/2024, 02/17/2024, Additional history exists Lipid Panel 02/25/2025 02/26/2024, 11/24, 03/08/2021 Diabetes: Hemoglobin A1C 05/24/2025 025, 09/28/2024, 02/17/2024, Additional history exists Cervical Cancer Screening 11/12/2025 HPV/Cotest 11/12/2025 11/12/2020 Mammogram 11/25/2025 11/25/2024, 010 12/2023, 11/04/2022, Additional history exists Colonoscopy 12/14/2025 12/14/2020 Colorectal Cancer Screening 12/14/2025 Eye Exam 01/26/2026 01/27/2024 SDOH Screening 02/13/2026 02/13/2025 Depression Screening 02/22/2026 02/22/2025, 02/23/20 25 Tobacco Screening 02/22/2026 02/22/2025 DTaP/Tdap/Td Vaccines (3 - Td or Tdap) 10/09/2033 10/09/2023, 08/08/2013, 01/08/2011, Additional history exists Hepatitis B Vaccines Completed 02/28/2016, 02/20/2014, 04/05/2008 Pneumococcal Vaccine: 50+ Years Completed 11/10/2022, 01/08/2011 Hepatitis C Screening Completed 02/26/2024, 023 COVID-19 Vaccine Completed 08/18/2024, , 09/12/2022, Additional history exists Influenza Vaccine Completed 08/18/2024, , 09/10/2022, Additional history exists RSV Patients and Patients Aged 60 years or older Completed 10/12/2024 HIB Vaccines Aged Out No longer eligi ble based on patient's age to complete this topic HPV Vaccines Aged Out No longer eligi ble based on patient's age to complete this topic IPV Vaccines Aged Out No longer eligi ble based on patient's age to complete this topic Meningococcal Vaccine Aged Out No anais jan eligible based on patient's age to complete this topic RSV under 20 months Aged Out No longe r eligible based on patient's age to complete this topic Rotavirus Vaccines Aged Out No longer eligible based on patient's age to complete this topic Procedures Procedure Name Priority Date/Time Associated Diagnosis Comments POCT GLYCATED HEMOGLOBIN, TOTAL Routine 02/22/2025 9:24 AM EDT Type 2 diabetes mellitus without complication, without long-term current use of insulin ([facility]) POCT GLUCOSE Routine 02/22/2025 9:24 AM EDT Type 2 diabetes mellitus without complication, without long-term current use of insulin ([facility]) BI MAMMOGRAM SCREENING TOMOSYNTHESIS BILATERAL Routine 11/25/2024 11:55 AM EST HEPATITIS C VIRAL RNA, QUANTITATIVE, REAL-TIME PCR Routine 02/26/2024 8:03 AM EDT Routine health maintenance Encounter for routine history and physical examination of adult LIPID PANEL, STANDARD Routine 02/26/2024 8:03 AM EDT Routine health maintenance Encounter for routine history and physical examination of adult DIABETES EYE EXAM Routine 01/27/2024 COLONOSCOPY Routine 12/14/2020 PAP/HPV Routine 11/12/2020 from Last 3 Months or Most Recently Relevant to Health Maintenance Results * (ABNORMAL) POCT HGB A1C (02/22/2025 9:24 AM EDT) Hemoglobin A1C 8.2(A) 4.0 - 6.0 % QC Media Lot # [id number] Lot# Expiration Date Blood 02/22/2025 9:24 AM EDT Jodi Chowdary DIRECTOR [employer]SUMER AFFAIRS POINT OF CARE TEST ENTER/EDIT ORDERABLES Final Result * POCT Glucose (02/22/2025 9:24 AM EDT) Glucose Blood, POC 198 60 - 200 mg/dL Comment:Random QC Media Lot # [id number] Lot# Expiration Date Blood Capillary blood specimen / Unknown 02/22/2025 9:24 AM EDT Jodi Chowdary DIRECTOR [employer] POINT OF CARE TEST ENTER/EDIT ORDERABLES Final Result * BI Mammogram Screening Tomosynthesis Bilateral (11/25/2024 11:55 AM EST) Anatomical Region Laterality Modality Breast Bilateral Mammography 11/25/2024 11:5 5 AM EST Narrative 12/04/2024 9:11 AM EST ? [facility] ? [address] ?[place] [address] ? Mammography Report ? Signed ? Patient: Martin,Deidre ?MR#: [id number] ?? [id number] ? : 1960 ?Acct:[id number] ? Age/Sex: 64 / F ?ADM Date: 11/25/24 ? Loc: HO.MAMMO ? Attending Dr: Jodi Chowdary DIRECTOR CONSUMER AFFAIRS ? Ordering Physician: Jodi Chowdary DIRECTOR CONSUMER AFFAIRS ?Results: 1Negat ?? shailesh ? Date of Service: 11/25/24 ?Follow Up: 1 Year From Orig ?? inal Mammogram ? Procedure(s): MM tomosynthesis screening BI ?? Accession Number(s): [id number] ? cc: Jodi Chowdary DIRECTOR CONSUMER AFFAIRS ? EXAMINATION: ?? MM SCREENING DIGITAL BREAST TOMOSYNTHESIS, BILATERAL ? CLINICAL INFORMATION: ? Screening. Asymptomatic. ? COMPARISON: ?? Mammography: Comparison is made with available priors ? TECHNIQUE: ?? Digital breast mammography with tomosynthesis is performed in both the ?? craniocaudal and mediolateral oblique views along with computer-aided ?? detection (CAD). ? FINDINGS: ?? There are scattered areas of fibroglandular density (ACR BI-RADS breast ?? composition Category b). ? There are no significant masses, abnormal calcifications, or other ?? abnormalities. ? MM/MM tomosynthesis screening BI ?? IMPRESSION: ?? No mammographic evidence of malignancy. ? ASSESSMENT: ? BI-RADS BI-RADS 1 - Negative ? RECOMMENDATION: ?? Routine annual mammography screening. ? 1 year F/U ? This examination should not preclude the clinical evaluation of a ?? suspicious palpable abnormality. ? This patient's information was entered into a reminder system with a ?? target due date for their next mammogram. ? Electronically signed by: ??Steph Liang DO ??12/04/2024 09:08 AM EST ? Dictated By: ?Steph Liang DO ? Signed By: ?<Electronically signed by Steph Liang, DO in OV> ? 12/04/24 0908 ? DD/ 1155 ? TD/TT: 11/25/24 1205 ? Gm Video: ? Procedure Note Constantine, Image - 12/04/2024 [facility] [address] [place], [place] [address] Mammography Report Signed Patient: Lauryn [place]azar DMR#: [id number] : 9Acct:[id number] Age/Sex: 64 / FADM Date: 11/25/24 Loc: HO.MAMMO Attending Dr: Jodi Chowdary DIRECTOR CONSUMER AFFAIRS Ordering Physician: Jodi ChowdaryPResults: 1Negat shailesh Date of Service: 11/25/24Follow Up: 1 Year From Orig inal Mammogram Procedure(s): MM tomosynthesis screening BI Accession Number(s): [id number] cc: Jodi Chowdary DIRECTOR CONSUMER AFFAIRS EXAMINATION: MM SCREENING DIGITAL BREAST TOMOSYNTHESIS, BILATERAL CLINICAL INFORMATION: Screening. Asymptomatic. COMPARISON: Mammography: Comparison is made with available priors TECHNIQUE: Digital breast mammography with tomosynthesis is performed in both the craniocaudal and mediolateral oblique views along with computer-aided detection (CAD). FINDINGS: There are scattered areas of fibroglandular density (ACR BI-RADS breast composition Category b). There are no significant masses, abnormal calcifications, or other abnormalities. MM/MM tomosynthesis screening BI IMPRESSION: No mammographic evidence of malignancy. ASSESSMENT: BI-RADS BI-RADS 1 - Negative RECOMMENDATION: Routine annual mammography screening. 1 year F/U This examination should not preclude the clinical evaluation of a suspicious palpable abnormality. This patient's information was entered into a reminder system with a target due date for their next mammogram. Electronically signed by: Steph Liang DO 12/04/2024 09:08 AM EST Dictated By: Steph Liang DO Signed By: <Electronically signed by Steph Liang DO in OV> 12/04/24 0908 DD/ 1155 TD/TT: 11/25/24 1205 Gm Video: Jodi WINSTON IMG BI PROCEDURES Final Result * Hepatitis C Viral RNA, Quantitative, Real-Time PCR (02/26/2024 8:03 AM EDT) Hepatitis C Viral Load <15 NOT DETECTED NOT DETECTED IU/mL [facility] HCV Log PCR <1.18 NOT DETECTED NOT DETECTED Log IU/mL [facility] Comment:This test was perfor med using Real-Time Polymerase ChainReaction.Reportable Range: 15 IU/mL to 100,000,000 IU/mL(1.18 Log IU/mL to 8.00 Log IU/mL).The analytical performance characteristics of thisassay have been determined by [employer].The modifications have not been cleared or approved bythe FDA. This assay has been validated pursuant to theCLIA regulations and is used for clinical purposes.For more information on this test, go to:http://education.Watchup/faq/HGV48d7(This link is being provided for informational/educational purposes only.)THIS TEST WAS PERFORMED AT:[employer] [place] [id number] MACK MD Blood 02/26/2024 8:03 AM EDT 02/26/2024 11:12 AM EDT Jodi WINSTON LAB BLOOD ORDERABLES Final Res ult [facility] [address] [place] [phone] * Lipid Panel, Standard (02/26/2024 8:03 AM EDT) Triglycerides 68 <150 mg/dL [facility] Comment:Desirable Triglyceri de: less than 150 mg/dLBorderline High Triglyceride 150-199 mg/dLHigh Triglyceride: 200-499 mg/dLVery High Triglyceride: greater than or equal to 5OO mg/dL Cholesterol 152 <200 mg/dL [facility] Comment:Desirable Cholestero l: less than 200 mg/dLBorderline High Cholesterol: 200-239 mg/dLHigh Cholesterol: greater than 239 mg/dL LDL Cholesterol Calculated 81 <100 mg/dL [facility] Comment:Desirable LDL: less than 100 mg/dLNear Optimal/Above Optimal LDL: 110- 129 mg/dLBorderline High LDL: 130-159 mg/dLHigh LDL: 160-189 mg/dLVery High LDL: greater than or equal to 190 mg/dL HDL Cholesterol 58 >40 mg/dL [facility] Comment:Desirable HDL: great er than 40 mg/dL Note: This HDL assay may give artificially low results in patients with liver disease. Blood Venous blood specimen / Unknown 02/26/2024 8:03 AM EDT 02/26/2024 11:12 AM EDT Jodi Chowdary DIRECTOR [employer] LAB BLOOD ORDERABLES Final Res ult [facility] [address] [place] [phone] * Diabetes Eye Exam (01/27/2024) Eye Exam Normal Normal, BIRADS 0 , BIRADS 1 , BIRADS 2, BIRADS 3 , BIRADS 4+ us Tylor Mathew MD HEALTH MAINTENANCE Final Resu lt * Colonoscopy (12/14/2020) Colonoscopy Normal Normal Narrative Melanie George - 12/14/2020 Repeat in 5 years due to tubular adenoma us Historical Provider HEALTH MAINTENANCE Final Result * HM PAP/HPV (11/12/2020) Pap Smear 1. NILM 1. NILM HPV Not Detected Undetected, Indeterminat e, Quantitative , Not Detected Bin Scanlon MD HEALTH MAINTENANCE Final Result from Last 3 Months or Most Recently Relevant to Health Maintenance Insurance [employer] MED[employer]ARE REPLACEMENT Care Teams Check Inspector Relationship Specialty Start Date End Date Jodi Chowdary FNP [address] [place] [address] PCP - General Family Medicine 09/28/24 Leeanne Vargas MD [address] [place] [address] Rheumatology 09/28/24 Luci Theodore NP [address] [place] [address] Urology 09/28/24 Bin Scanlon MD [address] [place] [address] [address] [place] [address] Obstetrics and Gynecology 09/28/24 Tylor Mathew MD [address] [place] [address] Ophthalmology 09/28/24 Christian Anthony [address] [place] [phone] Nephrology 09/28/24 Remington Chairez MD [address] [place] [address] [place] [address] Neurology 09/28/24 Erwin Cortes Boom MasterFlume Tender 02/10/24
--- OUTSIDE RECORDS SUMMARY | 2025-03-20 07:21 | XMS_ITS | Encounter Summary ---
Author Organization [facility] Address [address] [place] [address] Phone Care Team Providers Care Inverted Block Operator Name Role Phone Jodi Chowdary Primary Care Provider [phone] Encounter Details Date Type Department Care Team (Late Contact Info) Description 06/16/2022 Documentation Only [facility] [address] [place] [address] Christian Anthony MD [address] [place] [address] [place] [address] Social History Tobacco Use Types [...] Visit [facility] [address] [place] [address] Christian Anthony MD [address] [place] [address] [place] [address] documented as of this encounter Visit Diagnoses Not on filedocumented in this encounter Care Teams Inverted Block Operator Relationship Specialty Start Date End Date Jodi Chowdary FNP [address] [facility] [place], [place] [phone] PCP - General 09/27/24 documented as of this encounter
--- OUTSIDE RECORDS SUMMARY | 2025-03-20 07:21 | XMS_ITS | Encounter Summary ---
Author Organization [facility] Address [address] [place] [address] Phone Care Team Providers Care Poultry Slaughterer Name Role Phone Jodi Chowdary Primary Care Provider [phone] Encounter Details Date Type Department Care Team (Late Contact Info) Description 08/06/2023 Documentation Only [facility] - Ida SANCHEZ [address] [place] [phone] Christian Anthony MD [address] [place] [address] [place] [address] Social History Tobacco Use Types [...] Visit [facility] [address] [place] [address] Christian Anthony MD [address] [place] [address] [place] [address] documented as of this encounter Visit Diagnoses Not on filedocumented in this encounter Care Teams Poultry Slaughterer Relationship Specialty Start Date End Date Jodi Chowdary FNP [address] [facility] [place] [address] PCP - General 09/27/24 documented as of this encounter
--- OUTSIDE RECORDS SUMMARY | 2025-03-20 07:21 | XMS_ITS | Encounter Summary ---
Author Organization [facility] Address [address] [place] [address] Phone Care Team Providers Care Mailroom Assistant Name Role Phone Jodi Chowdary Primary Care Provider [phone] Encounter Details Date Type Department Care Team (Late Contact Info) Description 11/25/2022 Documentation Only [facility] [address] [place] [address] Christian Anthony MD [address] [place] [address] [place] [address] Social History Tobacco Use Types [...] [facility] [address] [place] [address] Christian Anthony MD [address] [place] [address] [place] [address] documented as of this encounter Visit Diagnoses Not on filedocumented in this encounter Care Teams Mailroom Assistant Relationship Specialty Start Date End Date Jodi Chowdary FNP [address] [facility] [place], [place] [phone] PCP - General 09/27/24 documented as of this encounter
--- OUTSIDE RECORDS SUMMARY | 2025-03-20 07:21 | XMS_ITS | Encounter Summary ---
Author Organization [facility] Address [address] [place] [address] Phone Care Team Providers Care Chair Lift Operator Name Role Phone Jodi Chowdary Primary Care Provider [phone] Encounter Details Date Type Department Care Team (Late Contact Info) Description 08/06/2023 Documentation Only [facility] [address] [place] [address] Christian Anthony MD [address] [place] [address] [place] [address] Social History Tobacco Use Types [...] Visit [facility] [address] [place] [address] Christian Anthony MD [address] [place] [address] [place] [address] documented as of this encounter Visit Diagnoses Not on filedocumented in this encounter Care Teams Chair Lift Operator Relationship Specialty Start Date End Date Jodi Chowdary FNP [address] [facility] [place], [place] [phone] PCP - General 09/27/24 documented as of this encounter
--- OUTSIDE RECORDS SUMMARY | 2025-03-20 07:21 | XMS_ITS | Encounter Summary ---
Author Organization [facility] Address [address] [place] [address] Phone Care Team Providers Care Social Media Manager Name Role Phone Jodi Chowdary Primary Care Provider [phone] Encounter Details Date Type Department Care Team (Late Contact Info) Description 06/24/2022 Documentation Only [facility] [address] [place] [address] Christian Anthony MD [address] [place] [address] [place] [address] Social History Tobacco Use Types [...] [facility] [address] [place] [place] [address] Christian Anthony MD [address] [place] [address] [place] [address] documented as of this encounter Visit Diagnoses Not on filedocumented in this encounter Care Teams Social Media Manager Relationship Specialty Start Date End Date Jodi Chowdary FNP [address] [facility] [place], [place] [phone] PCP - General 09/27/24 documented as of this encounter
--- OUTSIDE RECORDS SUMMARY | 2025-03-20 07:21 | XMS_ITS | Encounter Summary ---
Author Organization [email or web address] Address [address] [place] [address] [address] [place] [address] Care Team Providers Care Competency Evaluated Nurse Aide Name Role Phone Jodi Chowdary Primary Care Provider Leeanne Vargas MD Unavailable Luci Theodore NP Unavailable Bin Scanlon MD Unavailable Tylor Mathew MD Unavailable [phone] Jodi Chowdary Primary Care Provider Christian Anthony Unavailable Remington Chairez MD Unavailable [phone] Encounter Details Date Type Department Care Team (Late st Contact Info) Description 11/12/2022 Abstract [facility] [address] [place], [place] [phone] Provider, MD Sue Social History Tobacco Use Types Packs/Day Years [...] Description 04/19/2025 10:00 AM EDT Office Visit [facility] [address] [place] [address] Jodi Chowdary FNP [address] [place], [place] [phone] documented as of this encounter Visit Diagnoses Not on filedocumented in this encounter Care Teams Competency Evaluated Nurse Aide Relationship Specialty Start Date End Date Jodi Chowdary FNP [address] [place] [address] PCP - General Family Medicine 07/19/22 09/27/24 Jodi Chowdary FNP [address] [place] [address] PCP - General Family Medicine 09/28/24 Leeanne Vargas MD [address] [place] [address] Rheumatology 09/28/24 Luci Theodore NP [address] [place] [address] Urology 09/28/24 Bin Scanlon MD [address] [facility] [address] [place] [address] Obstetrics and Gynecology 09/28/24 Tylor Mathew MD [address] [place] [address] Ophthalmology 09/28/24 Christian Anthony [address] [place] [phone] Nephrology 09/28/24 Remington Chairez MD [address] [place] [address] [place] [address] Neurology 09/28/24 Erwin Cortes Cnc Applications EngineerPhp Wordpress Developer 02/10/24 documented as of this encounter
[2025-03-20 08:16] LABS: Estimated Average Glucose 192 mg/dL; Hemoglobin A1c % 8.3 % (<6.0); Total Hemoglobin (HGBA1C) 3390.1114 umol/L
[2025-03-20 08:37] LABS: Anion Gap 15 (12-20); Blood Urea Nitrogen 19 mg/dL (9-16); Calcium 9.8 mg/dL (8.4-10.2); Carbon Dioxide 26 mmol/L (22-29); Chloride 104 mmol/L (96-108); Estimated Glomerular Filt Rate > 60; Potassium 4.8 mmol/L (3.3-5.1); Sodium 140 mmol/L (135-145)
[2025-03-20 08:39] LABS: Creatinine Urine 80.27 mg/dL; Microalbum/Creatinine Ratio Ur 26.1 ug/mg cr (<30)
== END 2025-03-20 07:18 | disposition home or self-care (01) ==
LOC: HO.LAB 07:17
PROVIDERS: PCP Registered Nurse; Visit Provider Internal Medicine Nephrology
DX: I12.9 Hypertensive chronic kidney disease with stage 1 through stage 4 chronic kidney disease, or unspecified chronic kidney disease (principal); E11.29 Type 2 diabetes mellitus with other diabetic kidney complication; N18.2 Chronic kidney disease, stage 2 (mild)
CPT/HCPCS: 36415; 80051; 82043; 82306; 82310; 82565; 82570; 83036; 84520

== ENCOUNTER 2025-04-06 08:01 | Outpatient (REF) | payer MEDICARE, SELFPAY ==
--- OUTSIDE RECORDS SUMMARY | 2025-04-06 08:04 | XMS_ITS | Encounter Summary ---
Author Organization [facility] [place], Address [address] [place] [address] Phone Care Team Providers Care Certified Personal Finance Counselor Name Role Phone Jodi Chowdary Primary Care Provider [phone] Encounter Details Date Type Department Care Team (Late st Contact Info) Description 06/16/2022 Documentation Only [facility] [place], [address] [facility] [place] [address] Christian Anthony MD [address] [facility] [place] [address] Social History Tobacco Use Types [...] as of this encounter Plan of Treatment Not on file documented as of this encounter Visit Diagnoses Not on filedocumented in this encounter Care Teams Certified Personal Finance Counselor Relationship Specialty Start Date End Date Jodi Chowdary FNP [address] [place] [address] PCP - General 09/27/24 documented as of this encounter
--- OUTSIDE RECORDS SUMMARY | 2025-04-06 08:04 | XMS_ITS | Encounter Summary ---
Author Organization [facility] [facility] Address [address] [facility] 7t [place] [address] Care Team Providers Care Machine Cutter Name Role Phone Jodi Chowdary Primary Care Provider Leeanne Vargas MD Unavailable Luci Theodore NP Unavailable Bin Scanlon MD Unavailable Tylor Mathew MD Unavailable [phone] Jodi Chowdary Primary Care Provider Christian Anthony Unavailable Remington Chairez MD Unavailable [phone] Encounter Details Date Type Department Care Team (Late st Contact Info) Description 11/12/2022 Abstract [facility] [address] [place] [address] Provider, MD Sue Social History Tobacco Use [...] Description 04/19/2025 10:00 AM EDT Office Visit [facility] [address] [place] [address] Jodi Chowdary FNP [address] [place], [place] [phone] documented as of this encounter Visit Diagnoses Not on filedocumented in this encounter Care Teams Machine Cutter Relationship Specialty Start Date End Date Jodi Chowdary FNP [address] [place] [address] PCP - General Family Medicine 07/19/22 09/27/24 Jodi Chowdary FNP [address] [place] [address] PCP - General Family Medicine 09/28/24 Leeanne Vargas MD [address] [place] [address] Rheumatology 09/28/24 Luci Theodore NP [address] [place] [address] Urology 09/28/24 Bin Scanlon MD [address] [facility] [address] [place] [address] Obstetrics and Gynecology 09/28/24 Tylor Mathew MD [address] [facility] [address] [place] [address] Ophthalmology 09/28/24 Christian Anthony [address] [place] [phone] Nephrology 09/28/24 Remington Chairez MD [address] [place] [address] [place] [address] Neurology 09/28/24 Erwin Cortes Specialty Manufacturing SupervisorBench Chemist 02/10/24 documented as of this encounter
--- OUTSIDE RECORDS SUMMARY | 2025-04-06 08:04 | XMS_ITS | Patient Health Record ---
Author Organization [facility] Address [address] [place] [address] Care Team Providers Care Editorial Cartoonist Name Role Phone Syd PAT, Blanca Primary Care Provider Unavailab Barron Vega Jr Unavailable Reason For Referral No Information Medications Medication SIG (Take, Route, Frequency, Duration) Notes Start Date End Date Status Vitamin D3 25 MCG (1000 UT) 1 tablet Ora lly Once a day for 30 day(s) Active metFORMIN HCl 1000 MG 1 tablet with a me al Orally Active Januvia 100 MG TAKE 1 TABLET BY ETHAN TH EVERY MORNING Oral for 30 Active MiraLax (colon prep) 8.3 ounce ((238) grams mixed with Gatorade or Crystal Light orally begin at 5:00 p.m. the day before the procedure for 1 day 10/11/2020 Active Simvastatin 40 MG TAKE 1 TABLET BY ETHAN TH EVERY EVENING Oral for 30 Active Venlafaxine HCl ER 37.5 MG TAKE 1 CAPSUL E BY MOUTH EVERY MORNING WITH FOOD Oral for 30 Active glipiZIDE XL 5 MG TAKE 1 TABLET BY ETHAN TH TWICE DAILY IN THE MORNING AND IN THE EVENING Oral for 30 Active Irbesartan 75 MG TAKE 1 TABLET BY ETHAN TH EVERY MORNING Oral for 30 Active Gabapentin 100 MG TAKE 1 CAPSULE BY MO UTH AT BEDTIME Oral for 30 Active Immunizations Vaccine Route Administration Date Status Comme nts Influenza Unknown 07/24/2020 Administered Social History Tobacco Use: Social History Observation Description Date Details (start date - stop date) Never Smoker NA - NA Tobacco Use/Smoking Question Answer Notes Patient is a nonsmoker Alcohol Screen Question Answer Notes Did you have a drink containing alcohol in the p ast year? No Points 0 Interpretation Negative Problems Problem Type SNOMED Code ICD Code Onset Dates Problem Status W/U Status Risk Notes Problem 297974286 Colon cancer screening (Z12.11) Active confirmed Problem [id number] oysterman (current) use of oral hypoglycemic drugs (Z79.84) Active confirmed Plan Of Treatment Future Test Test Name Order Date COLONOSCOPY 10/11/2020 Insurance Providers Payer Name Payer Address Payer Phone Subscriber Number Group Number Insured Name Patient Relationship to Insured Coverage Start Date Coverage End Date [facility] [address] [address] [place], [place] [id number] JODY BERNAL Self - patient is the insured Medical (General) History Medical History History ICD Code diabetes mellitus kidney cyst Surgical History Surgery Date(Month/Year) section carpal tunnel release fibroids in uterus removal
--- OUTSIDE RECORDS SUMMARY | 2025-04-06 08:04 | XMS_ITS | Clinical Summary ---
Author Organization [employer] Address [address] [facility] 7t [place] [address] Care Team Providers Care Mobile Lounge Driver Or Operator Name Role Phone Leeanne Vargas MD Unavailable Luci Theodore NP Unavailable Bin Scanlon MD Unavailable Tylor Mathew MD Unavailable [phone] Jodi Chowdary NETWORK SERVICES PROJECT MANAGER Primary Care Provider [phone] Christian Anthony Unavailable Remington Chairez MD Unavailable Allergies No known active allergies Medications * This document contains information received from the source organization and may not represent a complete record from that organization. Alcohol Swabs (Alcohol Prep) 70 % pads USE DIRECTED TWICE DAILY 100 each 11 10/02/20 23 Active simvastatin (Zocor) 40 MG tabletIndication s:Type 2 diabetes mellitus without complication, without long-term current use of insulin (CMS/[facility]) TAKE 1 TABLET BY MOUTH EVERY EVENING 90 tablet 3 07/21/20 24 Active TRUEplus Lancets 33G misc TEST BLOOD SUGAR 3 TIMES A DAY 100 each 11 08/30/20 24 Active FREESTYLE LITE test stripIndications :Type 2 diabetes mellitus without complication, without long-term current use of insulin (CMS/HCC) TEST BLOOD SUGAR TWICE DAILY 100 strip 11 11/22/20 24 Active gabapentin (Neurontin) 100 MG capsule TAKE 1 CAPSULE BY MOUTH AT BEDTIME 90 capsule 1 12/23/19 25 Active ketoconazole (NIZOral) 2 % shampooIndicatio ns:Androgenic alopecia APPLY TO SCALP AND LEAVE ON FOR 5 MINUTES THEN RINSE OFF TWICE A WEEK 120 mL 1 12/30/19 25 Active fluticasone (Flonase) 50 MCG/ACT nasal sprayIndications :Seasonal allergies INHALE 1 TO 2 SPRAYS IN EACH NOSTRIL EVERY MORNING DIRECTED 16 g 5 02/11/20 25 Active empagliflozin (Jardiance) 25 MG Take 1 tablet (25 mg) by mouth in the morning. 90 tablet 3 02/23/20 25 Active cetirizine (ZyrTEC) 10 MG tabletIndication s:Seasonal allergies TAKE 1 TABLET BY MOUTH ONCE DAILY NEEDED FOR ALLERGIES 90 tablet 3 02/23/20 25 Active Ketotifen Fumarate 0.035 % solutionIndicati ons:Seasonal allergies Administer 1 drop into affected eye(s) if needed in the morning and at bedtime (allergies). 10 mL 3 02/23/20 25 Active lidocaine (Xylocaine) 5 % ointmentIndicati ons:Arthropathy apply by topical route 1 - 3 times every day to affected area(s) as needed 50 g 1 02/23/20 25 Active losartan (Cozaar) 25 MG tabletIndication s:Primary hypertension TAKE 1 TABLET BY MOUTH EVERY MORNING 90 tablet 3 02/23/20 25 Active minoxidil (Loniten) 2.5 MG tabletIndication s:Androgenic alopecia Take 1 tablet (2.5 mg) by mouth Once per day. 90 tablet 1 02/23/20 25 026 Active metFORMIN (Glucophage) 1000 MG tablet TAKE 1 TABLET BY MOUTH TWICE DAILY IN THE MORNING AND IN THE EVENING 180 tablet 3 02/23/20 25 Active venlafaxine XR (Effexor XR) 37.5 MG 24 hr capsule TAKE 1 CAPSULE BY MOUTH EVERY MORNING WITH FOOD 90 capsule 1 02/23/20 25 Active cholecalciferol (Vitamin D-3) 25 MCG tabletIndication s:Vitamin D deficiency TAKE 1 TABLET BY MOUTH EVERY MORNING 90 tablet 3 03/15/20 25 Active cholecalciferol (Vitamin D-3) 25 MCG tabletIndication s:Vitamin D deficiency TAKE 1 TABLET BY MOUTH EVERY MORNING 90 tablet 3 03/23/20 24 025 Discontinued Active Problems Problem Noted Date Diagnosed Date [...] 09/28/2024 Overview (09/28/2024): February 2024 consult note: [facility] [place] RESIDENT ASSOCIATE - Dr. Scanlon. US follow up - double wall endometrial thickness 5mm. Fibroid noted. Plan to monitor. Will plan to repeat the pelvic US periodically. Assessment & Plan (02/23/2025 5:28 PM EDT): Reports upcoming appt scheduled with RESIDENT ASSOCIATE Healthcare maintenance 07/02/2023 Overview (02/23/2025): Pap: October [...] with [facility] - Dr. Christian Anthony. Pituitary dwarfism with [...] Plan (02/23/2025 5:32 PM EDT): Following with [facility] [place] Rheum (Paula Smith APRN & Dr. Vargas) Continues gabapentin 100mg nightly. APAP PRN. Previous tx: Sulindac (dc d.t. renal concerns) Assessment & Plan (09/28/2024 8:43 AM EST): Following with [facility] [place] [facility] (Paula Smith APRN & Dr. Vargas) Continues on Sulindac 200mg daily PRN (goal to taper down) and gabapentin 100mg nightly. APAP PRN. Assessment & Plan (02/18/2024 1:32 PM EDT): Following with [facility] [place] [facility] (Paula Smith APRN) Continues on Sulindac 200mg daily PRN (goal [...] - [facility]) and [facility] [place] Urology (FABIAN Theodore) Sep [...] - [facility] and [facility] [place] Urology (FABIAN Theodore) Sep [...] - [facility] and urology Sep 2023: Per consult note - Most recent CT scan reviewed showed a benign looking right side right side Bosniak 1 of 7.4 cm No further imaging per radiology. Plan to follow up in 1 year. Assessment & Plan (03/22/2023 1:30 PM EDT): ?? Continue to follow with nephrology and urology Encounters Date Type Department Care Team Description 03/15/2025 Refill [facility] [address] [place] [address] Jodi Chowdary FNP Vitamin D deficiency 02/22/2025 9:15 AM EDT Office Visit [facility] [address] [place] [address] Jodi Chowdary FNP Essential hypertension (Primary Dx); [...] counseling; Exercise counseling 02/22/2025 Travel 02/21/2025 Telephone [facility] [address] [place] [address] Jodi Chowdary FNP Chart Prep 02/13/2025 Patient Outreach [facility] [address] [place], [place] [phone] Jodi Chowdary FNP Pre-visit Planning (SDOH Screening negative and Tobacco screening negative) 02/10/2025 Refill [facility] [address] [place] [address] Jodi Chowdary FNP Seasonal allergies 01/12/2025 Telephone [facility] [address] [place] [address] Jodi Chowdary FNP Medication Question 01/12/2025 Telephone [facility] [address] [place], [place] [phone] Karen Contreras RN Results from Last 3 Months Immunizations Immunization Administration Dates Next Due Hep B, adult [...] 04/19/2025 10:00 AM EDT Office Visit [facility] [address] [place] [address] Jodi Chowdary, TISH [address] [place], [place] [phone] Health Maintenance Due Date Last Done Comments CT Colonography 1959 FIT DNA/Cologuard 1959 FIT 1959 FOBT 1959 Sigmoidoscopy 1959 Alcohol/Substance Use Screening 1971 Hepatitis A Vaccines (1 of 2 - Risk 2-dose series) 1978 Zoster Vaccines (1 of 2) 2009 Pap Smear 11/12/2023 11/12/2020 COVID-19 Vaccine ( season) 2025 08/18/2024, 09/12/2022, 09/12/2022, Additional history exists Diabetes: Foot Exam 02/16/2025 02/17/2024, 02/17/2024, 02/17/2024, Additional history exists Lipid Panel 02/25/2025 02/26/2024, 11/24, 03/08/2021 Diabetes: Hemoglobin A1C 05/24/2025 025, 09/28/2024, 02/17/2024, Additional history exists Cervical Cancer Screening 11/12/2025 HPV/Cotest 11/12/2025 11/12/2020 Mammogram 11/25/2025 11/25/2024, 12/2023, 11/04/2022, Additional history exists Colonoscopy 12/14/2025 [...] 01/08/2011 Hepatitis C Screening Completed 02/26/2024, 023 Influenza Vaccine Completed 08/18/2024, , 09/10/2022, Additional [...] patient's age to complete this topic Meningococcal B Vaccine Aged Out No l onger eligible based on patient's age to complete [...] complication, without long-term current use of insulin ([facility]) POCT GLUCOSE Routine 02/22/2025 9:24 AM EDT Type 2 diabetes mellitus without complication, without long-term current use of insulin ([facility]) BI MAMMOGRAM SCREENING TOMOSYNTHESIS BILATERAL Routine 11/25/2024 [...] - 6.0 % QC Media Lot # [id number] Lot# Expiration Date ,026 Blood 02/22/2025 9:24 AM EDT Jodi Chowdary NETWORK SERVICES PROJECT MANAGER POINT OF CARE TEST ENTER/EDIT ORDERABLES Final Result * POCT Glucose (02/22/2025 9:24 AM EDT) Pathologist [facility] Glucose Blood, POC 198 60 - 200 mg/dL Comment:Random QC Media Lot # [id number] Lot# Expiration Date Blood Capillary blood specimen / Unknown 02/22/2025 9:24 AM EDT Jodi Chowdary NETWORK SERVICES PROJECT MANAGER POINT OF CARE TEST ENTER/EDIT ORDERABLES Final Result * BI Mammogram Screening Tomosynthesis Bilateral (11/25/2024 11:55 AM EST) Anatomical Region Laterality Modality Breast Bilateral Mammography 11/25/2024 11:5 5 AM EST Narrative 12/04/2024 9:11 AM EST ? [facility] ? [address] ?[place] [address] ? Mammography Report ? Signed ? Patient: Martin,Lauryn June ?MR#: [id number] ?? [id number] ? : 1960 ?Acct:[id number] ? Age/Sex: 64 / F ?ADM Date: 01/03/25 ? Loc: HO.MAMMO ? Attending Dr: Jodi Chowdary NETWORK SERVICES PROJECT MANAGER ? Ordering Physician: Jodi Chowdary NETWORK SERVICES PROJECT MANAGER ?Results: 1Negat ?? shailesh ? Date of Service: 11/25/24 ?Follow Up: 1 Year From Orig ?? inal Mammogram ? Procedure(s): MM tomosynthesis screening BI ?? Accession Number(s): [id number] ? cc: Jodi Chowdary NETWORK SERVICES PROJECT MANAGER ? EXAMINATION: ?? MM SCREENING DIGITAL BREAST [...] ??Steph Liang DO ??12/04/2024 09:08 AM EST ?? RP ? Dictated By: ?Steph Liang DO ? Signed By: ?<Electronically signed by Steph Liang, DO in OV> ? 12/04/24 0908 ? DD/ 1155 ? TD/TT: 11/25/24 1205 ? Endoscopy Nurse: ? Procedure Note Donotuseinterpreter, Image - 12/04/2024 [facility] [address] [place] [address] Mammography Report Signed Patient: Lauryn Salazar DMR#: [id number] : 9Acct:[id number] Age/Sex: 64 / FADM Date: 11/25/24 Loc: HO.MAMMO Attending Dr: Jodi Chowdary NETWORK SERVICES PROJECT MANAGER Ordering Physician: Jodi ChowdaryPResults: 1Negat shailesh Date of Service: 11/25/24Follow Up: 1 Year From Orig inal Mammogram Procedure(s): MM tomosynthesis screening BI Accession Number(s): [id number] cc: Jodi Chowdary EXAMINATION: MM SCREENING DIGITAL BREAST TOMOSYNTHESIS, BILATERAL [...] 12/04/24 0908 DD/ 1155 TD/TT: 11/25/24 1205 Endoscopy Nurse: Jodi MODIP IMG BI PROCEDURES Final Result * Hepatitis C Viral RNA, Quantitative, Real-Time PCR (02/26/2024 8:03 AM EDT) Hepatitis C Viral Load <15 NOT DETECTED NOT DETECTED IU/mL [facility] HCV Log PCR <1.18 NOT DETECTED NOT DETECTED Log IU/mL [facility] Comment:This test was perfor med using Real-Time Polymerase ChainReaction.Reportable Range: 15 IU/mL to 100,000,000 IU/mL(1.18 Log IU/mL to 8.00 Log IU/mL).The analytical performance characteristics of thisassay have been determined by [employer].The modifications have not been cleared or approved bythe FDA. This assay has been validated pursuant to theCLIA regulations and is used for clinical purposes.For more information on this test, go to:http://education.Streetlife/faq/KFZ61v6(This link is being provided for informational/educational purposes only.)THIS TEST WAS PERFORMED AT:[employer] [place] [phone] MACK MD Blood 02/26/2024 8:03 AM EDT 02/26/2024 11:12 AM EDT us Jodi Chowdary NETWORK SERVICES PROJECT MANAGER LAB BLOOD ORDERABLES Final Res ult [facility] [address] [place] [phone] * Lipid Panel, Standard (02/26/2024 8:03 AM EDT) Pathologist [facility] Triglycerides 68 <150 mg/dL [facility] Comment:Desirable Triglyceri de: less than 150 mg/dLBorderline High Triglyceride 150-199 mg/dLHigh Triglyceride: 200-499 mg/dLVery High Triglyceride: greater than or equal to 5OO mg/dL Cholesterol 152 <200 mg/dL [facility] Comment:Desirable Cholestero l: less than 200 mg/dLBorderline High Cholesterol: 200-239 mg/dLHigh Cholesterol: greater than 239 mg/dL LDL Cholesterol Calculated 81 <100 mg/dL [facility] Comment:Desirable LDL: less than 100 mg/dLNear Optimal/Above Optimal LDL: 110- 129 mg/dLBorderline High LDL: 130-159 mg/dLHigh LDL: 160-189 mg/dLVery High LDL: greater than or equal to 190 mg/dL HDL Cholesterol 58 >40 mg/dL [facility] Comment:Desirable HDL: great er than 40 mg/dL Note: This HDL assay may give artificially low results in patients with liver disease. Blood Venous blood specimen / Unknown 02/26/2024 8:03 AM EDT 02/26/2024 11:12 AM EDT Jodi Chowdary NETWORK SERVICES PROJECT MANAGER LAB BLOOD ORDERABLES Final Res ult [facility] [address] [place] [phone] * Diabetes Eye Exam (01/27/2024) Eye Exam Normal Normal, BIRADS 0 , BIRADS 1 , BIRADS 2, BIRADS 3 , BIRADS 4+ us Tylor Mathew MD HEALTH MAINTENANCE Final Resu lt * Colonoscopy (12/14/2020) Colonoscopy Normal Normal Narrative Melanie George - 12/14/2020 Repeat in 5 years due to tubular adenoma Sue Coello MD HEALTH MAINTENANCE Final Result * PAP/HPV (11/12/2020) Pap Smear 1. NILM 1. NILM HPV Not Detected Undetected, Indeterminat e, Quantitative , Not Detected Bin Scanlon MD HEALTH MAINTENANCE Final Result from Last 3 Months or Most Recently Relevant to Health Maintenance Insurance [employer] MEDICARE REPLACEMENT Care Teams Mobile Lounge Driver Or Operator Relationship Specialty Start Date End Date Jodi Chowdary FNP [address] [place] [address] PCP - General Family Medicine 09/28/24 Leeanne Vargas MD [address] [place] [address] [address] [place] [address] Rheumatology 09/28/24 Luci Theodore NP [address] [place] [address] Urology 09/28/24 Bin Scanlon MD [address] [facility] [address] [place] [address] Obstetrics and Gynecology 09/28/24 Tylor Mathew MD [address] [facility] [address] [place] [address] Ophthalmology 09/28/24 Christian Anthony [address] [place] [phone] Nephrology 09/28/24 Remington Chairez MD [address] [place] [address] [place] [address] Neurology 09/28/24 Erwin Cortes Hydraulic Jack MechanicGate Shear Operator 02/10/24
--- OUTSIDE RECORDS SUMMARY | 2025-04-06 08:04 | XMS_ITS | Encounter Summary ---
Author Organization [facility], Address [address] [place] [address] Phone Care Team Providers Care White Sugar Boiler Name Role Phone Jodi Chowdary Primary Care Provider [phone] Encounter Details Date Type Department Care Team (Late st Contact Info) Description 09/01/2023 Documentation Only [facility], - Ida Madrigal [address] [facility] [address] [place] [phone] Christian Anthony MD [address] [place] [address] [place] [address] Social History Tobacco Use Types [...] on filedocumented in this encounter Care Teams White Sugar Boiler Relationship Specialty Start Date End Date Jodi Chowdary FNP [address] [place] [address] PCP - General 09/27/24 documented as of this encounter
--- OUTSIDE RECORDS SUMMARY | 2025-04-06 08:04 | XMS_ITS | Encounter Summary ---
Author Organization [employer] Address [address] [facility] 7t [place] [address] Care Team Providers Care Molecular Technologist Name Role Phone Leeanne Vargas MD Unavailable Luci Theodore NP Unavailable Bin Scanlon MD Unavailable Tylor Mathew MD Unavailable Jodi Chowdary Primary Care Provider Christian Anthony Unavailable Remington Chairez MD Unavailable [phone] Reason for Visit * Reason Comments Med Refill Encounter Details Date Type Department Care Team (Late st Contact Info) Description 10/24/2024 Refill [facility] [address] [place], [place] [phone] Jodi Chowdary FNP [address] [place], [place] [phone] Social History Tobacco Use Types Packs/Day Years [...] is your housing situation today? I have oclin marcano 09/07/[address] you [...] 04/19/2025 10:00 AM EDT Office Visit [facility] [address] [place] [address] Jodi Chowdary FNP [address] [place] [address] documented as of this encounter Visit Diagnoses Not on filedocumented in this encounter Additional Health Concerns Assessment Noted Time PHQ-9 Depression Total Score: 4 02/17/20 10:37 AM EDT documented as of this encounter Care Teams Molecular Technologist Relationship Specialty Start Date End Date Jodi Chowdary FNP [address] [place] [address] PCP - General Family Medicine 09/28/24 Leeanne Vargas MD [address] [address] Rheumatology 09/28/24 Luci Theodore NP [address] [place] [address] Urology 09/28/24 Bin Scanlon MD [address] [place] [address] [address] [place] [address] Obstetrics and Gynecology 09/28/24 Tylor Mathew MD [address] [place] [address] Ophthalmology 09/28/24 Christian Anthony [address] [place] [phone] Nephrology 09/28/24 Remington Chairez MD [address] [place] [address] [address] [place] [address] Neurology 09/28/24 Erwin Cortes Operating Room ManagerCenter Administrator 02/10/24 documented as of this encounter
--- OUTSIDE RECORDS SUMMARY | 2025-04-06 08:04 | XMS_ITS | Encounter Summary ---
Author Organization [facility] Address [address] [place] [address] Phone Care Team Providers Care Small Products Ii Assembler Name Role Phone Jodi Chowdary Primary Care Provider [phone] Encounter Details Date Type Department Care Team (Late st Contact Info) Description 03/02/2023 Documentation Only [facility], [address] [place] [address] Christian Anthony MD [address] [facility] [place] [address] Social History Tobacco Use Types [...] on filedocumented in this encounter Care Teams Small Products Ii Assembler Relationship Specialty Start Date End Date Jodi Chowdary FNP [address] [place] [address] PCP - General 09/27/24 documented as of this encounter
--- OUTSIDE RECORDS SUMMARY | 2025-04-06 08:04 | XMS_ITS | Encounter Summary ---
Author Organization [facility] Address [address] [place] [address] Phone Care Team Providers Care Primer Powder Blender Wet Name Role Phone Jodi Chowdary Primary Care Provider [phone] Encounter Details Date Type Department Care Team (Late st Contact Info) Description 11/25/2022 Documentation Only [facility] [place], [address] [facility] [address] [place] [address] Christian Anthony MD [address] [facility] [place] [address] Social History Tobacco Use Types [...] on filedocumented in this encounter Care Teams Primer Powder Blender Wet Relationship Specialty Start Date End Date Jodi Chowdary FNP [address] [place] [address] PCP - General 09/27/24 documented as of this encounter
--- OUTSIDE RECORDS SUMMARY | 2025-04-06 08:04 | XMS_ITS | Encounter Summary ---
Author Organization [employer] Address [address] [facility] [address] [place] [address] Care Team Providers Care Corner Block Cutter Name Role Phone Jodi Chowdary Primary Care Provider Leeanne Vargas MD Unavailable Luci Theodore NP Unavailable Bin Scanlon MD Unavailable Tylor Mathew MD Unavailable [phone] Jodi Chowdary Primary Care Provider [phone] Christian Anthony Unavailable Remington Chairez MD Unavailable Encounter Details Date Type Department Care Team (Late st Contact Info) Description 12/22/2022 Orders Only [facility] [address] [place], [place] [phone] Jane Jansen LPN Social History Tobacco Use [...] Description 04/19/2025 10:00 AM EDT Office Visit [facility] [address] [place] [address] Jodi Chowdary FNP [address] [place], [place] [phone] documented as of this encounter Visit Diagnoses Not on filedocumented in this encounter Care Teams Corner Block Cutter Relationship Specialty Start Date End Date Jodi Chowdary FNP [address] [place] [address] PCP - General Family Medicine 07/19/22 09/27/24 Jodi Chowdary FNP [address] [place] [address] PCP - General Family Medicine 09/28/24 Leeanne Vargas MD [address] [facility] [address] [facility] [address] [place] [address] Rheumatology 09/28/24 Luci Theodore NP [address] [place] [address] Urology 09/28/24 Bin Scanlon MD [address] [facility] [address] [place] [address] Obstetrics and Gynecology 09/28/24 Tylor Mathew MD [address] [facility] [address] [place] [address] Ophthalmology 09/28/24 Christian Anthony [address] [place] [address] Nephrology 09/28/24 Remington Chairez MD [address] [place] [address] [place] [address] Neurology 09/28/24 Erwin Cortes Technical Sales EngineerSanitizer 02/10/24 documented as of this encounter
--- OUTSIDE RECORDS SUMMARY | 2025-04-06 08:04 | XMS_ITS | Encounter Summary ---
Author Organization [employer] Address [address] [facility] 7t [place] [address] Care Team Providers Care Graphic Designer Name Role Phone Jodi Chowdary Primary Care Provider [phone] Leeanne Vargas MD Unavailable Luci Theodore NP Unavailable Bin Scanlon MD Unavailable Tylor Mathew MD Unavailable [phone] Jodi Chowdary Primary Care Provider [phone] Christian Anthony Unavailable Remington Chairez MD Unavailable [phone] Encounter Details Date Type Department Care Team (Late st Contact Info) Description 10/09/2023 Abstract [facility] [address] [place], [place] [phone] Melanie George Social History Tobacco Use Types [...] Description 04/19/2025 10:00 AM EDT Office Visit [facility] [address] [place] [address] Jodi Chowdary FNP [address] [place] [address] documented as of this encounter Procedures Procedure [...] documented as of this encounter Care Teams Graphic Designer Relationship Specialty Start Date End Date Jodi Chowdary FNP [address] [place] [address] PCP - General Family Medicine 07/19/22 09/27/24 Jodi Chowdary FNP [address] [place] [address] PCP - General Family Medicine 09/28/24 Leeanne Vargas MD [address] [facility] [address] [place] [address] Rheumatology 09/28/24 Luci Theodore NP [address] [facility] [address] [place] [address] Urology 09/28/24 Bin Scanlon MD [address] [place] [address] [address] [place] [address] Obstetrics and Gynecology 09/28/24 Tylor Mathew MD [address] [place] [address] Ophthalmology 09/28/24 Christian Anthony [address] [place] [phone] Nephrology 09/28/24 Remington Chairez MD [address] [place] [address] [address] [place] [address] Neurology 09/28/24 Erwin Cortes Assistant Sales ManagerRadon Inspector 02/10/24 documented as of this encounter
--- OUTSIDE RECORDS SUMMARY | 2025-04-06 08:04 | XMS_ITS | Encounter Summary ---
Author Organization [facility] Address [address] [place] [address] Phone Care Team Providers Care Orthopedics Pediatric Physician Name Role Phone Joid Chowdary Primary Care Provider [phone] Encounter Details Date Type Department Care Team (Late st Contact Info) Description 02/06/2023 Documentation Only [facility], [address] [facility] [place] [address] Christian Anthony MD [address] [facility] [place] [address] Social History Tobacco Use Types [...] on filedocumented in this encounter Care Teams Orthopedics Pediatric Physician Relationship Specialty Start Date End Date Jodi Chowdary FNP [address] [place] [address] PCP - General 09/27/24 documented as of this encounter
--- OUTSIDE RECORDS SUMMARY | 2025-04-06 08:04 | XMS_ITS | Encounter Summary ---
Author Organization [facility] Address [address] [place] [address] Phone Care Team Providers Care Kier Tender Name Role Phone Jodi Chowdary Primary Care Provider [phone] Encounter Details Date Type Department Care Team (Late st Contact Info) Description 08/06/2023 Documentation Only [facility] [place], [address] [place] [address] Christian Anthony MD [address] [place] [address] Social History Tobacco Use Types [...] on filedocumented in this encounter Care Teams Kier Tender Relationship Specialty Start Date End Date Jodi Chowdary FNP [address] [place] [address] PCP - General 09/27/24 documented as of this encounter
--- OUTSIDE RECORDS SUMMARY | 2025-04-06 08:04 | XMS_ITS | Encounter Summary ---
Author Organization [employer] Address [address] [facility] 7t [place] [address] Care Team Providers Care Can Closing Machine Tender Name Role Phone Leeanne Vargas MD Unavailable Luci Theodore NP Unavailable Bin Scanlon MD Unavailable Tylor Mathew MD Unavailable Jodi Chowdary Primary Care Provider Christian Anthony Unavailable Remington Chairez MD Unavailable Reason for Visit * Reason Comments Med Refill Encounter Details Date Type Department Care Team (Late st Contact Info) Description 12/21/2024 Refill [facility] [address] [place], [place] [phone] Jodi Chowdary FNP [address] [place], [place] [phone] Social History Tobacco Use Types Packs/Day Years [...] Description 04/19/2025 10:00 AM EDT Office Visit [facility] [address] [place] [address] Jodi Chowdary FNP [address] [place] [address] documented as of this encounter Visit Diagnoses Not on filedocumented in this encounter Additional Health Concerns Assessment Noted Time PHQ-9 Depression Total Score: 4 02/17/20 10:37 AM EDT documented as of this encounter Care Teams Can Closing Machine Tender Relationship Specialty Start Date End Date Jodi Chowdary FNP [address] [place] [address] PCP - General Family Medicine 09/28/24 Leeanne Vargas MD [address] [address] Rheumatology 09/28/24 Luci Theodore NP [address] [place] [address] Urology 09/28/24 Bin Scanlon MD [address] [place] [address] [address] [place] [address] Obstetrics and Gynecology 09/28/24 Tylor Mathew MD [address] [place] [address] Ophthalmology 09/28/24 Christian Anthony [address] [place] [phone] Nephrology 09/28/24 Remington Chairez MD [address] [place] [address] [address] [place] [address] Neurology 09/28/24 [employer] Special Ed TeacherFarm Assistant 02/10/24 documented as of this encounter
--- OUTSIDE RECORDS SUMMARY | 2025-04-06 08:04 | XMS_ITS | Encounter Summary ---
Author Organization [facility] [place], Address [address] [place] [address] Phone Care Team Providers Care Cash Applications Associate Name Role Phone Jodi Chowdary Primary Care Provider [phone] Encounter Details Date Type Department Care Team (Late st Contact Info) Description 09/14/2024 Documentation Only [facility] [place], - Ida Madrigal [address] [place] [phone] Anuradha Montemayor [address] [place] [address] Social History Tobacco Use Types [...] on filedocumented in this encounter Care Teams Cash Applications Associate Relationship Specialty Start Date End Date Jodi Chowdary FNP [address] [place] [address] PCP - General 09/27/24 documented as of this encounter
--- OUTSIDE RECORDS SUMMARY | 2025-04-06 08:04 | XMS_ITS | Encounter Summary ---
Author Organization [facility] Address [address] [place] [address] Phone Care Team Providers Care Adult Care Manager Name Role Phone Jodi Chowdary Primary Care Provider [phone] Encounter Details Date Type Department Care Team (Late st Contact Info) Description 02/10/2023 Documentation Only [facility] [place], [address] [place] [address] Christian Anthony MD [address] [facility] [place] [address] Social History Tobacco Use Types [...] on filedocumented in this encounter Care Teams Adult Care Manager Relationship Specialty Start Date End Date Jodi Chowdary FNP [address] [place] [address] PCP - General 09/27/24 documented as of this encounter
--- OUTSIDE RECORDS SUMMARY | 2025-04-06 08:04 | XMS_ITS | Clinical Summary ---
Author Organization [facility] [place], Address [address] [place] [address] [place] [address] Phone Care Team Providers Care Blending Tank Helper Name Role Phone Jodi Chowdary CANVAS CUTTER HAND Primary Care Provider [phone] Allergies No known active allergies Medications acetaminophen [...] Resolved Date Multiple renal cysts 10/05/2020 021 Encounters Date Type Department Care Team Description 03/28/2025 2:00 PM EDT Office Visit [facility] [place], [address] [address] Christian Anthony MD Chronic kidney disease stage 2 (Primary Dx); Benign essential hypertension; Renal disorder due to type 2 diabetes mellitus <Other diabetic kidney complication> (HCC) 03/27/2025 Telephone [facility] [place], [facility] [address] [place] [phone] Concepcion Cain from Last 3 Months Immunizations Immunization Administration Dates Next Due Hepatitis B 02/28/2016,02/20/2014,04/05/2008 Influenza Split 08/08/2013,10/07/2012 Influenza Split High Dose Pr eservative Free IM 08/18/2024 Influenza, Quadrivalent, Pre servative Free 08/21/2023,09/10/2022,08/28/2021,08/06,08/04/2020,08/26/2019,07/30/2016 Influenza, Quadrivalent, Wit h Preservative 10/05/2018,08/13/2017,08/10/2015 Influenza, Unspecified 09/13/2014,2010,09/18/2010,08/06,09/08/2008 MMR 04/05/2008 Moderna SARS-COV-2 07/01/2022,,02/15/2021,01/18 Pneumococcal Conjugate Pcv 20 11/10/2022 Pneumococcal Polysaccharide 01/08/2011 SARS-CoV-2, Unspecified 09/12/2022 Td 01/08/2011,02/22/2008 Tdap 10/09/2023,08/08/2013 Family History Medical History Relation Comments Cancer [...] 05/09/2019 12:00 PM EDT Plan of Treatment Health Maintenance Due Date Last Done Comments Breast Cancer Screening 1960 Colorectal Cancer Screening: Annual FOBT 2008 Colorectal Cancer Screening: Colonoscopy 2008 Colorectal Cancer Screening: Sigmoidoscopy 2008 Hepatitis B Vaccine (1 of 3 - Risk 3-dose series) 2019 02/28/2016, 02/20/2014, 04/05/2008 Diabetes: Ophthalmology Exam 02/13/2020 Diabetes: Pedal Pulse Checked 02/13/2020 Diabetes: Sensory Foot Exam 02/13/2020 Diabetes: Visual Foot Exam 02/13/2020 Diabetes: Hemoglobin A1C 05/24/2025 025, 02/17/2024, 02/06/2023 Pneumococcal Vaccine: 50+ Years Completed , 01/08/2011 Pneumococcal Vaccine: Peds ( 0 to 5 Years) and At-Risk Patients (6 to 49 Years) Discontinued 11/10/2022, 01/08/2011 Influenza Vaccine Completed 08/18/2024, , 09/10/2022, Additional history exists Insurance [employer] MCR Adv PPO [id number]) Care Teams Blending Tank Helper Relationship Specialty Start Date End Date Jodi Chowdary FNP [address] [place] [address] PCP - General 09/27/24
--- OUTSIDE RECORDS SUMMARY | 2025-04-06 08:04 | XMS_ITS | Encounter Summary ---
Author Organization [facility] Address [address] [place] [address] Phone Care Team Providers Care Senior Sas Developer Name Role Phone Jodi Chowdary Primary Care Provider [phone] Encounter Details Date Type Department Care Team (Late st Contact Info) Description 06/24/2022 Documentation Only [facility] [place], [address] [place] [address] Christian Anthony MD [address] [facility] [place] [address] Social History Tobacco Use Types [...] on filedocumented in this encounter Care Teams Senior Sas Developer Relationship Specialty Start Date End Date Jodi Chowdary FNP [address] [place] [address] PCP - General 09/27/24 documented as of this encounter
--- OUTSIDE RECORDS SUMMARY | 2025-04-06 08:04 | XMS_ITS | Encounter Summary ---
Author Organization [facility] [place], Address [address] [place] [address] Phone Care Team Providers Care Senior Benefits Manager Name Role Phone Jodi Chowdary Primary Care Provider [phone] Encounter Details Date Type Department Care Team (Late st Contact Info) Description 08/06/2023 Documentation Only [facility] [place], - Ida Madrigal [address] [facility] [address] [place] [phone] Christian Anthony MD [address] [place] [address] [place] [address] Social History Tobacco Use Types [...] filedocumented in this encounter Care Teams Senior Benefits Manager Relationship Specialty Start Date End Date Jodi Chowdary FNP [address] [place] [address] PCP - General 09/27/24 documented as of this encounter
--- OUTSIDE RECORDS SUMMARY | 2025-04-06 08:04 | XMS_ITS | Encounter Summary ---
Author Organization [employer] Address [address] [facility] 7t [place] [address] Care Team Providers Care Gas Plant Worker Name Role Phone Leeanne Vargas MD Unavailable Luci Theodore NP Unavailable Bin Scanlon MD Unavailable Tylor Mathew MD Unavailable [phone] Jodi Chowdary Primary Care Provider [phone] Christian Anthony Unavailable Remington Chairez MD Unavailable [phone] Reason for Visit * Reason Comments Med Refill Encounter Details Date Type Department Care Team (Late st Contact Info) Description 01/06/2025 Refill [facility] [address] [place] [address] Jodi Chowdary FNP [address] [place] [address] Social History Tobacco Use Types Packs/Day Years [...] 04/19/2025 10:00 AM EDT Office Visit [facility] [address] [place] [address] Jodi Chowdary FNP [address] [place] [address] documented as of this encounter Visit Diagnoses Not on filedocumented in this encounter Additional Health Concerns Assessment Noted Time PHQ-9 Depression Total Score: 4 02/17/20 24 10:37 AM EDT documented as of this encounter Care Teams Gas Plant Worker Relationship Specialty Start Date End Date Jodi Chowdary FNP [address] [place] [address] PCP - General Family Medicine 09/28/24 Leeanne Vargas MD [address] [place] [address] Rheumatology 09/28/24 Luci Theodore NP [address] [place] [address] Urology 09/28/24 Bin Scanlon MD [address] [place] [address] [address] [place] [address] Obstetrics and Gynecology 09/28/24 Tylor Mathew MD [address] [place] [address] Ophthalmology 09/28/24 Christian Anthony [address] [place] [address] Nephrology 09/28/24 Remington Chairez MD [address] [place] [address] [address] [place] [address] Neurology 09/28/24 Erwin Cortes [employer] News ReporterClinical Pharmacy Specialist 02/10/24 documented as of this encounter
[2025-04-06 11:44] LABS: MANUAL DIFF FLAG NO
[2025-04-06 11:46] LABS: Basophils Absolute Auto 0.1 X10*3/uL (0.0-0.2); Basophils Percent Auto 1.6 % (0-2); Eosinophils Absolute Auto 0.3 X10*3/uL (0.0-0.4); Eosinophils Percent Auto 6.5 % (0-4); Hemoglobin 13.3 g/dl (12.0-16.0); Imm Gran Abs Auto 0.01 X10*3/uL (0.00-0.03); Imm Gran Pct Auto 0.2 % (0.0-0.4); Lymphocytes Absolute Auto 1.6 X10*3/uL (1.2-4.9); Lymphocytes Percent Auto 32.1 % (20-40); Mean Corpuscular HGB Conc 32.4 g/dl (31.0-35.0); Mean Corpuscular Hemoglobin 26.5 pg (27.0-33.0); Mean Corpuscular Volume 81.7 fL (80.0-98.0); Monocytes Absolute Auto 0.5 X10*3/uL (0.1-1.2); Monocytes Percent Auto 10.1 % (2-11); Neutrophils Absolute Auto 2.5 x10*3/uL (2.0-8.3); Neutrophils Percent Auto 49.5 % (45-73); Platelet Count 160 X10*3/uL (160-400); Red Blood Count 5.02 X10*6/uL (4.20-5.50); Red Cell Distribution Width 15.5 % (11.0-16.0)
[2025-04-06 12:07] LABS: Alanine Aminotransferase 22 U/L (0-31); Albumin Level 4.4 g/dL (3.5-5.0); Alkaline Phosphatase 61 U/L (39-117); Aspartate Amino Transferase 24 U/L (5-31); Bilirubin Direct 0.2 mg/dL (0.0-0.5); Bilirubin Total 0.5 mg/dL (0.0-1.0); Cholesterol 161 mg/dL (<200); HDL Cholesterol 52 mg/dL (>40); LDL Cholesterol Calculated 93 mg/dL (<100); Total Protein 7.5 g/dL (6.5-8.0); Triglycerides 81 mg/dL (<150)
[2025-04-06 12:27] LABS: TSH reflex Free T4 2.55 uIU/mL (0.32-4.0)
== END 2025-04-06 08:02 | disposition home or self-care (01) ==
LOC: HO.HHCL 08:01
PROVIDERS: Visit Provider Registered Nurse
DX: Z00.00 Encounter for general adult medical examination without abnormal findings (principal); E11.9 Type 2 diabetes mellitus without complications
CPT/HCPCS: 36415; 80061; 80076; 84443; 85025

== ENCOUNTER 2025-04-20 09:48 | Outpatient (AMB) | payer MEDICARE, SELFPAY ==
--- NOTE | 2025-04-20 09:52 | A.OFFVIS_ITS ---
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 No complaints. Last Pap/HPV was negative in 11/11 Last Mammogram was BI-RADS 1 in 12/17 Last Colonoscopy was in 12/13 No previous screening DEXA scan PFSH Medical History Arthritis Renal cyst Dyslipidemia HTN (hypertension) Diabetes Surgical History H/O cervical biopsy History of esophagogastroduodenoscopy (EGD) H/O colonoscopy History of carpal tunnel release H/O cervical polypectomy History of History of bilateral tubal ligation Family History Mother Diabetes Hypertension CVD (cardiovascular disease) Father Hypertension Prostate cancer Sister Lupus Skin cancer Sister Colon cancer Social History Alcohol intake: never Patient Tobacco Use Status: Never used Tobacco Second Hand Smoke Exposure: No Sexual orientation: Straight/Heterosexual Gender identity: Female Female Reproductive History Menstrual Age of Menarche: 12 Date of last pap smear: 11/13/20 Date of Mammogram: 11/25/24 Date of last Bone Density Screenin03/02/24 Review of Systems Const All systems reviewed & are unremarkable except as noted in HPI and below Card Reports as per HPI Resp Reports as per HPI GI Reports as per HPI and Reports no additional complaints Reports as per HPI Physical Exam Vital Signs: Last Vital Signs BP 110/70 04/20/25 09:55 BMI result Body Mass Index 26.4 Const General: cooperative, healthy appearing and comfortable Chest Chest palpation & inspection: normal inspection of the chest and normal palpation of entire chest wall Breast/axilla inspection: normal inspection of the breasts and normal inspection of the axillae Breast/axilla palpation: normal palpation of the breasts, normal palpation of the axillae and no axillary lymphadenopathy Resp Effort & Inspection: normal respiratory effort Auscultation: clear to auscultation bilaterally Percussion: percussion normal Cardio Palpation: normal PMI Rate: regular rate Rhythm: regular rhythm Heart sounds: no murmurs and no rubs Peripheral pulses: Peripheral pulses 2+ throughout GI Inspection: Yes normal to inspection Palpation (GI): Soft to palpation, nontender, no guarding, not rigid and No hepatosplenomegaly present Percussion: Yes normal to percussion Auscultation: normal bowel sounds Rectal Exam - Female: deferred General: Yes bladder normal to palpation External Female Exam: No lesion Speculum Exam - Vagina: normal appearance of the vagina, normal palpation, normal vaginal discharge and not erythematous Speculum Exam - Cervix: normal appearance of the cervix and normal palpation Bimanual exam- vagina & uterus: normal bimanual exam, normal palpation, uterine size normal, bladder normal to palpation, consistency normal and normal palpation Bimanual Exam- Adnexa, other: normal adnexae, no masses and no tenderness Assessment & Plan Assessment & Plan (1) Well woman exam: Code(s): Z01.419 - Encounter for gynecological examination (general) (routine) without abnormal findings Category: Medical Plan: Co testing not indicated since the patient 's age is above 65 with no history of abnormal Pap smears last 25 years, adequately screen for the last 10 years with no history of immunosuppression. Counseled the patient about the recommended dietary allowance of 1200 mg of Calcium & 800 IU of vitamin D. Instructions given the patient to schedule next screening Mammogram in 12/18. Will order DEXA scan . The patient was instructed to perform monthly self-breast exams and to schedule a 2 week DEXA scan follow-up appointment and an annual exam in a year; All questions answered and the patient verbalized understanding. Orders: Orders XR DEXA axial skeleton Today Z78.0 - Asymptomatic menopausal state Coding Level of Care Code Est Pt Prev Care >65y(84042) Diagnoses Well woman exam Z01.419
[2025-04-20 09:55] VITALS: BP 110/70; BMI 26.4
--- OUTSIDE RECORDS SUMMARY | 2025-04-20 10:09 | XMS_ITS | Encounter Summary ---
Author Organization [facility] [place], Address [address] [place] [address] Phone Care Team Providers Care Asset Administrator Name Role Phone Jodi Chowdary Primary Care Provider Encounter Details Date Type Department Care Team (Late st Contact Info) Description 09/14/2024 Documentation Only [facility], - Ida Madrigal [address] [place] [phone] Anuradha Montemayor [address] [place] [address] Social History Tobacco Use Types [...] on filedocumented in this encounter Care Teams Asset Administrator Relationship Specialty Start Date End Date Jodi Chowdary FNP [address] [place] [address] PCP - General 09/27/24 documented as of this encounter
== END 2025-04-20 10:24 | disposition home or self-care (01) ==
LOC: HO.HWS 09:48
PROVIDERS: PCP Registered Nurse; Visit Provider Obstetrics & Gynecology
DX: Z01.419 Encounter for gynecological examination (general) (routine) without abnormal findings (principal)
CPT/HCPCS: 99397; 99459

== ENCOUNTER 2025-04-20 09:48 | Outpatient (REF) | payer MEDICARE, SELFPAY ==
[2025-04-26 11:27] LABS: HPV Genotype 16 Negative (Negative); HPV Genotype 18 Negative (Negative); HPV High Risk Negative (Negative)
== END 2025-04-20 09:49 | disposition home or self-care (01) ==
LOC: HO.LNP 09:48
PROVIDERS: PCP Registered Nurse; Visit Provider Obstetrics & Gynecology
DX: Z01.419 Encounter for gynecological examination (general) (routine) without abnormal findings (principal)
CPT/HCPCS: 87626; 88175; 99397; 99459